=== PATIENT | female | born 1985 | race Caucasian/White ===

== ENCOUNTER 2022-05-10 13:13 | Emergency (ER) | payer BC, OTHER, SELFPAY ==
[2022-05-10 14:26] VITALS: BP 143/74; PULSE 109; RESP 16; TEMP 37.3; O2SAT 98; BMI 47.1
[2022-05-10 14:57] LABS: MANUAL DIFF FLAG NO
[2022-05-10 15:01] LABS: Appearance Urine Clear; Basophils Percent Auto 0.5 % (0-2); Color Urine Yellow; Eosinophils Percent Auto 0.2 % (0-4); Glucose Urine UA Negative (Negative); Hematocrit 38.7 % (37.0-47.0); Hemoglobin 13.6 g/dl (12.0-16.0); Imm Gran Abs Auto 0.04 X10*3/uL (0.00-0.03); Imm Gran Pct Auto 0.7 % (0.0-0.4); Leukocyte Esterase Urine Negative (Negative); Lymphocytes Absolute Auto 0.3 X10*3/uL (1.2-4.9); Lymphocytes Percent Auto 4.5 % (20-40); Mean Corpuscular HGB Conc 35.1 g/dl (31.0-35.0); Mean Corpuscular Hemoglobin 31.1 pg (27.0-33.0); Mean Corpuscular Volume 88.6 fL (80.0-98.0); Mean Platelet Volume 10.5 fL (9.4-12.3); Monocytes Absolute Auto 0.7 X10*3/uL (0.1-1.2); Neutrophils Absolute Auto 4.8 x10*3/uL (2.0-8.3); Neutrophils Percent Auto 82.1 % (45-73); Nitrite Urine Negative (Negative); PH 6.5 (5.0-9.0); Platelet Count 212 X10*3/uL (160-400); Red Blood Count 4.37 X10*6/uL (4.20-5.50); Red Cell Distribution Width 11.9 % (11.0-16.0); Urine Blood Negative (Negative); Urine Ketones Negative (Negative); Urine Protein 300 (3+) mg/dL (Neg-Trace); White Blood Count 5.8 X10*3/uL (4.8-10.8)
[2022-05-10 15:03] LABS: UPreg QC Valid YES; Urine Pregnancy NEGATIVE (NEGATIVE)
[2022-05-10 15:04] LABS: Bacteria Urine Trace (None Seen); Hyaline Casts Urine 0-2 /LPF (0-2); WBC Urine 0-5 /HPF (0-5)
[2022-05-10 15:12] LABS: Anion Gap 14 (12-20); Blood Urea Nitrogen 13 mg/dL (9-16); Calcium 8.7 mg/dL (8.4-10.2); Carbon Dioxide 24 mmol/L (22-29); Chloride 103 mmol/L (96-108); Creatinine Clr Calc Pharmacy 140.6; Estimated Glomerular Filt Rate > 60; Glucose Random 106 mg/dL (60-115); Potassium 4.2 mmol/L (3.3-5.1); Sodium 137 mmol/L (135-145)
[2022-05-10 15:16] LABS: COVID-19 Test Positive (Negative)
--- NOTE | 2022-05-10 16:27 | ED_ITS ---
HPI - Fever General Chief Complaint: Fever Stated Complaint: fever vomiting Time Seen by Provider: 05/10/22 16:10 Source: patient Mode of arrival: ambulatory Limitations: no limitations History of Present Illness HPI Narrative: 29-year-old female who has history of asthma who presents with fever, nausea and vomiting for 24 hours. Patient denies any diarrhea, abdominal pain, cough, chest pain, shortness of breath, headache, neck pain or stiffness. Patient has had 2 COVID vaccinations. Related Data Previous Rx's Medication Instructions Recorded nirmatrelvir 300 mg (150 mg See Rx Instructions PO .COMPLEX 05/10/22 x2)-ritonavir 100 mg tablet,dose #30 ea pack(EUA) (Paxlovid) ondansetron 4 mg disintegrating 4 mg PO Q6H PRN nausea and 05/10/22 tablet vomiting #20 tabs Allergies Allergy/AdvReac Type Severity Reaction Status Date / Time codeine [CODEINE] Allergy Intermediate HIVES Unverified 05/15/20 15:27 codiene Allergy Unknown hives Uncoded 11/08/11 00:00 Review of Systems Review of Systems: Yes all other systems are reviewed and are negative Constitutional: Constitutional: Reports no additional constitutional complaints, Denies body ache(s), Denies chills, Reports fever(s), Denies headache(s) and Denies weakness Eyes: Eyes: Reports no additional eye complaints and Denies change in vision ENT: Reports system reviewed and no additional complaints, except as documented, Denies dizziness, Denies headache(s), Denies nasal congestion, Denies nasal discharge and Denies neck pain Cardiovascular: Cardiovascular: Reports no additional cardiovascular complaints, Denies chest pain, Denies leg edema and Denies dyspnea Respiratory: Respiratory: Reports no additional respiratory complaints, Denies cough and Denies dyspnea Gastrointestinal: Gastrointestinal: Reports no additional gastrointestinal complaints, Denies abdominal pain, Denies diarrhea, Reports nausea and Reports vomiting Genitourinary: Genitourinary: Reports no additional female genitourinary compl aints and Denies urinary incontinence Musculoskeletal: Musculoskeletal: Reports no additional musculoskeletal complaints, Denies back pain, Denies arthralgias, Denies joint swelling, Denies neck pain, Denies numbness and Denies tingling Integumentary/Breasts: Skin/Breast: Reports system reviewed and no additional complaints, except as docu and Denies rash Neurologic: Reports system reviewed and no additional complaints, except as documented, Denies Abnormal speech present, Denies dizziness, Denies headache(s), Denies numbness, Denies tingling and Denies weakness PMFSH Past Medical History Attestation statement: The following information was validated with the patient. Source: old records reviewed and nursing notes reviewed Social History Social History Advance Directives: No Advance Directives Information Provided: No Physical Exam Vital Signs: Vital Signs: Last Vital Signs Temp 99.1 F 05/10/22 14:26 Pulse 109 H 05/10/22 14:26 Resp 16 05/10/22 14:26 BP 143/74 H 05/10/22 14:26 Pulse Ox 98 05/10/22 14:26 O2 Del Method 05/10/22 14:26 BMI result Body Mass Index 47.1 Const: General: cooperative, healthy appearing, comfortable and no acute distress Orientation/consciousness: patient oriented x3 Limitations: no limitations HEENT: Head: Yes normal to inspection Ears: hearing grossly normal bilaterally and TM's normal bilaterally General nose exam: Normal external nose present Face and sinus: Yes normal facial exam Mouth: Normal oral and palatal mucosa present Throat: Yes posterior oropharynx normal, Yes tonsils normal and Yes uvula midline Eyes: General: appearance normal, both eyes and all related structures Pupils: Equal, round and reactive pupils present Neck: Neck: Yes normal visual inspection, Yes full ROM, Yes no lymphadenopathy and Yes no meningeal signs Chest: Chest palpation & inspection: normal inspection of the chest Resp: Effort & Inspection: normal respiratory effort Auscultation: clear to auscultation bilaterally Cardio: Rate: regular rate Rhythm: regular rhythm Peripheral pulses: Peripheral pulses 2+ throughout GI: Inspection: Yes normal to inspection Palpation (GI): Soft to palpation and nontender Auscultation: normal bowel sounds Back/Spine/Pelvis: Thoracic/Lumbar Spine: thoracic and lumbar spine normal to inspection Skin: General skin exam: no rashes or lesions noted Neuro: General: patient oriented x3, no meningeal signs, no focal motor deficits and normal sensation to monofilament Cranial nerves: Yes Equal, round and reactive pupils present Cognition (Neuro): normal cognition Speech: No Abnormal speech present Gait exam (Neuro): Normal gait present Motor exam (neuro): 5/5 motor strength present throughout Extrem: General: Yes normal to inspection, Yes no pedal edema and Yes no calf tenderness MDM - Fever MDM Narrative Medical decision making narrative: 37-year-old female here with flu-like symptoms for 24 hours. Patient had labs and a COVID screen from triage. COVID screen is positive. Patient has no hypoxia or tachypnea. She is afebrile at this time. She is tolerating p.o. fluids. She was provided with a patient information sheet on Paxlovid. Her labs including renal function and liver function are normal. Plan for discharge home with Leni BHATIA and Paxlovid Medical Records Attestation: I reviewed the patient's medical records. Lab Data Attestation: I reviewed the patient's lab results. Result diagrams: 05/10/22 14:39 05/10/22 14:39 Labs: Lab Results 05/10/22 05/10/22 05/10/22 Range/Units 14:39 14:39 14:39 WBC 5.8 (4.8-10.8) X10*3/uL RBC 4.37 (4.20-5.50) X10*6/uL Hgb 13.6 (12.0-16.0) g/dl Hct 38.7 (37.0-47.0) % MCV 88.6 (80.0-98.0) fL MCH 31.1 (27.0-33.0) pg MCHC 35.1 H (31.0-35.0) g/dl RDW 11.9 (11.0-16.0) % Plt Count 212 (160-400) X10*3/uL MPV 10.5 (9.4-12.3) fL Immature Gran % (Auto) 0.7 H (0.0-0.4) % Neut % (Auto) 82.1 H (45-73) % Lymph % (Auto) 4.5 L (20-40) % [place] % (Auto) 12.0 H (2-11) % Eos % (Auto) 0.2 (0-4) % Baso % (Auto) 0.5 (0-2) % Lymph # (Auto) 0.3 L (1.2-4.9) X10*3/uL [place] # (Auto) 0.7 (0.1-1.2) X10*3/uL Eos # (Auto) 0.0 (0.0-0.4) X10*3/uL Baso # (Auto) 0.0 (0.0-0.2) X10*3/uL Abs Immat Gran (auto) 0.04 H (0.00-0.03) X10*3/uL Absolute Neuts (auto) 4.8 (2.0-8.3) x10*3/uL Absolute Nucleated RBC 0.000 (0.0-0.012) X10*3/uL Nucleated RBC % (auto) 0.0 (0.0-0.2) /100WBC Sodium 137 (135-145) mmol/L Potassium 4.2 (3.3-5.1) mmol/L Chloride 103 (96-108) mmol/L Carbon Dioxide 24 (22-29) mmol/L Anion Gap 14 (12-20) BUN 13 (9-16) mg/dL Creatinine 0.81 (0.5-1.4) mg/dL Estim Creat Clear Calc 140.6 Estimated GFR > 60 Random Glucose 106 (60-115) mg/dL Calcium 8.7 (8.4-10.2) mg/dL Total Bilirubin 0.3 (0.0-1.0) mg/dL Direct Bilirubin < 0.2 (0.0-0.5) mg/dL AST 30 (5-31) U/L ALT 31 (0-31) U/L Alkaline Phosphatase 74 (39-117) U/L Total Protein 7.2 (6.5-8.0) g/dL Albumin 4.3 (3.5-5.0) g/dL Urine Color Urine Appearance Urine pH (5.0-9.0) Ur Specific [place] (1.005-1.025) Urine Protein (Neg-Trace) mg/dL Urine Glucose (UA) (Negative) mg/dL Urine Ketones (Negative) mg/dL Urine Blood (Negative) Urine Nitrite (Negative) Ur Leukocyte Esterase (Negative) Urine RBC (0-2) /HPF Urine WBC (0-5) /HPF Ur Squamous Epith Cells (0-2) /HPF Urine Bacteria (None Seen) Hyaline Casts (0-2) /LPF Urine Test (NEGATIVE) COVID-19 (SUJIT) Positive A (Negative) COVID-19 Clin Com See Note 05/10/22 05/10/22 Range/Units 14:39 14:39 WBC (4.8-10.8) X10*3/uL RBC (4.20-5.50) X10*6/uL Hgb (12.0-16.0) g/dl Hct (37.0-47.0) % MCV (80.0-98.0) fL MCH (27.0-33.0) pg MCHC (31.0-35.0) g/dl RDW (11.0-16.0) % Plt Count (160-400) X10*3/uL MPV (9.4-12.3) fL Immature Gran % (Auto) (0.0-0.4) % Neut % (Auto) (45-73) % Lymph % (Auto) (20-40) % [place] % (Auto) (2-11) % Eos % (Auto) (0-4) % Baso % (Auto) (0-2) % Lymph # (Auto) (1.2-4.9) X10*3/uL [place] # (Auto) (0.1-1.2) X10*3/uL Eos # (Auto) (0.0-0.4) X10*3/uL Baso # (Auto) (0.0-0.2) X10*3/uL Abs Immat Gran (auto) (0.00-0.03) X10*3/uL Absolute Neuts (auto) (2.0-8.3) x10*3/uL Absolute Nucleated RBC (0.0-0.012) X10*3/uL Nucleated RBC % (auto) (0.0-0.2) /100WBC Sodium (135-145) mmol/L Potassium (3.3-5.1) mmol/L Chloride (96-108) mmol/L Carbon Dioxide (22-29) mmol/L Anion Gap (12-20) BUN (9-16) mg/dL Creatinine (0.5-1.4) mg/dL Estim Creat Clear Calc Estimated GFR Random Glucose (60-115) mg/dL Calcium (8.4-10.2) mg/dL Total Bilirubin (0.0-1.0) mg/dL Direct Bilirubin (0.0-0.5) mg/dL AST (5-31) U/L ALT (0-31) U/L Alkaline Phosphatase (39-117) U/L Total Protein (6.5-8.0) g/dL Albumin (3.5-5.0) g/dL Urine Color Yellow Urine Appearance Clear Urine pH 6.5 (5.0-9.0) Ur Specific [place] 1.020 (1.005-1.025) Urine Protein 300 (3+) H (Neg-Trace) mg/dL Urine Glucose (UA) Negative (Negative) mg/dL Urine Ketones Negative (Negative) mg/dL Urine Blood Negative (Negative) Urine Nitrite Negative (Negative) Ur Leukocyte Esterase Negative (Negative) Urine RBC 3-5 H (0-2) /HPF Urine WBC 0-5 (0-5) /HPF Ur Squamous Epith Cells 3-5 (0-2) /HPF Urine Bacteria Trace (None Seen) Hyaline Casts 0-2 (0-2) /LPF Urine Test NEGATIVE (NEGATIVE) COVID-19 (SUJIT) (Negative) COVID-19 Clin Com Discharge Plan Discharge Clinical Impression: COVID-19 Patient Disposition: Home, Self-Care Instructions: COVID-19 (Coronavirus Disease 2019) (ED) Additional Instructions: quarantine for 5 days motrin or tylenol for pain or fevr paxlovid is not FDA approved and has an emergency use authorization only. See the fact sheet was provided. Common side effects of vomiting and diarrhea. Prescriptions: New ondansetron 4 mg tablet,disintegrating 4 mg PO Q6H PRN (Reason: nausea and vomiting) Qty: 20 0RF Paxlovid (EUA) 300 mg (150 mg x 2)-100 mg tablets,dose pack See Rx Instructions .ROUTE .COMPLEX Qty: 30 0RF Rx Instructions: take TWO 150 mg tablets of nirmatrelvir with ONE 100 mg tablet of ritonavir twice daily for 5 days Referrals: Physician,None [Primary Care Provider] - 1 week (Your PCP as needed) Stand Alone Forms: Work/School Release Interventions: ED Discharge Assessment Last Done: 05/10/22 17:16 Discharge Date/Time: 05/10/22 17:17
[2022-05-10 16:56] LABS: Alanine Aminotransferase 31 U/L (0-31); Albumin Level 4.3 g/dL (3.5-5.0); Alkaline Phosphatase 74 U/L (39-117); Aspartate Amino Transferase 30 U/L (5-31); Bilirubin Direct < 0.2 mg/dL (0.0-0.5); Bilirubin Total 0.3 mg/dL (0.0-1.0); Total Protein 7.2 g/dL (6.5-8.0)
== END 2022-05-10 17:17 | disposition home or self-care (01) ==
PROVIDERS: Nurse Practitioner Family; Emergency Provider Internal Medicine
DX: U07.1 COVID-19 (principal); R50.9 Fever, unspecified
CPT/HCPCS: 80048; 80076; 81001; 81003; 81025; 85025; 87635; 99282; 99283

== ENCOUNTER 2022-06-23 05:28 | Inpatient (IN) | payer BC, OTHER, SELFPAY ==
[2022-06-23] VITALS (11 sets, daily range): BP systolic 143–184; BP diastolic 78–91; PULSE 80–115; RESP 17–36; TEMP 37–38.7; O2SAT 97–100; BMI 47.7
--- NOTE | ~2022-06-23 | CT_ITS ---
EXAMINATION: CT ABDOMEN AND PELVIS WITH CONTRAST CLINICAL INFORMATION: Abdominal pain. Emergency evaluation COMPARISON: 04/23/2018 TECHNIQUE: Multidetector volumetric images were obtained from the superior aspect of the liver through the pubic symphysis following administration 85 mL of Omnipaque 350 intravenous contrast. Sagittal and coronal reformatted images were obtained on the technologist's workstation. Oral contrast: No This CT examination was performed using dose optimization techniques as appropriate, variously including the following: *Automated exposure control *Adjustment of mA and/or kV according to patient size (this includes techniques or standardized protocols for targeted exams where dose is matched to indication/reason for exam; i.e. extremities or head) *Use of iterative reconstruction technique DLP: 1173 mGy-cm FINDINGS: LUNG BASES: Mild bibasilar atelectasis likely due to poor inspiration and patient motion LIVER, GALLBLADDER, AND BILIARY TREE: Mild hepatic steatosis. No focal hepatic mass. No intrahepatic biliary dilatation. The gallbladder is absent. PANCREAS: Unremarkable. SPLEEN: Unremarkable. ADRENAL GLANDS: Unremarkable. KIDNEYS AND URETERS: The kidneys are normal in size, shape, and attenuation. No hydronephrosis, hydroureter, or calculi seen. No perinephric stranding. BLADDER: Unremarkable. GASTROINTESTINAL TRACT: No bowel obstruction or right or left lower quadrant inflammatory change. The vermiform appendix not clearly identified. ABDOMINAL WALL: No significant hernia is appreciated. LYMPH NODES: Normal. VASCULAR: Unremarkable. PELVIC VISCERA: Unremarkable. OSSEOUS STRUCTURES: Postsurgical change in the lower lumbar spine. No fracture. Degenerative changes in the lower thoracic spine and upper lumbar spine. CT/CT abdomen pelvis w IV con IMPRESSION: No acute abnormality. No bowel obstruction. Fleischner guidelines were followed.
--- NOTE | ~2022-06-23 | XR_ITS ---
EXAMINATION: PORTABLE CHEST 1 VIEW CLINICAL INFORMATION: cough . COMPARISON: 10/24/2011. TECHNIQUE: Portable frontal view of the chest was obtained. FINDINGS: The lungs are hypoexpanded. No focal infiltrate, effusion, edema, or pneumothorax. Cardiac and mediastinal silhouettes are within normal limits for technique. No acute bony abnormality seen. XR/XR chest 1V IMPRESSION: Hypoexpanded but otherwise no evidence of acute disease.
--- NOTE | ~2022-06-23 | MR_ITS ---
EXAMINATION: MR BRAIN WITHOUT CONTRAST CLINICAL INFORMATION: Altered metal status. COMPARISON: Head CT June 23, 2022. TECHNIQUE: Multiplanar, multisequence imaging of the brain was performed without intravenous contrast. Examination was prematurely terminated. No FLAIR sequence was acquired. FINDINGS: There is no acute infarction, mass, hemorrhage, or extra-axial collection. The ventricles, sulci, and basilar cisterns are normal in size and configuration. 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 There is some distortion/narrowing of the cerebral aqueduct. The flow voids of the major intracranial arteries appear intact. The bones and extracranial soft tissues are unremarkable. MR/MR head/brain wo con IMPRESSION: No acute infarct, mass lesion, intracranial hemorrhage, or evidence of hydrocephalus. 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 Given the mass effect, follow-up/surveillance is recommended.
--- NOTE | ~2022-06-23 | CT_ITS ---
EXAMINATION: CT HEAD WITHOUT CONTRAST CLINICAL INFORMATION: Altered mental status COMPARISON: None TECHNIQUE: Contiguous axial imaging was performed from the skull base to vertex without intravenous administration of contrast. This CT examination was performed using dose optimization techniques as appropriate, variously including the following: *Automated exposure control *Adjustment of mA and/or kV according to patient size (this includes techniques or standardized protocols for targeted exams where dose is matched to indication/reason for exam; i.e. extremities or head) *Use of iterative reconstruction technique DLP: 717 mGy-cm FINDINGS: Intracranial structures within normal limits. Patricio-white matter differentiation is preserved. No evolving infarct, mass lesion, mass effect, midline shift, hemorrhage or extra-axial fluid collections are identified. There is mild disconjugate gaze otherwise intraorbital structures are unremarkable. Bony structures are intact, soft tissues are within normal limits. Sinuses and mastoids are free of disease. CT/CT head/brain wo IV con IMPRESSION: No acute intracranial pathology.
--- NOTE | ~2022-06-23 | MR_ITS ---
EXAMINATION: MR BRAIN WITHOUT AND WITH CONTRAST CLINICAL INFORMATION: Follow-up encephalitis. COMPARISON: Prior brain MRI from 06/25/2022. TECHNIQUE: Multiplanar, multisequence imaging of the brain was performed before and after the intravenous administration of 10 mL of Gadavist. Limited study with motion artifacts. FINDINGS: No diffusion abnormalities are identified to suggest an acute infarct. The ventricles are normal in size. No mass effect or midline shift is seen. A few scattered punctate foci of T2 hyperintense signal change in the cerebral white matter are entirely nonspecific. No extra-axial fluid collections are seen. The brainstem and cerebellum are normal. There is no abnormal parenchymal or leptomeningeal enhancement. The gradient refocused acquisition demonstrates no pathologic magnetic susceptibility artifact to indicate underlying acute or chronic blood products. The craniovertebral junction, marrow signal, and midline structures are normal. The major intracranial flow voids at the level of the [place] are preserved. The dural venous sinus flow voids are maintained. The mastoid air cells and paranasal sinuses are well aerated. MR/MR head/brain wo/w con IMPRESSION: Limited study with motion artifacts. No acute process. Minimal nonspecific white matter signal changes. No abnormal enhancement.
--- NOTE | 2022-06-23 06:55 | PC.NURSE ---
EKG completed at 0653.
--- NOTE | 2022-06-23 07:08 | ED_ITS ---
HPI - General Adult General Chief complaint: General Medical <Julio César Herman MD - Last Filed: 06/23/22 15:55> Stated complaint: Vomiting/AMS <Julio César Herman MD - Last Filed: 06/23/22 15:55> Time Seen by Provider: 06/23/22 06:59 <Julio César Herman MD - Last Filed: 06/23/22 15:55> Source: patient, family and old records reviewed <Julio César Herman MD - Last Filed: 06/23/22 15:55> Limitations: altered mental status <Julio César Herman MD - Last Filed: 06/23/22 15:55> History of Present Illness HPI narrative: Per patient's father, she woke up at around 01:00 vomiting. She had altered mental status and that she seemed confused and unable to speak more than 1-2 words. She is able ambulate with assistance to the car to come to the emergency department. Positive vomiting and complaining of severe low back pain. She has a history of back surgery with rods in place per her father. He does not know where was done her how long ago it was however. Unknown medications or other past medical history. It is unknown if she has had similar presentation in the past. She was seen here approximately 1 month ago with a diagnosis of COVID-19. Her father states she was in her usual state of health yesterday and had dinner with the family without apparent physical complaints. <Julio César Herman MD - Last Filed: 06/23/22 15:55> Related Data Home medications: Previous Rx's Medication Instructions Recorded nirmatrelvir 300 mg (150 mg See Rx Instructions PO .COMPLEX 05/10/22 x2)-ritonavir 100 mg tablet,dose #30 ea pack(EUA) (Paxlovid) ondansetron 4 mg disintegrating 4 mg PO Q6H PRN nausea and 05/10/22 tablet vomiting #20 tabs <Julio César Herman MD - Last Filed: 06/23/22 15:55> Allergies/adverse reactions: Allergies Allergy/AdvReac Type Severity Reaction Status Date / Time codeine [CODEINE] Allergy Intermediate HIVES Unverified 05/15/20 15:27 codiene Allergy Unknown hives Uncoded 11/08/11 00:00 <Julio César Herman MD - Last Filed: 06/23/22 15:55> Review of Systems Review of Systems: Unable to complete review of systems secondary to mental status <Julio César Herman MD - Last Filed: 06/23/22 15:55> [facility] Social History Social History: Social History Advance Directives: No Advance Directives Information Provided: No <Julio César Herman MD - Last Filed: 06/23/22 15:55> Physical Exam ED Vital Signs: Vital Signs - 24 hr 06/23/22 05:56 06/23/22 10:13 06/23/22 11:26 Temperature 99.1 F 101.5 F H Pulse Rate 107 H 109 H Respiratory Rate 25 H 22 H Blood Pressure 143/78 H 166/88 H Pulse Oximetry 99 97 Oxygen Delivery Method Room Air Room Air Oxygen Flow Rate 06/23/22 12:11 06/23/22 13:55 06/23/22 13:57 Temperature 98.6 F 98.6 F Pulse Rate 100 115 H 113 H Respiratory Rate 26 H 28 H 24 H Blood Pressure 158/91 H 164/86 H Pulse Oximetry 98 98 Oxygen Delivery Method Room Air Room Air Oxygen Flow Rate 06/23/22 15:54 06/23/22 16:37 06/23/22 17:12 Temperature 101.7 F H 101.3 F H Pulse Rate 80 101 H 92 Respiratory Rate 22 H 22 H 36 H Blood Pressure 171/89 H 165/89 H 175/83 H Pulse Oximetry 99 99 100 Oxygen Delivery Method Nasal Cannula Nasal Cannula Nasal Cannula Oxygen Flow Rate 2 2 2 BMI result Body Mass Index 47.7 <Julio César Herman MD - Last Filed: 06/23/22 15:55> Vital Signs - 24 hr 06/23/22 05:56 06/23/22 10:13 06/23/22 11:26 Temperature 99.1 F 101.5 F H Pulse Rate 107 H 109 H Respiratory Rate 25 H 22 H Blood Pressure 143/78 H 166/88 H Pulse Oximetry 99 97 Oxygen Delivery Method Room Air Room Air Oxygen Flow Rate 06/23/22 12:11 06/23/22 13:55 06/23/22 13:57 Temperature 98.6 F 98.6 F Pulse Rate 100 115 H 113 H Respiratory Rate 26 H 28 H 24 H Blood Pressure 158/91 H 164/86 H Pulse Oximetry 98 98 Oxygen Delivery Method Room Air Room Air Oxygen Flow Rate 06/23/22 15:54 06/23/22 16:37 06/23/22 17:12 Temperature 101.7 F H 101.3 F H Pulse Rate 80 101 H 92 Respiratory Rate 22 H 22 H 36 H Blood Pressure 171/89 H 165/89 H 175/83 H Pulse Oximetry 99 99 100 Oxygen Delivery Method Nasal Cannula Nasal Cannula Nasal Cannula Oxygen Flow Rate 2 2 2 BMI result Body Mass Index 47.7 <Jacklyn Petersen MD - Last Filed: 06/23/22 17:48> Const Other: Patient is awake, lying on her side on the stretcher and rocking. <Julio César Herman MD - Last Filed: 06/23/22 15:55> HENMT Other: Normocephalic atraumatic <Julio César Herman MD - Last Filed: 06/23/22 15:55> Eyes Other: Eyes are open. Pupils are equal <Julio César Herman MD - Last Filed: 06/23/22 15:55> Neck Other: No meningismus <Julio César Herman MD - Last Filed: 06/23/22 15:55> Resp Other: Clear and equal bilaterally <Julio César Herman MD - Last Filed: 06/23/22 15:55> Cardio Other: Tachycardic but regular without murmurs rubs or gallops <Julio César Herman MD - Last Filed: 06/23/22 15:55> GI Other: Soft, nontender nondistended <Julio César Herman MD - Last Filed: 06/23/22 15:55> Skin Other: Warm pink and dry without rash. No erythema over well-healed remote surgical site in her low lumbar spine <Julio César Herman MD - Last Filed: 06/23/22 15:55> Neuro Other: No obvious focal neuro deficit, but unable to comply with neuro exam When asked questions she states ?I can not? <Julio César Herman MD - Last Filed: 06/23/22 15:55> Extrem Other: No obvious extremity trauma <Julio César Herman MD - Last Filed: 06/23/22 15 :55> Course Course Course Narrative: Patient with altered mental status and no obvious focal neuro deficit. Anxiety Toxic ingestion No evidence for meningismus. Encephalopathy Gastroenteritis Stroke is very unlikely given nonfocal exam. She does appear to be aphasic but since symptom onset was well outside of thrombolytic window. Will treat with IV fluids, IV Zofran, IV midazolam. Await workup in reassess for changes after medication. 08:27. Patient still appears restless. Still not communicating normally. She has full range of motion of her neck without evidence for meningismus however[place] [address] and a lactic acid of 2.7. She has been vomiting and this could be from a gastroenteritis. Given mental status change, however, it is unclear if she has encephalopathy secondary to encephalitis versus conversion disorder. Await CT scan. In the meantime will start IV antibiotics. I do not feel we should wait for lumbar puncture as this will be difficult given a BMI of 47.7. Antibiotics to include ceftriaxone, vancomycin, and acyclovir. Continue to IV fluids. Will order a 2 L. her lactic acid is under for in her b lood pressure has been normal to high. 30 mL/kilogram not indicated at this time. But of 5 ft 5 in, ideal body weight of 144 lb or 65 kg. 2 L is slightly more than 30 mL/kilogram. 12:14. Patient now has a fever. Treated with Tylenol. Still awaiting CT scan of abdomen. Likely will require a lumbar puncture. 15:03. CT of the abdomen shows no obvious abnormalities. Will proceed with the lumbar puncture 15:53. LP performed after several tries without complication. Spinal fluid looks clear. Full sent to lab for further diagnostics <Julio César Herman MD - Last Filed: 06/23/22 15:55> Procedures Lumbar Puncture Time Out Performed: Yes <Julio César Herman MD - Last Filed: 06/23/22 15:55> Patient Position: left lateral decubitus <Julio César Herman MD - Last Filed: 06/23/22 15:55> Skin Prep: Povidone-Iodine 1% <Julio César Herman MD - Last Filed: 06/23/22 15:55> Local Anesthetic: lidocaine 1% <Julio César Herman MD - Last Filed: 06/23/22 15:55> Amount of anesthesia used (mL): 5 <Julio César Herman MD - Last Filed: 06/23/22 15:55> Spinal Needle Gauge: 22G <Julio César Herman MD - Last Filed: 06/23/22 15:55> Interspace Used: L3-L4 <Julio César Herman MD - Last Filed: 06/23/22 15:55> Opening Pressure (cmH20): 22 <Julio César Herman MD - Last Filed: 06/23/22 15:55> Fluid Initially Obtained: clear <Julio César Herman MD - Last Filed: 06/23/22 15:55> Complications: none <Julio César Herman MD - Last Filed: 06/23/22 15:55> Medical Decision Making MDM Narrative Medical decision making narrative: Patient was signed out to me pending LP results. The lumbar puncture showed a white count of 16 is cells. CSF glucose and protein was normal. No red cells. Antibiotic already started. Including vancomycin Rocephin and acy clovir. Patient has fever, elevated white counts. Elevated lactate. IV fluid was ordered. Patient's case discussed with the hospitalist team. COVID test was negative. Urine showed no signs of infection. Awaiting admissions. <Jacklyn Petersen MD - Last Filed: 06/23/22 17:48> Lab Data Result diagrams: : 06/23/22 07:46 06/23/22 07:46 <Julio César Herman MD - Last Filed: 06/23/22 15:55> Labs: Lab Results 06/23/22 06/23/22 06/23/22 Range/Units 07:46 07:46 07:46 WBC 17.7 H (4.8-10.8) X10*3/uL RBC 4.75 (4.20-5.50) X10*6/uL Hgb 15.0 (12.0-16.0) g/dl Hct 41.8 (37.0-47.0) % MCV 88.0 (80.0-98.0) fL MCH 31.6 (27.0-33.0) pg MCHC 35.9 H (31.0-35.0) g/dl RDW 11.9 (11.0-16.0) % Plt Count 280 D (160-400) X10*3/uL MPV 10.6 (9.4-12.3) fL Immature Gran % (Auto) 0.4 (0.0-0.4) % Neut % (Auto) 90.4 H (45-73) % Lymph % (Auto) 5.0 L (20-40) % [place] % (Auto) 3.9 (2-11) % Eos % (Auto) 0.1 (0-4) % Baso % (Auto) 0.2 (0-2) % Lymph # (Auto) 0.9 L (1.2-4.9) X10*3/uL [place] # (Auto) 0.7 (0.1-1.2) X10*3/uL Eos # (Auto) 0.0 (0.0-0.4) X10*3/uL Baso # (Auto) 0.0 (0.0-0.2) X10*3/uL Abs Immat Gran (auto) 0.07 H (0.00-0.03) X10*3/uL Absolute Neuts (auto) 16.0 H (2.0-8.3) x10*3/uL Absolute Nucleated RBC 0.000 (0.0-0.012) X10*3/uL Nucleated RBC % (auto) 0.0 (0.0-0.2) /100WBC Smear Tech's Comments VERIFIED Sodium 136 (135-145) mmol/L Potassium 4.2 (3.3-5.1) mmol/L Chloride 103 (96-108) mmol/L Carbon Dioxide 20 L (22-29) mmol/L Anion Gap 17 (12-20) BUN 15 (9-16) mg/dL Creatinine 0.73 (0.5-1.4) mg/dL Estim Creat Clear Calc 142.1 Estimated GFR > 60 Random Glucose 138 H (60-115) mg/dL Lactic Acid 2.6 H* (0.5-2.0) mmol/L Lactic Acid F/U @ 2Hr (0.5-2.0) mmol/L Calcium 9.2 (8.4-10.2) mg/dL Total Bilirubin 0.4 (0.0-1.0) mg/dL AST 21 (5-31) U/L ALT 22 (0-31) U/L Alkaline Phosphatase 76 (39-117) U/L Ammonia (13-55) umol/L Total Protein 7.4 (6.5-8.0) g/dL Albumin 4.3 (3.5-5.0) g/dL Urine Color Urine Appearance Urine pH (5.0-9.0) Ur Specific [place] (1.005-1.025) Urine Protein (Neg-Trace) mg/dL Urine Glucose (UA) (Negative) mg/dL Urine Ketones (Negative) mg/dL Urine Blood (Negative) Urine Nitrite (Negative) Ur Leukocyte Esterase (Negative) Urine RBC (0-2) /HPF Urine WBC (0-5) /HPF Ur Squamous Epith Cells (0-2) /HPF Urine Bacteria (None Seen) Hyaline Casts (0-2) /LPF Urine Test (NEGATIVE) CSF Tube Number CSF Volume ML CSF Appearance CSF Color CSF WBC MM*3 CSF RBC MM*3 CSF Neutrophils % CSF Lymphocytes % CSF Monocytes % % CSF Glucose mg/dL CSF Total Protein (15-45) mg/dL Urine Opiates Screen (Not Detect) Urine Fentanyl Screen (Not Detect) Ur Barbiturates Screen (Not Detect) Ur Phencyclidine Scrn (Not Detect) Ur Amphetamines Screen (Not Detect) U Benzodiazepines Scrn (Not Detect) Urine Cocaine Screen (Not Detect) U Marijuana (THC) Screen (Not Detect) Ethyl Alcohol < 10 mg/dL COVID-19 (SUJIT) (Negative) COVID-19 Clin Com 06/23/22 06/23/22 06/23/22 Range/Units 07:46 07:46 07:46 WBC (4.8-10.8) X10*3/uL RBC (4.20-5.50) X10*6/uL Hgb (12.0-16.0) g/dl Hct (37.0-47.0) % MCV (80.0-98.0) fL MCH (27.0-33.0) pg MCHC (31.0-35.0) g/dl RDW (11.0-16.0) % Plt Count (160-400) X10*3/uL MPV (9.4-12.3) fL Immature Gran % (Auto) (0.0-0.4) % Neut % (Auto) (45-73) % Lymph % (Auto) (20-40) % [place] % (Auto) (2-11) % Eos % (Auto) (0-4) % Baso % (Auto) (0-2) % Lymph # (Auto) (1.2-4.9) X10*3/uL [place] # (Auto) (0.1-1.2) X10*3/uL Eos # (Auto) (0.0-0.4) X10*3/uL Baso # (Auto) (0.0-0.2) X10*3/uL Abs Immat Gran (auto) (0.00-0.03) X10*3/uL Absolute Neuts (auto) (2.0-8.3) x10*3/uL Absolute Nucleated RBC (0.0-0.012) X10*3/uL Nucleated RBC % (auto) (0.0-0.2) /100WBC Smear Tech's Comments Sodium (135-145) mmol/L Potassium (3.3-5.1) mmol/L Chloride (96-108) mmol/L Carbon Dioxide (22-29) mmol/L Anion Gap (12-20) BUN (9-16) mg/dL Creatinine (0.5-1.4) mg/dL Estim Creat Clear Calc Estimated GFR Random Glucose (60-115) mg/dL Lactic Acid (0.5-2.0) mmol/L Lactic Acid F/U @ 2Hr (0.5-2.0) mmol/L Calcium (8.4-10.2) mg/dL Total Bilirubin (0.0-1.0) mg/dL AST (5-31) U/L ALT (0-31) U/L Alkaline Phosphatase (39-117) U/L Ammonia 36 35 (13-55) umol/L Total Protein (6.5-8.0) g/dL Albumin (3.5-5.0) g/dL Urine Color Urine Appearance Urine pH (5.0-9.0) Ur Specific [place] (1.005-1.025) Urine Protein (Neg-Trace) mg/dL Urine Glucose (UA) (Negative) mg/dL Urine Ketones (Negative) mg/dL Urine Blood (Negative) Urine Nitrite (Negative) Ur Leukocyte Esterase (Negative) Urine RBC (0-2) /HPF Urine WBC (0-5) /HPF Ur Squamous Epith Cells (0-2) /HPF Urine Bacteria (None Seen) Hyaline Casts (0-2) /LPF Urine Test (NEGATIVE) CSF Tube Number CSF Volume ML CSF Appearance CSF Color CSF WBC MM*3 CSF RBC MM*3 CSF Neutrophils % CSF Lymphocytes % CSF Monocytes % % CSF Glucose mg/dL CSF Total Protein (15-45) mg/dL Urine Opiates Screen (Not Detect) Urine Fentanyl Screen (Not Detect) Ur Barbiturates Screen (Not Detect) Ur Phencyclidine Scrn (Not Detect) Ur Amphetamines Screen (Not Detect) U Benzodiazepines Scrn (Not Detect) Urine Cocaine Screen (Not Detect) U Marijuana (THC) Screen (Not Detect) Ethyl Alcohol mg/dL COVID-19 (SUJIT) Negative (Negative) COVID-19 Clin Com See Note 06/23/22 06/23/22 06/23/22 Range/Units 09:48 09:48 09:48 WBC (4.8-10.8) X10*3/uL RBC (4.20-5.50) X10*6/uL Hgb (12.0-16.0) g/dl Hct (37.0-47.0) % MCV (80.0-98.0) fL MCH (27.0-33.0) pg MCHC (31.0-35.0) g/dl RDW (11.0-16.0) % Plt Count (160-400) X10*3/uL MPV (9.4-12.3) fL Immature Gran % (Auto) (0.0-0.4) % Neut % (Auto) (45-73) % Lymph % (Auto) (20-40) % [place] % (Auto) (2-11) % Eos % (Auto) (0-4) % Baso % (Auto) (0-2) % Lymph # (Auto) (1.2-4.9) X10*3/uL [place] # (Auto) (0.1-1.2) X10*3/uL Eos # (Auto) (0.0-0.4) X10*3/uL Baso # (Auto) (0.0-0.2) X10*3/uL Abs Immat Gran (auto) (0.00-0.03) X10*3/uL Absolute Neuts (auto) (2.0-8.3) x10*3/uL Absolute Nucleated RBC (0.0-0.012) X10*3/uL Nucleated RBC % (auto) (0.0-0.2) /100WBC Smear Tech's Comments Sodium (135-145) mmol/L Potassium (3.3-5.1) mmol/L Chloride (96-108) mmol/L Carbon Dioxide (22-29) mmol/L Anion Gap (12-20) BUN (9-16) mg/dL Creatinine (0.5-1.4) mg/dL Estim Creat Clear Calc Estimated GFR Random Glucose (60-115) mg/dL Lactic Acid (0.5-2.0) mmol/L Lactic Acid F/U @ 2Hr (0.5-2.0) mmol/L Calcium (8.4-10.2) mg/dL Total Bilirubin (0.0-1.0) mg/dL AST (5-31) U/L ALT (0-31) U/L Alkaline Phosphatase (39-117) U/L Ammonia (13-55) umol/L Total Protein (6.5-8.0) g/dL Albumin (3.5-5.0) g/dL Urine Color Yellow Urine Appearance Cloudy Urine pH 8.0 (5.0-9.0) Ur Specific [place] 1.020 (1.005-1.025) Urine Protein 300 (3+) H (Neg-Trace) mg/dL Urine Glucose (UA) Negative (Negative) mg/dL Urine Ketones Negative (Negative) mg/dL Urine Blood Negative (Negative) Urine Nitrite Negative (Negative) Ur Leukocyte Esterase Negative (Negative) Urine RBC 3-5 H (0-2) /HPF Urine WBC 0-5 (0-5) /HPF Ur Squamous Epith Cells 0-2 (0-2) /HPF Urine Bacteria None Seen (None Seen) Hyaline Casts 0-2 (0-2) /LPF Urine Test NEGATIVE (NEGATIVE) CSF Tube Number CSF Volume ML CSF Appearance CSF Color CSF WBC MM*3 CSF RBC MM*3 CSF Neutrophils % CSF Lymphocytes % CSF Monocytes % % CSF Glucose mg/dL CSF Total Protein (15-45) mg/dL Urine Opiates Screen Not Detected (Not Detect) Urine Fentanyl Screen Not Detected (Not Detect) Ur Barbiturates Screen Not Detected (Not Detect) Ur Phencyclidine Scrn Not Detected (Not Detect) Ur Amphetamines Screen Not Detected (Not Detect) U Benzodiazepines Scrn POSITIVE H (Not Detect) Urine Cocaine Screen Not Detected (Not Detect) U Marijuana (THC) Screen POSITIVE H (Not Detect) Ethyl Alcohol mg/dL COVID-19 (SUJIT) (Negative) COVID-19 Clin Com 06/23/22 06/23/22 06/23/22 Range/Units 13:09 15:59 16:00 WBC (4.8-10.8) X10*3/uL RBC (4.20-5.50) X10*6/uL Hgb (12.0-16.0) g/dl Hct (37.0-47.0) % MCV (80.0-98.0) fL MCH (27.0-33.0) pg MCHC (31.0-35.0) g/dl RDW (11.0-16.0) % Plt Count (160-400) X10*3/uL MPV (9.4-12.3) fL Immature Gran % (Auto) (0.0-0.4) % Neut % (Auto) (45-73) % Lymph % (Auto) (20-40) % [place] % (Auto) (2-11) % Eos % (Auto) (0-4) % Baso % (Auto) (0-2) % Lymph # (Auto) (1.2-4.9) X10*3/uL [place] # (Auto) (0.1-1.2) X10*3/uL Eos # (Auto) (0.0-0.4) X10*3/uL Baso # (Auto) (0.0-0.2) X10*3/uL Abs Immat Gran (auto) (0.00-0.03) X10*3/uL Absolute Neuts (auto) (2.0-8.3) x10*3/uL Absolute Nucleated RBC (0.0-0.012) X10*3/uL Nucleated RBC % (auto) (0.0-0.2) /100WBC Smear Tech's Comments Sodium (135-145) mmol/L Potassium (3.3-5.1) mmol/L Chloride (96-108) mmol/L Carbon Dioxide (22-29) mmol/L Anion Gap (12-20) BUN (9-16) mg/dL Creatinine (0.5-1.4) mg/dL Estim Creat Clear Calc Estimated GFR Random Glucose (60-115) mg/dL Lactic Acid (0.5-2.0) mmol/L Lactic Acid F/U @ 2Hr 1.2 (0.5-2.0) mmol/L Calcium (8.4-10.2) mg/dL Total Bilirubin (0.0-1.0) mg/dL AST (5-31) U/L ALT (0-31) U/L Alkaline Phosphatase (39-117) U/L Ammonia (13-55) umol/L Total Protein (6.5-8.0) g/dL Albumin (3.5-5.0) g/dL Urine Color Urine Appearance Urine pH (5.0-9.0) Ur Specific [place] (1.005-1.025) Urine Protein (Neg-Trace) mg/dL Urine Glucose (UA) (Negative) mg/dL Urine Ketones (Negative) mg/dL Urine Blood (Negative) Urine Nitrite (Negative) Ur Leukocyte Esterase (Negative) Urine RBC (0-2) /HPF Urine WBC (0-5) /HPF Ur Squamous Epith Cells (0-2) /HPF Urine Bacteria (None Seen) Hyaline Casts (0-2) /LPF Urine Test (NEGATIVE) CSF Tube Number 4 CSF Volume 1.0 ML CSF Appearance CLEAR CSF Color COLORLESS CSF WBC 16 H* MM*3 CSF RBC 0 MM*3 CSF Neutrophils 65 % CSF Lymphocytes 25 % CSF Monocytes % 10 % CSF Glucose 77 mg/dL CSF Total Protein 42.1 (15-45) mg/dL Urine Opiates Screen (Not Detect) Urine Fentanyl Screen (Not Detect) Ur Barbiturates Screen (Not Detect) Ur Phencyclidine Scrn (Not Detect) Ur Amphetamines Screen (Not Detect) U Benzodiazepines Scrn (Not Detect) Urine Cocaine Screen (Not Detect) U Marijuana (THC) Screen (Not Detect) Ethyl Alcohol mg/dL COVID-19 (SUJIT) (Negative) COVID-19 Clin Com <Julio César Herman MD - Last Filed: 06/23/22 15:55> Lab Results 06/23/22 06/23/22 06/23/22 Range/Units 07:46 07:46 07:46 WBC 17.7 H (4.8-10.8) X10*3/uL RBC 4.75 (4.20-5.50) X10*6/uL Hgb 15.0 (12.0-16.0) g/dl Hct 41.8 (37.0-47.0) % MCV 88.0 (80.0-98.0) fL MCH 31.6 (27.0-33.0) pg MCHC 35.9 H (31.0-35.0) g/dl RDW 11.9 (11.0-16.0) % Plt Count 280 D (160-400) X10*3/uL MPV 10.6 (9.4-12.3) fL Immature Gran % (Auto) 0.4 (0.0-0.4) % Neut % (Auto) 90.4 H (45-73) % Lymph % (Auto) 5.0 L (20-40) % [place] % (Auto) 3.9 (2-11) % Eos % (Auto) 0.1 (0-4) % Baso % (Auto) 0.2 (0-2) % Lymph # (Auto) 0.9 L (1.2-4.9) X10*3/uL [place] # (Auto) 0.7 (0.1-1.2) X10*3/uL Eos # (Auto) 0.0 (0.0-0.4) X10*3/uL Baso # (Auto) 0.0 (0.0-0.2) X10*3/uL Abs Immat Gran (auto) 0.07 H (0.00-0.03) X10*3/uL Absolute Neuts (auto) 16.0 H (2.0-8.3) x10*3/uL Absolute Nucleated RBC 0.000 (0.0-0.012) X10*3/uL Nucleated RBC % (auto) 0.0 (0.0-0.2) /100WBC Smear Tech's Comments VERIFIED Sodium 136 (135-145) mmol/L Potassium 4.2 (3.3-5.1) mmol/L Chloride 103 (96-108) mmol/L Carbon Dioxide 20 L (22-29) mmol/L Anion Gap 17 (12-20) BUN 15 (9-16) mg/dL Creatinine 0.73 (0.5-1.4) mg/dL Estim Creat Clear Calc 142.1 Estimated GFR > 60 Random Glucose 138 H (60-115) mg/dL Lactic Acid 2.6 H* (0.5-2.0) mmol/L Lactic Acid F/U @ 2Hr (0.5-2.0) mmol/L Calcium 9.2 (8.4-10.2) mg/dL Total Bilirubin 0.4 (0.0-1.0) mg/dL AST 21 (5-31) U/L ALT 22 (0-31) U/L Alkaline Phosphatase 76 (39-117) U/L Ammonia (13-55) umol/L Total Protein 7.4 (6.5-8.0) g/dL Albumin 4.3 (3.5-5.0) g/dL Urine Color Urine Appearance Urine pH (5.0-9.0) Ur Specific [place] (1.005-1.025) Urine Protein (Neg-Trace) mg/dL Urine Glucose (UA) (Negative) mg/dL Urine Ketones (Negative) mg/dL Urine Blood (Negative) Urine Nitrite (Negative) Ur Leukocyte Esterase (Negative) Urine RBC (0-2) /HPF Urine WBC (0-5) /HPF Ur Squamous Epith Cells (0-2) /HPF Urine Bacteria (None Seen) Hyaline Casts (0-2) /LPF Urine Test (NEGATIVE) CSF Tube Number CSF Volume ML CSF Appearance CSF Color CSF WBC MM*3 CSF RBC MM*3 CSF Neutrophils % CSF Lymphocytes % CSF Monocytes % % CSF Glucose mg/dL CSF Total Protein (15-45) mg/dL Urine Opiates Screen (Not Detect) Urine Fentanyl Screen (Not Detect) Ur Barbiturates Screen (Not Detect) Ur Phencyclidine Scrn (Not Detect) Ur Amphetamines Screen (Not Detect) U Benzodiazepines Scrn (Not Detect) Urine Cocaine Screen (Not Detect) U Marijuana (THC) Screen (Not Detect) Ethyl Alcohol < 10 mg/dL COVID-19 (SUJIT) (Negative) COVID-19 Clin Com 06/23/22 06/23/22 06/23/22 Range/Units 07:46 07:46 07:46 WBC (4.8-10.8) X10*3/uL RBC (4.20-5.50) X10*6/uL Hgb (12.0-16.0) g/dl Hct (37.0-47.0) % MCV (80.0-98.0) fL MCH (27.0-33.0) pg MCHC (31.0-35.0) g/dl RDW (11.0-16.0) % Plt Count (160-400) X10*3/uL MPV (9.4-12.3) fL Immature Gran % (Auto) (0.0-0.4) % Neut % (Auto) (45-73) % Lymph % (Auto) (20-40) % [place] % (Auto) (2-11) % Eos % (Auto) (0-4) % Baso % (Auto) (0-2) % Lymph # (Auto) (1.2-4.9) X10*3/uL [place] # (Auto) (0.1-1.2) X10*3/uL Eos # (Auto) (0.0-0.4) X10*3/uL Baso # (Auto) (0.0-0.2) X10*3/uL Abs Immat Gran (auto) (0.00-0.03) X10*3/uL Absolute Neuts (auto) (2.0-8.3) x10*3/uL Absolute Nucleated RBC (0.0-0.012) X10*3/uL Nucleated RBC % (auto) (0.0-0.2) /100WBC Smear Tech's Comments Sodium (135-145) mmol/L Potassium (3.3-5.1) mmol/L Chloride (96-108) mmol/L Carbon Dioxide (22-29) mmol/L Anion Gap (12-20) BUN (9-16) mg/dL Creatinine (0.5-1.4) mg/dL Estim Creat Clear Calc Estimated GFR Random Glucose (60-115) mg/dL Lactic Acid (0.5-2.0) mmol/L Lactic Acid F/U @ 2Hr (0.5-2.0) mmol/L Calcium (8.4-10.2) mg/dL Total Bilirubin (0.0-1.0) mg/dL AST (5-31) U/L ALT (0-31) U/L Alkaline Phosphatase (39-117) U/L Ammonia 36 35 (13-55) umol/L Total Protein (6.5-8.0) g/dL Albumin (3.5-5.0) g/dL Urine Color Urine Appearance Urine pH (5.0-9.0) Ur Specific [place] (1.005-1.025) Urine Protein (Neg-Trace) mg/dL Urine Glucose (UA) (Negative) mg/dL Urine Ketones (Negative) mg/dL Urine Blood (Negative) Urine Nitrite (Negative) Ur Leukocyte Esterase (Negative) Urine RBC (0-2) /HPF Urine WBC (0-5) /HPF Ur Squamous Epith Cells (0-2) /HPF Urine Bacteria (None Seen) Hyaline Casts (0-2) /LPF Urine Test (NEGATIVE) CSF Tube Number CSF Volume ML CSF Appearance CSF Color CSF WBC MM*3 CSF RBC MM*3 CSF Neutrophils % CSF Lymphocytes % CSF Monocytes % % CSF Glucose mg/dL CSF Total Protein (15-45) mg/dL Urine Opiates Screen (Not Detect) Urine Fentanyl Screen (Not Detect) Ur Barbiturates Screen (Not Detect) Ur Phencyclidine Scrn (Not Detect) Ur Amphetamines Screen (Not Detect) U Benzodiazepines Scrn (Not Detect) Urine Cocaine Screen (Not Detect) U Marijuana (THC) Screen (Not Detect) Ethyl Alcohol mg/dL COVID-19 (SUJIT) Negative (Negative) COVID-19 Clin Com See Note 06/23/22 06/23/22 06/23/22 Range/Units 09:48 09:48 09:48 WBC (4.8-10.8) X10*3/uL RBC (4.20-5.50) X10*6/uL Hgb (12.0-16.0) g/dl Hct (37.0-47.0) % MCV (80.0-98.0) fL MCH (27.0-33.0) pg MCHC (31.0-35.0) g/dl RDW (11.0-16.0) % Plt Count (160-400) X10*3/uL MPV (9.4-12.3) fL Immature Gran % (Auto) (0.0-0.4) % Neut % (Auto) (45-73) % Lymph % (Auto) (20-40) % [place] % (Auto) (2-11) % Eos % (Auto) (0-4) % Baso % (Auto) (0-2) % Lymph # (Auto) (1.2-4.9) X10*3/uL [place] # (Auto) (0.1-1.2) X10*3/uL Eos # (Auto) (0.0-0.4) X10*3/uL Baso # (Auto) (0.0-0.2) X10*3/uL Abs Immat Gran (auto) (0.00-0.03) X10*3/uL Absolute Neuts (auto) (2.0-8.3) x10*3/uL Absolute Nucleated RBC (0.0-0.012) X10*3/uL Nucleated RBC % (auto) (0.0-0.2) /100WBC Smear Tech's Comments Sodium (135-145) mmol/L Potassium (3.3-5.1) mmol/L Chloride (96-108) mmol/L Carbon Dioxide (22-29) mmol/L Anion Gap (12-20) BUN (9-16) mg/dL Creatinine (0.5-1.4) mg/dL Estim Creat Clear Calc Estimated GFR Random Glucose (60-115) mg/dL Lactic Acid (0.5-2.0) mmol/L Lactic Acid F/U @ 2Hr (0.5-2.0) mmol/L Calcium (8.4-10.2) mg/dL Total Bilirubin (0.0-1.0) mg/dL AST (5-31) U/L ALT (0-31) U/L Alkaline Phosphatase (39-117) U/L Ammonia (13-55) umol/L Total Protein (6.5-8.0) g/dL Albumin (3.5-5.0) g/dL Urine Color Yellow Urine Appearance Cloudy Urine pH 8.0 (5.0-9.0) Ur Specific [place] 1.020 (1.005-1.025) Urine Protein 300 (3+) H (Neg-Trace) mg/dL Urine Glucose (UA) Negative (Negative) mg/dL Urine Ketones Negative (Negative) mg/dL Urine Blood Negative (Negative) Urine Nitrite Negative (Negative) Ur Leukocyte Esterase Negative (Negative) Urine RBC 3-5 H (0-2) /HPF Urine WBC 0-5 (0-5) /HPF Ur Squamous Epith Cells 0-2 (0-2) /HPF Urine Bacteria None Seen (None Seen) Hyaline Casts 0-2 (0-2) /LPF Urine Test NEGATIVE (NEGATIVE) CSF Tube Number CSF Volume ML CSF Appearance CSF Color CSF WBC MM*3 CSF RBC MM*3 CSF Neutrophils % CSF Lymphocytes % CSF Monocytes % % CSF Glucose mg/dL CSF Total Protein (15-45) mg/dL Urine Opiates Screen Not Detected (Not Detect) Urine Fentanyl Screen Not Detected (Not Detect) Ur Barbiturates Screen Not Detected (Not Detect) Ur Phencyclidine Scrn Not Detected (Not Detect) Ur Amphetamines Screen Not Detected (Not Detect) U Benzodiazepines Scrn POSITIVE H (Not Detect) Urine Cocaine Screen Not Detected (Not Detect) U Marijuana (THC) Screen POSITIVE H (Not Detect) Ethyl Alcohol mg/dL COVID-19 (SUJIT) (Negative) COVID-19 Clin Com 06/23/22 06/23/22 06/23/22 Range/Units 13:09 15:59 16:00 WBC (4.8-10.8) X10*3/uL RBC (4.20-5.50) X10*6/uL Hgb (12.0-16.0) g/dl Hct (37.0-47.0) % MCV (80.0-98.0) fL MCH (27.0-33.0) pg MCHC (31.0-35.0) g/dl RDW (11.0-16.0) % Plt Count (160-400) X10*3/uL MPV (9.4-12.3) fL Immature Gran % (Auto) (0.0-0.4) % Neut % (Auto) (45-73) % Lymph % (Auto) (20-40) % [place] % (Auto) (2-11) % Eos % (Auto) (0-4) % Baso % (Auto) (0-2) % Lymph # (Auto) (1.2-4.9) X10*3/uL [place] # (Auto) (0.1-1.2) X10*3/uL Eos # (Auto) (0.0-0.4) X10*3/uL Baso # (Auto) (0.0-0.2) X10*3/uL Abs Immat Gran (auto) (0.00-0.03) X10*3/uL Absolute Neuts (auto) (2.0-8.3) x10*3/uL Absolute Nucleated RBC (0.0-0.012) X10*3/uL Nucleated RBC % (auto) (0.0-0.2) /100WBC Smear Tech's Comments Sodium (135-145) mmol/L Potassium (3.3-5.1) mmol/L Chloride (96-108) mmol/L Carbon Dioxide (22-29) mmol/L Anion Gap (12-20) BUN (9-16) mg/dL Creatinine (0.5-1.4) mg/dL Estim Creat Clear Calc Estimated GFR Random Glucose (60-115) mg/dL Lactic Acid (0.5-2.0) mmol/L Lactic Acid F/U @ 2Hr 1.2 (0.5-2.0) mmol/L Calcium (8.4-10.2) mg/dL Total Bilirubin (0.0-1.0) mg/dL AST (5-31) U/L ALT (0-31) U/L Alkaline Phosphatase (39-117) U/L Ammonia (13-55) umol/L Total Protein (6.5-8.0) g/dL Albumin (3.5-5.0) g/dL Urine Color Urine Appearance Urine pH (5.0-9.0) Ur Specific [place] (1.005-1.025) Urine Protein (Neg-Trace) mg/dL Urine Glucose (UA) (Negative) mg/dL Urine Ketones (Negative) mg/dL Urine Blood (Negative) Urine Nitrite (Negative) Ur Leukocyte Esterase (Negative) Urine RBC (0-2) /HPF Urine WBC (0-5) /HPF Ur Squamous Epith Cells (0-2) /HPF Urine Bacteria (None Seen) Hyaline Casts (0-2) /LPF Urine Test (NEGATIVE) CSF Tube Number 4 CSF Volume 1.0 ML CSF Appearance CLEAR CSF Color COLORLESS CSF WBC 16 H* MM*3 CSF RBC 0 MM*3 CSF Neutrophils 65 % CSF Lymphocytes 25 % CSF Monocytes % 10 % CSF Glucose 77 mg/dL CSF Total Protein 42.1 (15-45) mg/dL Urine Opiates Screen (Not Detect) Urine Fentanyl Screen (Not Detect) Ur Barbiturates Screen (Not Detect) Ur Phencyclidine Scrn (Not Detect) Ur Amphetamines Screen (Not Detect) U Benzodiazepines Scrn (Not Detect) Urine Cocaine Screen (Not Detect) U Marijuana (THC) Screen (Not Detect) Ethyl Alcohol mg/dL COVID-19 (SUJIT) (Negative) COVID-19 Clin Com <Jacklyn Petersen MD - Last Filed: 06/23/22 17:48> Discharge Plan Discharge Clinical Impression: Fever, Encephalopathy acute <Julio César Herman MD - Last Filed: 06/23/22 15:55> Patient Disposition: Admitted As Inpatient <Julio César Herman MD - Last Filed: 06/23/22 15:55>
[2022-06-23 07:55] LABS: Basophils Percent Auto 0.2 % (0-2); Eosinophils Percent Auto 0.1 % (0-4); Hematocrit 41.8 % (37.0-47.0); Imm Gran Abs Auto 0.07 X10*3/uL (0.00-0.03); Imm Gran Pct Auto 0.4 % (0.0-0.4); Lymphocytes Absolute Auto 0.9 X10*3/uL (1.2-4.9); MANUAL DIFF FLAG SCAN; Mean Corpuscular HGB Conc 35.9 g/dl (31.0-35.0); Mean Corpuscular Hemoglobin 31.6 pg (27.0-33.0); Mean Platelet Volume 10.6 fL (9.4-12.3); Monocytes Absolute Auto 0.7 X10*3/uL (0.1-1.2); Monocytes Percent Auto 3.9 % (2-11); Neutrophils Percent Auto 90.4 % (45-73); Platelet Count 280 X10*3/uL (160-400); Red Blood Count 4.75 X10*6/uL (4.20-5.50); Red Cell Distribution Width 11.9 % (11.0-16.0); SCAN SMEAR FLAG 1; White Blood Count 17.7 X10*3/uL (4.8-10.8)
[2022-06-23 08:11] LABS: Ammonia 35 umol/L (13-55); Ammonia 36 umol/L (13-55); COVID-19 Test Negative (Negative); IDNOW Serial# 55D5AD1C
[2022-06-23] MEDS: ondansetron HCL 4 MG/2 ML VIAL IVPUSH (08:12)
[2022-06-23] MEDS: Ketorolac Tromethamine 15 MG/ML VIAL 30 MG IVPUSH (08:12)
[2022-06-23] MEDS: Midazolam HCl/PF 2 MG/2 ML VIAL IVPUSH ×2 (08:12→15:22)
[2022-06-23] MEDS: 0.9 % Sodium Chloride 1,000 ML 999 ML IV (08:12)
--- NOTE | 2022-06-23 08:12 | PC.NURSE ---
Pt altered, only able to verbalize minimally stating I can't . NSR on monitor, respirations even and unlabored. IV established right AC.
[2022-06-23 08:17] LABS: Lactic Acid 2.6 mmol/L (0.5-2.0)
[2022-06-23 08:20] LABS: Alanine Aminotransferase 22 U/L (0-31); Albumin Level 4.3 g/dL (3.5-5.0); Alkaline Phosphatase 76 U/L (39-117); Anion Gap 17 (12-20); Aspartate Amino Transferase 21 U/L (5-31); Bilirubin Total 0.4 mg/dL (0.0-1.0); Blood Urea Nitrogen 15 mg/dL (9-16); Calcium 9.2 mg/dL (8.4-10.2); Carbon Dioxide 20 mmol/L (22-29); Chloride 103 mmol/L (96-108); Creatinine Clr Calc Pharmacy 142.1; Estimated Glomerular Filt Rate > 60; Ethanol < 10 mg/dL; Glucose Random 138 mg/dL (60-115); Potassium 4.2 mmol/L (3.3-5.1); Sodium 136 mmol/L (135-145); Total Protein 7.4 g/dL (6.5-8.0)
[2022-06-23 08:32] LABS: SLIDE REVIEW VERIFIED
[2022-06-23 09:51] LABS: Reflex Lactate? Lactic Acid Added
--- NOTE | 2022-06-23 09:52 | PC.NURSE ---
Pt altered, IV placed
--- NOTE | 2022-06-23 09:56 | PC.NURSE ---
Pt removed IV from right AC, took off monitor leads. Pt changed into hospital attire, belongings at bedside with father. Straight catheter completed and urine sent. New IV started in left AC.
[2022-06-23 10:01] LABS: Appearance Urine Cloudy; Color Urine Yellow; Glucose Urine UA Negative (Negative); Leukocyte Esterase Urine Negative (Negative); Nitrite Urine Negative (Negative); UMIC TRIGGER UACC YES; Urine Blood Negative (Negative); Urine Ketones Negative (Negative); Urine Protein 300 (3+) mg/dL (Neg-Trace)
[2022-06-23 10:02] LABS: UPreg QC Valid YES; Urine Pregnancy NEGATIVE (NEGATIVE)
[2022-06-23 10:06] LABS: Bacteria Urine None Seen (None Seen); Hyaline Casts Urine 0-2 /LPF (0-2); Squamous Epithelial Cell Urine 0-2 /HPF (0-2); WBC Urine 0-5 /HPF (0-5)
[2022-06-23] MEDS: cefTRIAXone sodium 2 GM in 0.9 % Sodium Chloride 50 ML IV (10:07)
--- NOTE | 2022-06-23 10:17 | PC.NURSE ---
Father took belongings home. Mother now at bedside
--- NOTE | 2022-06-23 10:24 | PC.NURSE ---
Pt increasingly restless at this time.
[2022-06-23] MEDS: Haloperidol Lactate 5 MG/ML VIAL 2 MG IVPUSH (10:25)
[2022-06-23 10:27] LABS: Amphetamine Screen Urine Not Detected (Not Detect); Barbiturates, Urine Not Detected (Not Detect); Benzodiazepines Screen Urine POSITIVE (Not Detect); Cannabinoid Screen Urine POSITIVE (Not Detect); Cocaine Screen Urine Not Detected (Not Detect); Fentanyl, urine Not Detected (Not Detect); Opiate Screen Urine Not Detected (Not Detect); Phencyclidine Screen Urine Not Detected (Not Detect)
--- NOTE | 2022-06-23 10:57 | PC.NURSE ---
Pt medicated for agitation. Off to CT scan at this time.
[2022-06-23] MEDS: Midazolam HCl/PF 2 MG/2 ML VIAL 4 MG IVPUSH (11:17)
--- NOTE | 2022-06-23 11:21 | PC.NURSE ---
CT scan unable to complete abd/pelvis. Scan of head completed.
[2022-06-23] MEDS: Acetaminophen Supp 650 MG SUPP.RECT PR ×2 (11:53→17:07)
[2022-06-23 13:30] LABS: ~Lactic Acid-LAB USE ONLY 1.2 mmol/L (0.5-2.0)
--- NOTE | 2022-06-23 13:36 | ECG_ITS ---
Test Reason : ALTERED MENTAL Blood Pressure : / mmHG Vent. Rate : 103 BPM Atrial Rate : 103 BPM P-R Int : 160 ms QRS Dur : 094 ms QT Int : 346 ms P-R-T Axes : 021 048 019 degrees QTc Int : 453 ms Sinus tachycardia Otherwise normal ECG When compared with ECG of 24-OCT-2011 23:23, T wave inversion no longer evident in Inferior leads Heart rate has decreased ST no longer depressed in Anterolateral leads Referred By: Julio César Herman Electronically Signed By:SHARON SAUCEDO MD
--- NOTE | 2022-06-23 13:54 | PC.NURSE ---
Pt able to follow commands at this time, more alert. Able to complete CT scans. Sinus tach on the monitor.
[2022-06-23] MEDS: ACYCLOVIR SODIUM IV (13:57)
[2022-06-23] MEDS: SODIUM CHLORIDE 0.9% IV (13:57)
[2022-06-23] MEDS: iohexoL 350 MG/ML 100 ML INFUS..BTL IV (14:09)
[2022-06-23] MEDS: HYDROmorphone HCl 1 MG/ML SYRINGE IVPUSH (15:19)
--- NOTE | 2022-06-23 15:50 | PC.NURSE ---
Dr Herman at bedside to perform lumbar puncture. Pt tolerated procedure. 97-99% on room air
[2022-06-23 16:47] LABS: Appearance CSF CLEAR; CSF Tube # 4; Color CSF COLORLESS
[2022-06-23 16:48] LABS: Red Blood Cell CSF 0 MM*3
[2022-06-23 16:50] LABS: White Blood Cell CSF 16 MM*3
[2022-06-23 16:53] LABS: Glucose CSF 77 mg/dL; Total Protein CSF 42.1 mg/dL (15-45)
[2022-06-23 17:06] LABS: CSF Monos 10 %; Lymphocytes CSF 25 %; Neutrophils CSF 65 %
[2022-06-23] MEDS: methylPREDNISolone Sod Succ 125 MG/2 ML VIAL IVPUSH (17:11)
[2022-06-23] MEDS: cefTRIAXone sodium 1 GM in 0.9 % Sodium Chloride 50 ML IV ×2 (17:11→20:40)
--- NOTE | 2022-06-23 17:59 | PHA.MEDREC ---
Pharmacy Consult ? Medication Reconciliation Pharmacy has completed the medication reconciliation.
[2022-06-23 18:14] LABS: Cryptococcus neoformans/gattii Not Detected (Not Detect.); Enterovirus Not Detected (Not Detect.); Escherichia coli K1 Not Detected (Not Detect.); Haemophilus influenzae Not Detected (Not Detect.); Herpes simplex virus 1 Not Detected (Not Detect.); Herpes simplex virus 2 Not Detected (Not Detect.); Human herpesvirus 6 Not Detected (Not Detect.); Human parechovirus Not Detected (Not Detect.); Listeria monocytogenes Not Detected (Not Detect.); Neisseria meningitidis Not Detected (Not Detect.); Streptococcus agalactiae Not Detected (Not Detect.); Streptococcus pneumoniae Not Detected (Not Detect.); Varicella zoster virus Not Detected (Not Detect.)
--- NOTE | 2022-06-23 18:35 | PM.IMHP ---
History of Present Illness Date of Service: 06/23/22 Chief Complaint: Altered mental status All information gleaned from chart and staff as patient is somnolent but arousable. Family states patient woke up around 01:00 this morning vomiting; they also noted her to to be confused and nonsensical which is not her baseline. She was having difficulty ambulating was able to get to the car with assistance. Family states she also complained of low back pain in the absence of injury. In the emergency room, she was confused and rambling. Workup in the emergency room including abdominal pelvis CT/head CT/checks x-ray failed to demonstrate any acute pathology. [place] [address] in and otherwise unremarkable chemistries. Urinalysis was bland. Lumbar puncture was done and demonstrated 16 wbc's per high-power field. Cultures pending. She was treated empirically with ceftriaxone/vancomycin/acyclovir pending cultures Review of Systems Review of Systems: Unable to obtain PMFSH Social History Advance Directives: No Advance Directives Information Provided: No Meds Allergies Allergy/AdvReac Type Severity Reaction Status Date / Time codeine [CODEINE] Allergy Intermediate HIVES Unverified 05/15/20 15:27 codiene Allergy Unknown hives Uncoded 11/08/11 00:00 Active Medications: Current Medications Acetaminophen (Acetaminophen 325 Mg Tablet) 650 mg PO Q6H PRN PRN Reason: Pain, Mild (Pain Scale 1-3) Enoxaparin Sodium (Enoxaparin Sodium 40 Mg/0.4 Ml Syringe) 40 mg SUBCUT Q24H COMFORT Dextrose/Sodium Chloride (D51/2ns) 1,000 mls @ 100 mls/hr IVCONT .Q10H COMFORT Lisinopril (Lisinopril 10 Mg Tablet) 10 mg PO DAILY COMFORT; Protocol Ondansetron HCl (Ondansetron Hcl 4 Mg/2 Ml Vial) 4 mg IVPUSH Q8H PRN PRN Reason: Nausea and Vomiting Sodium Chloride (0.9 % Sodium Chloride Flush 3 Ml Syringe) 3 ml IVFLUSH QSHIFT COMFORT Home Medications Medication Instructions Recorded Confirmed Last Taken Type amitriptyline 100 mg tablet 1 tab PO BEDTIME 06/23/22 06/23/22 Unknown History hydroxyzine HCl 50 mg tablet 1 tab PO TID PRN anxiety 06/23/22 06/23/22 Unknown History ibuprofen 800 mg tablet 1 tab PO Q8H PRN pain 06/23/22 06/23/22 Unknown History lisinopril 10 mg tablet 1 tab PO DAILY 06/23/22 06/23/22 Unknown History tizanidine 4 mg tablet 1 tab PO Q6H PRN muscle spasm 06/23/22 06/23/22 Unknown History tramadol 50 mg tablet 1 tab PO Q6H PRN pain 06/23/22 06/23/22 Unknown History Physical Exam Vital Signs and Narrative: Vital Signs: Last Vital Signs Temp 100.0 F 06/23/22 18:17 Pulse 108 H 06/23/22 18:17 Resp 20 06/23/22 18:17 BP 184/88 H 06/23/22 18:17 Pulse Ox 99 06/23/22 18:17 O2 Del Method 06/23/22 18:17 O2 Flow Rate 2 06/23/22 18:17 BMI result Body Mass Index 47.7 Const: Other: Somnolent/minimally arousable (secondary to medication prior to LP) Resp: Other: Clear to auscultation bilaterally no rales rhonchi or wheezes Cardio: Other: No S4; positive S1-S2; no S3 murmurs rubs or gallops GI: Other: Soft nontender nondistended with normoactive bowel sounds Extrem: Other: No edema Results Labs CBC and Chem 7: 06/23/22 07:46 06/23/22 07:46 Labs: Laboratory Results - last 24 hr 06/23/22 06/23/22 06/23/22 07:46 07:46 07:46 MCV 88.0 MCH 31.6 MCHC 35.9 H RDW 11.9 Plt Count 280 D MPV 10.6 Immature Gran % (Auto) 0.4 Neut % (Auto) 90.4 H Lymph % (Auto) 5.0 L [place] % (Auto) 3.9 Eos % (Auto) 0.1 Baso % (Auto) 0.2 Lymph # (Auto) 0.9 L [place] # (Auto) 0.7 Eos # (Auto) 0.0 Baso # (Auto) 0.0 Abs Immat Gran (auto) 0.07 H Absolute Neuts (auto) 16.0 H Absolute Nucleated RBC 0.000 Nucleated RBC % (auto) 0.0 Smear Tech's Comments VERIFIED Anion Gap 17 Estim Creat Clear Calc 142.1 Estimated GFR > 60 Random Glucose 138 H Lactic Acid 2.6 H* Lactic Acid F/U @ 2Hr Calcium 9.2 Total Bilirubin 0.4 AST 21 ALT 22 Alkaline Phosphatase 76 Ammonia Total Protein 7.4 Albumin 4.3 Urine Color Urine Appearance Urine pH Ur Specific [place] Urine Protein Urine Glucose (UA) Urine Ketones Urine Blood Urine Nitrite Ur Leukocyte Esterase Urine RBC Urine WBC Ur Squamous Epith Cells Urine Bacteria Hyaline Casts Urine Test CSF Tube Number CSF Volume CSF Appearance CSF Color CSF WBC CSF RBC CSF Neutrophils CSF Lymphocytes CSF Monocytes % CSF Glucose CSF Total Protein CSF C.neoform/gat PCR CSF CMV DNA (PCR) CSF Enterovirus (PCR) CSF E. coli K1 (PCR) CSF H. influenzae (PCR) CSF HSV I (PCR) CSF HSV II (PCR) CSF HHV 6 (PCR) CSF L.monocytogenes PCR CSF N. meningitidis PCR CSF Parechovirus (PCR) CSF S. agalactiae (PCR) CSF S. pneumoniae (PCR) CSF VZV (PCR) Urine Opiates Screen Urine Fentanyl Screen Ur Barbiturates Screen Ur Phencyclidine Scrn Ur Amphetamines Screen U Benzodiazepines Scrn Urine Cocaine Screen U Marijuana (THC) Screen Ethyl Alcohol < 10 COVID-19 (SUJIT) COVID-19 Clin Com 06/23/22 06/23/22 06/23/22 07:46 07:46 07:46 MCV MCH MCHC RDW Plt Count MPV Immature Gran % (Auto) Neut % (Auto) Lymph % (Auto) [place] % (Auto) Eos % (Auto) Baso % (Auto) Lymph # (Auto) [place] # (Auto) Eos # (Auto) Baso # (Auto) Abs Immat Gran (auto) Absolute Neuts (auto) Absolute Nucleated RBC Nucleated RBC % (auto) Smear Tech's Comments Anion Gap Estim Creat Clear Calc Estimated GFR Random Glucose Lactic Acid Lactic Acid F/U @ 2Hr Calcium Total Bilirubin AST ALT Alkaline Phosphatase Ammonia 36 35 Total Protein Albumin Urine Color Urine Appearance Urine pH Ur Specific [place] Urine Protein Urine Glucose (UA) Urine Ketones Urine Blood Urine Nitrite Ur Leukocyte Esterase Urine RBC Urine WBC Ur Squamous Epith Cells Urine Bacteria Hyaline Casts Urine Test CSF Tube Number CSF Volume CSF Appearance CSF Color CSF WBC CSF RBC CSF Neutrophils CSF Lymphocytes CSF Monocytes % CSF Glucose CSF Total Protein CSF C.neoform/gat PCR CSF CMV DNA (PCR) CSF Enterovirus (PCR) CSF E. coli K1 (PCR) CSF H. influenzae (PCR) CSF HSV I (PCR) CSF HSV II (PCR) CSF HHV 6 (PCR) CSF L.monocytogenes PCR CSF N. meningitidis PCR CSF Parechovirus (PCR) CSF S. agalactiae (PCR) CSF S. pneumoniae (PCR) CSF VZV (PCR) Urine Opiates Screen Urine Fentanyl Screen Ur Barbiturates Screen Ur Phencyclidine Scrn Ur Amphetamines Screen U Benzodiazepines Scrn Urine Cocaine Screen U Marijuana (THC) Screen Ethyl Alcohol COVID-19 (SUJIT) Negative COVID-19 Clin Com See Note 06/23/22 06/23/22 06/23/22 09:48 09:48 09:48 MCV MCH MCHC RDW Plt Count MPV Immature Gran % (Auto) Neut % (Auto) Lymph % (Auto) [place] % (Auto) Eos % (Auto) Baso % (Auto) Lymph # (Auto) [place] # (Auto) Eos # (Auto) Baso # (Auto) Abs Immat Gran (auto) Absolute Neuts (auto) Absolute Nucleated RBC Nucleated RBC % (auto) Smear Tech's Comments Anion Gap Estim Creat Clear Calc Estimated GFR Random Glucose Lactic Acid Lactic Acid F/U @ 2Hr Calcium Total Bilirubin AST ALT Alkaline Phosphatase Ammonia Total Protein Albumin Urine Color Yellow Urine Appearance Cloudy Urine pH 8.0 Ur Specific [place] 1.020 Urine Protein 300 (3+) H Urine Glucose (UA) Negative Urine Ketones Negative Urine Blood Negative Urine Nitrite Negative Ur Leukocyte Esterase Negative Urine RBC 3-5 H Urine WBC 0-5 Ur Squamous Epith Cells 0-2 Urine Bacteria None Seen Hyaline Casts 0-2 Urine Test NEGATIVE CSF Tube Number CSF Volume CSF Appearance CSF Color CSF WBC CSF RBC CSF Neutrophils CSF Lymphocytes CSF Monocytes % CSF Glucose CSF Total Protein CSF C.neoform/gat PCR CSF CMV DNA (PCR) CSF Enterovirus (PCR) CSF E. coli K1 (PCR) CSF H. influenzae (PCR) CSF HSV I (PCR) CSF HSV II (PCR) CSF HHV 6 (PCR) CSF L.monocytogenes PCR CSF N. meningitidis PCR CSF Parechovirus (PCR) CSF S. agalactiae (PCR) CSF S. pneumoniae (PCR) CSF VZV (PCR) Urine Opiates Screen Not Detected Urine Fentanyl Screen Not Detected Ur Barbiturates Screen Not Detected Ur Phencyclidine Scrn Not Detected Ur Amphetamines Screen Not Detected U Benzodiazepines Scrn POSITIVE H Urine Cocaine Screen Not Detected U Marijuana (THC) Screen POSITIVE H Ethyl Alcohol COVID-19 (SUJIT) COVID-19 [employer] Com 06/23/22 06/23/22 06/23/22 13:09 15:59 15:59 MCV MCH MCHC RDW Plt Count MPV Immature Gran % (Auto) Neut % (Auto) Lymph % (Auto) [place] % (Auto) Eos % (Auto) Baso % (Auto) Lymph # (Auto) [place] # (Auto) Eos # (Auto) Baso # (Auto) Abs Immat Gran (auto) Absolute Neuts (auto) Absolute Nucleated RBC Nucleated RBC % (auto) Smear Tech's Comments Anion Gap Estim Creat Clear Calc Estimated GFR Random Glucose Lactic Acid Lactic Acid F/U @ 2Hr 1.2 Calcium Total Bilirubin AST ALT Alkaline Phosphatase Ammonia Total Protein Albumin Urine Color Urine Appearance Urine pH Ur Specific [place] Urine Protein Urine Glucose (UA) Urine Ketones Urine Blood Urine Nitrite Ur Leukocyte Esterase Urine RBC Urine WBC Ur Squamous Epith Cells Urine Bacteria Hyaline Casts Urine Test CSF Tube Number 4 CSF Volume 1.0 CSF Appearance CLEAR CSF Color COLORLESS CSF WBC 16 H* CSF RBC 0 CSF Neutrophils 65 CSF Lymphocytes 25 CSF Monocytes % 10 CSF Glucose CSF Total Protein CSF C.neoform/gat PCR Not Detected CSF CMV DNA (PCR) Not Detected CSF Enterovirus (PCR) Not Detected CSF E. coli K1 (PCR) Not Detected CSF H. influenzae (PCR) Not Detected CSF HSV I (PCR) Not Detected CSF HSV II (PCR) Not Detected CSF HHV 6 (PCR) Not Detected CSF L.monocytogenes PCR Not Detected CSF N. meningitidis PCR Not Detected CSF Parechovirus (PCR) Not Detected CSF S. agalactiae (PCR) Not Detected CSF S. pneumoniae (PCR) Not Detected CSF VZV (PCR) Not Detected Urine Opiates Screen Urine Fentanyl Screen Ur Barbiturates Screen Ur Phencyclidine Scrn Ur Amphetamines Screen U Benzodiazepines Scrn Urine Cocaine Screen U Marijuana (THC) Screen Ethyl Alcohol COVID-19 (SUJIT) COVID-19 [employer] Com 06/23/22 16:00 MCV MCH MCHC RDW Plt Count MPV Immature Gran % (Auto) Neut % (Auto) Lymph % (Auto) [place] % (Auto) Eos % (Auto) Baso % (Auto) Lymph # (Auto) [place] # (Auto) Eos # (Auto) Baso # (Auto) Abs Immat Gran (auto) Absolute Neuts (auto) Absolute Nucleated RBC Nucleated RBC % (auto) Smear Tech's Comments Anion Gap Estim Creat Clear Calc Estimated GFR Random Glucose Lactic Acid Lactic Acid F/U @ 2Hr Calcium Total Bilirubin AST ALT Alkaline Phosphatase Ammonia Total Protein Albumin Urine Color Urine Appearance Urine pH Ur Specific [place] Urine Protein Urine Glucose (UA) Urine Ketones Urine Blood Urine Nitrite Ur Leukocyte Esterase Urine RBC Urine WBC Ur Squamous Epith Cells Urine Bacteria Hyaline Casts Urine Test CSF Tube Number CSF Volume CSF Appearance CSF Color CSF WBC CSF RBC CSF Neutrophils CSF Lymphocytes CSF Monocytes % CSF Glucose 77 CSF Total Protein 42.1 CSF C.neoform/gat PCR CSF CMV DNA (PCR) CSF Enterovirus (PCR) CSF E. coli K1 (PCR) CSF H. influenzae (PCR) CSF HSV I (PCR) CSF HSV II (PCR) CSF HHV 6 (PCR) CSF L.monocytogenes PCR CSF N. meningitidis PCR CSF Parechovirus (PCR) CSF S. agalactiae (PCR) CSF S. pneumoniae (PCR) CSF VZV (PCR) Urine Opiates Screen Urine Fentanyl Screen Ur Barbiturates Screen Ur Phencyclidine Scrn Ur Amphetamines Screen U Benzodiazepines Scrn Urine Cocaine Screen U Marijuana (THC) Screen Ethyl Alcohol COVID-19 (SUJIT) COVID-19 Clin Com Imaging Radiologist's Impressions: Impressions Head CT 06/23/22 11:22 IMPRESSION: No acute intracranial pathology. Abdomen/Pelvis CT 06/23/22 14:05 IMPRESSION: No acute abnormality. No bowel obstruction. Fleischner guidelines were followed. Chest X-Ray 06/23/22 17:50 IMPRESSION: Hypoexpanded but otherwise no evidence of acute disease. Assessment and Plan (1) Encephalopathy acute: Status: Acute (2) Fever: Status: Acute Plan 37-year-old female with essentially no acute past medical history awakes at 01:00 this morning with vomiting and altered mental status. In the emergency room, she had a fever of 101.8 however workup was essentially unremarkable at this time. Viral panel is pending 1. Acute encephalopathy -empiric acyclovir/vancomycin/ceftriaxone. .. Await cultures -ID/Neuro consult in a.m. -maintenance IV fluids -serial labs 2.HTN -continue lisinopril in a.m. -adjust as indicated Full code Lovenox Patient will require 2 midnights going forward for empiric IV treatment for encephalitis awaiting cultures. This cannot be achieved and lesser acute setting Quality Stroke Does the patient have a stroke diagnosis?: No VTE Prior VTE?: No VTE Risk Level:: Medical - moderate - high VTE Device Contraindication: Treatment Not Indicated VTE Drug Contraindication: N/A - Med Ordered
[2022-06-23 18:38] LABS: CSF Appearance Clear, Colorless; CSF Tube # 1
[2022-06-23 19:13] LABS: Influenza A PCR NEGATIVE (Negative); Influenza B PCR NEGATIVE (Negative); Resp Syncy Virus RNA Qual PCR NEGATIVE (Negative); SARS COV2 PCR INHOUSE NEGATIVE (Negative)
--- NOTE | 2022-06-23 19:26 | PHA.PROG ---
Admission Date/Time: June 23, 2022 18:26 Indication: [employer] Infection Weight in k kg Adjusted body weight in K.2 [place] body weight in K Obesity Dosing Indication % IBW: Obese model used Serum Creatinine - Last 168 Hours 06/23/22 07:46 Creatinine 0.73 Estimated CrCl and GFR - Last 168 Hours 06/23/22 07:46 Estim Creat Clear Calc 142.1 Estimated GFR > 60 Vancomycin Loading Dose: 2000 mg Current Vancomycin Dosing Regimen: 1000 mg Q12h Vancomycin Monitoring using AUC goal of 400 - 600 range with trough as surrogate marker: 445 mg/L/hr Date and Time for next Vancomycin Level to be drawn: 06/24 @2100 Pharmacist Comments on Vancomycin Plan: Obese model used. Patient received a proper load. Patient has [employer] infection which typically would indicate aggressive therapy. However patient is also on ceftriaxone and acyclovir. Acyclovir being renally cleared and ceftriaxone be partially renally cleared. Therefore when starting out I chose to stay within range but not go too aggressive. Renal function will be monitored daily. Level to be drawn after 2 doses to see how patient is clearing. If adjustment is needed based on level then adjustment will be done. Vancomycin dosing will take advantage of [employer] as a clinical decision support tool that uses Bayesian modeling to calculate individual patient's pharmacokinetic parameters and forecast the patient's drug concentration time course with the target goal AUC 24 range of 400 - 600 mg/L/hr.
[2022-06-23 20:05] LABS: Thyroid Stimulating Hormone 1.37 uIU/mL (0.32-4.0)
--- NOTE | 2022-06-23 20:30 | PC.NURSE ---
This RN clarified dosing of ceftriaxone for meningitis with pharmacy. Per pharmacy, given the two doses patient has already received, patient is to receive one final dose of 1gm now and then will resume the 2gm in the morning.
--- NOTE | 2022-06-23 21:23 | MHC.CM.PN ---
CM attempted to meet with admitted patient with bed assignment [id number]. Pt arrived to ED with AMS. Febrile. Diagnosis acute encephalopathy-unknown cause. Pt very altered. Neurology and ID pending. Prior to yesterday, pt was A&OX4. 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 Was independent. Lives with parents. No DME/services. No HCP. Unable to complete at this time due to AMS. Pt has PCP,but Mother does not know the name. Pfizer x2, no booster. Pt had Covid 05/10/22 and recovered. D/C plan pending hospital course and daily rounds. Family involved. Can transport if pt discharged home. No referrals placed. CM to follow for d/c planning.
--- NOTE | 2022-06-23 21:26 | PC.NURSE ---
I assumed care of Jacqueline at 1900. Since that time the pt has been... awkward. She is awake, sitting upright in stretcher, makes eye contact with RN. Her only verbal response, to every question I ask, is I can't followed by a grimace and sometimes tears. She repeatedly has gotten herself out of bed, removed all monitor cables from her (gauger delivery, BP cuff, sat probe) and has made multiple attempts to rip out her IV. At one point she got out of bed and left her room and was seen ambulating down the maza by other staff who stopped her. At that time she walked into the bathroom and voided without difficulty. Throughout this her gait was steady, ARNOLD x 4, no facial droop or unilateral weakness noted. THe pt has been prepared to go to [facility]-1 bed assignment. I notified house painting instructor that she would require a 1:1 and I was told to send a sitter from the E.D. to the floor with the patient. I had transport bring the pt upstairs in a wheelchair unmonitored since the pt will not keep monitor cables on and is agitated by them. In addition, I notified hospitalist about all of this behavior and questioned why the pt has had an MRi when there is seemingly no explanation (other than fever) for her encephalopathy. Pt has left department to [facility] at this time.
[2022-06-23] MEDS: Dextrose 5 % and 0.45 % NaCl 1,000 ML 100 ML IVCONT (23:24)
[2022-06-24 03:10] VITALS: BMI 47.5
[2022-06-24 07:16] LABS: MANUAL DIFF FLAG NO
[2022-06-24 07:20] LABS: Basophils Percent Auto 0.1 % (0-2); Hematocrit 36.7 % (37.0-47.0); Hemoglobin 13.4 g/dl (12.0-16.0); Imm Gran Abs Auto 0.08 X10*3/uL (0.00-0.03); Imm Gran Pct Auto 0.5 % (0.0-0.4); Lymphocytes Absolute Auto 1.6 X10*3/uL (1.2-4.9); Lymphocytes Percent Auto 10.3 % (20-40); Mean Corpuscular HGB Conc 36.5 g/dl (31.0-35.0); Mean Corpuscular Hemoglobin 32.1 pg (27.0-33.0); Mean Corpuscular Volume 87.8 fL (80.0-98.0); Mean Platelet Volume 10.9 fL (9.4-12.3); Monocytes Absolute Auto 1.3 X10*3/uL (0.1-1.2); Monocytes Percent Auto 8.1 % (2-11); Neutrophils Absolute Auto 12.9 x10*3/uL (2.0-8.3); Platelet Count 283 X10*3/uL (160-400); Red Blood Count 4.18 X10*6/uL (4.20-5.50); Red Cell Distribution Width 11.9 % (11.0-16.0); White Blood Count 15.9 X10*3/uL (4.8-10.8)
[2022-06-24 07:25] VITALS: BP 159/74; PULSE 74; RESP 20; TEMP 37.6; O2SAT 100
[2022-06-24 07:49] LABS: Alanine Aminotransferase 18 U/L (0-31); Albumin Level 3.9 g/dL (3.5-5.0); Alkaline Phosphatase 65 U/L (39-117); Anion Gap 15 (12-20); Aspartate Amino Transferase 16 U/L (5-31); Bilirubin Total 0.7 mg/dL (0.0-1.0); Blood Urea Nitrogen 15 mg/dL (9-16); Calcium 8.6 mg/dL (8.4-10.2); Carbon Dioxide 19 mmol/L (22-29); Chloride 104 mmol/L (96-108); Creatinine Clr Calc Pharmacy 149.9; Estimated Glomerular Filt Rate > 60; Glucose Fasting 138 mg/dL (60-99); Potassium 3.4 mmol/L (3.3-5.1); Sodium 135 mmol/L (135-145); Total Protein 6.7 g/dL (6.5-8.0)
--- NOTE | 2022-06-24 08:09 | ECG_ITS ---
Test Reason : ams Blood Pressure : / mmHG Vent. Rate : 087 BPM Atrial Rate : 087 BPM P-R Int : 152 ms QRS Dur : 092 ms QT Int : 376 ms P-R-T Axes : 011 041 025 degrees QTc Int : 452 ms Normal sinus rhythm Normal ECG When compared with ECG of 23-JUN-2022 06:43, No significant change was found Heart rate has decreased Referred By: Julio César Herman Electronically Signed By:SHARON SAUCEDO MD
--- NOTE | 2022-06-24 09:07 | P.CDIC_ITS ---
CDI Concurrent Query Documentation Clarification: PHYSICIAN'S DOCUMENTATION REQUEST Date of Query: 06/24/22907 Patient Name: Jacqueline Collado Admit Date: 06/23/22 Dear Doctor, A review of the medical record indicates additional documentation may be needed. Please review below and update the documentation accordingly. Clinical Indicators: Risk Factors/Clinical Indicators/Treatments admit with vomiting, altered mental status T 101.5 HR 109 RR 28 WBC 17.7 LA 2.7 treated empirically with Ceftriaxone, Vancomycin, Acyclovir ID pending Please clarify which, if any, of the following is the most likely etiology of the above symptoms and treatment rendered: * Sepsis * Systemic manifestations of infection, with 2 or more SIRS criteria which include: - Fever > 100.4F or hypothermia < 96.8 F - Leukocytosis - WBC > 12,000 or leukopenia, WBC < 4,000 or > 10% bands - Tachycardia > 90 beats/minute - Tachypnea - RR > 20 breaths/minute or PaCO2 < 32mmHg (Source: Merck Manual 2013) * Indicate the known or suspected organism * Indicate the known or suspected underlying infection, such as UTI, pneumonia, or cellulitis * Indicate if a suspected bacterial infection of unknown source * Indicate if associated with an implanted device such as a F/C, PICC line, orthopedic hardware, etc. * Other (please specify) * Unable to determine Use of terms such as suspected, likely, concern for, or probable (associated with a specific diagnosis that is being evaluated, monitored, or treated as if it exists) are acceptable and can be coded in the inpatient setting, when documented at the time of discharge. Thank you, Ameena Ruffin RN Extension: [phone] Please use your independent medical judgment in providing your response. THIS QUERY IS PART OF THE PERMANENT MEDICAL RECORD Provider Response: Other Other Diagnosis: Likely of viral encephalitis
--- NOTE | 2022-06-24 09:14 | P.CDIC_ITS ---
CDI Concurrent Query Documentation Clarification: PHYSICIAN'S DOCUMENTATION REQUEST Date of Query: 06/24/2215 Patient Name: Jacqueline Collado Admit Date: 06/23/22 Dear Doctor, A review of the medical record indicates additional documentation may be needed. Please review below and update the documentation accordingly. Clinical Indicators: Risk Factors/Clinical Indicators/Treatments Admit with AMS positive benzo, positive maijuana Neuro pending Per H&P: confused and nonsensical which is not her baseline Acute encephalopathy Based on the above, please further specify, in the Progress Notes, the known or suspected type of the documented encephalopathy: * Metabolic * Septic * Toxic * Toxic metabolic * Due to a specified condition (such as UTI, hyponatremia, CVA, etc.) * Other (please specify) * Unable to determine Use of terms such as suspected, likely, concern for, or probable (associated with a specific diagnosis that is being evaluated, monitored, or treated as if it exists) are acceptable and can be coded in the inpatient setting, when documented at the time of discharge. Thank you, Ameena Ruffin RN Extension: [phone] Please use your independent medical judgment in providing your response. THIS QUERY IS PART OF THE PERMANENT MEDICAL RECORD Provider Response: Other Other Diagnosis: Unable to determine at this time
[2022-06-24] MEDS: lisinopriL 10 MG TABLET PO (10:33)
[2022-06-24] MEDS: Acetaminophen 325 MG TABLET 650 MG PO (10:36)
[2022-06-24 11:28] VITALS: BP 173/80; PULSE 94; RESP 20; TEMP 37.9; O2SAT 99
--- NOTE | 2022-06-24 11:59 | P.CNNE_ITS ---
History of Present Illness Data of Consult Service Date: 06/24/22 Primary Care Provider: Unknown Physician HPI Reason for consult: Change in mental status 37 years old woman with previous history of IV drug use and somewhat similar admission in this hospital. This time she was brought to hospital with change in mental status with fever and leukocytosis. Multiple investigations were done including a lumbar puncture. This morning she was noted to be not responding and just morning. There was no witnessing of any seizure. He did not provide any history. Review of Systems Review of Systems: Could not be done with her [facility] Social History Social History Household Members: Unknown / Unable to assess Housing: Unknown / Unable to assess Unable to assess alcohol history related to: Unknown and Refusing to respond Patient Tobacco Use Status: Tobacco use Unknown Use of substances other than those prescribed or required for medical reasons: Refusing to respond Currently Displaying Signs/Symptoms of Drug Intoxication Withdrawal: No Advance Directives: No Advance Directives Information Provided: No Nutrition Risks: No Nutritional Risk Patient : No : No Poor oral hygiene: No service: No Current occupational status: employed Meds Allergies Allergy/AdvReac Type Severity Reaction Status Date / Time codeine [CODEINE] Allergy Intermediate HIVES Unverified 05/15/20 15:27 codiene Allergy Unknown hives Uncoded 11/08/11 00:00 Active Medications: Current Medications Acetaminophen (Acetaminophen 325 Mg Tablet) 650 mg PO Q6H PRN PRN Reason: Pain, Mild (Pain Scale 1-3) Last Admin: 06/24/22 10:36 Dose: 650 mg Enoxaparin Sodium (Enoxaparin Sodium 40 Mg/0.4 Ml Syringe) 40 mg SUBCUT Q24H [facility] Last Admin: 06/23/22 23:40 Dose: Not Given Dextrose/Sodium Chloride (D51/2ns) 1,000 mls @ 100 mls/hr IVCONT .Q10H [facility] Last Admin: 06/24/22 06:00 Dose: Not Given Vancomycin HCl 1,000 mg/ (Sodium Chloride) 270 mls @ 270 mls/hr IV Q12H [facility] Last Admin: 06/24/22 10:47 Dose: Not Given Ceftriaxone Sodium 2 gm/ (Sodium Chloride) 50 mls @ 100 mls/hr IV Q12H [facility] Last Admin: 06/24/22 07:34 Dose: Not Given Acyclovir Sodium 570 mg/ (Dextrose) 111.4 mls @ 110 mls/hr IV Q8H [facility] Last Admin: 06/24/22 07:33 Dose: Not Given Lisinopril (Lisinopril 10 Mg Tablet) 10 mg PO DAILY [facility]; Protocol Last Admin: 06/24/22 10:33 Dose: 10 mg Ondansetron HCl (Ondansetron Hcl 4 Mg/2 Ml Vial) 4 mg IVPUSH Q8H PRN PRN Reason: Nausea and Vomiting Pharmacy Consult (Consult Rx Vancomycin Dosing) 1 each MISCELLANE DAILY PRN PRN Reason: Consult order Sodium Chloride (0.9 % Sodium Chloride Flush 3 Ml Syringe) 3 ml IVFLUSH QSHIFT [facility] Last Admin: 06/24/22 10:29 Dose: Not Given Home Medications Medication Instructions Recorded Confirmed Last Taken Type amitriptyline 100 mg tablet 1 tab PO BEDTIME 06/23/22 06/23/22 Unknown History hydroxyzine HCl 50 mg tablet 1 tab PO TID PRN anxiety 06/23/22 06/23/22 Unknown History ibuprofen 800 mg tablet 1 tab PO Q8H PRN pain 06/23/22 06/23/22 Unknown History lisinopril 10 mg tablet 1 tab PO DAILY 06/23/22 06/23/22 Unknown History tizanidine 4 mg tablet 1 tab PO Q6H PRN muscle spasm 06/23/22 06/23/22 Unknown History tramadol 50 mg tablet 1 tab PO Q6H PRN pain 06/23/22 06/23/22 Unknown History Physical Exam Vital Signs: Vital Signs: Last Vital Signs Temp 100.3 F 06/24/22 11:28 Pulse 94 06/24/22 11:28 Resp 20 06/24/22 11:28 BP 173/80 H 06/24/22 11:28 Pulse Ox 99 06/24/22 11:28 O2 Del Method 06/24/22 11:28 O2 Flow Rate 2 06/23/22 18:17 BMI result Body Mass Index 47.5 Neuro: Other: She was very drowsy and was laying on her right side with eyes closed. With shouting and repeated trials, she open her eyes made eye contact and kept on saying yes. She did not answer any questions or followed commands. She was resistant to examination. There was no obvious abnormal posturing. Deep tendon reflexes were difficult to determine but seemed not to be hyperreflexic. Plantars were flat. Even eye examination was not complete. Results Labs CBC & Chem 7: 06/24/22 06:59 06/24/22 06:59 Labs: Short CBC 06/24/22 Range/Units 06:59 WBC 15.9 H (4.8-10.8) X10*3/uL Hgb 13.4 (12.0-16.0) g/dl Hct 36.7 L (37.0-47.0) % Plt Count 283 (160-400) X10*3/uL BMP 06/24/22 06:59 Sodium 135 Potassium 3.4 Chloride 104 Carbon Dioxide 19 L BUN 15 Creatinine 0.69 Calcium 8.6 D Liver Function 06/24/22 Range/Units 06:59 Total Bilirubin 0.7 (0.0-1.0) mg/dL AST 16 (5-31) U/L ALT 18 (0-31) U/L Alkaline Phosphatase 65 (39-117) U/L Albumin 3.9 (3.5-5.0) g/dL Noncontrast head CT did not reveal any significant abnormality. CSF white cell count was 16. Protein level was normal. Meningoencephalitis panel was negative. She was on broad-spectrum antibiotics and acyclovir. Microbiology Microbiology Results: Microbiology 06/23/22 16:00 Cerebrospinal Fluid Gram Stain - Final 06/23/22 16:00 Cerebrospinal Fluid CSF Examination - Final 06/23/22 16:00 Cerebrospinal Fluid Fluid Description - Final 06/23/22 16:00 Cerebrospinal Fluid CSF Culture - Preliminary No growth to date. 06/23/22 08:00 Blood - Venous Blood Culture - Preliminary No growth after 24 hours. 06/23/22 07:46 Blood - Venous Blood Culture - Preliminary No growth after 24 hours. Assessment and Plan (1) Encephalopathy acute: Status: Acute 37 years old woman with previous history of IV drug use and in admission in somewhat similar situation when she injected Ambien. She had multiple investigations that were suggestive of meningitis but her overall clinical situation was suggestive of meningoencephalitis. Her meningoencephalitis panel was negative. Consideration would be viral etiology or even a chemical etiology. For now I suggest continuing covering her for viruses and bacteria until her CSF cultures or any other culture definitively reveals or refute infection. Clinically, she was aphasic but etiology was unclear. An MRI of brain is recommended that could be done without contrast, which can help to define her pathology further. Procedures Date of Service Date of Service: 06/24/22
--- NOTE | 2022-06-24 13:44 | HE.PHANOTE ---
RE: emil Spoke Tremayne regarding pt's emil, last two scheduled doses were not given due to no IV access. Tremayne stated that pt is maxed out on sticks per nursing supervisor [employer] and that the MD is aware.
--- NOTE | 2022-06-24 14:07 | P.PNIM_ITS ---
Subjective Subjective Date of Service: 06/24/22 Interval History: Somnolent but arousable. Aphasic answering only yes to all questions Review of Systems Unable to obtain Physical Exam Vital Signs: Vital Signs: Last Vital Signs Temp 100.3 F 06/24/22 11:28 Pulse 94 06/24/22 11:28 Resp 20 06/24/22 11:28 BP 173/80 H 06/24/22 11:28 Pulse Ox 99 06/24/22 11:28 O2 Del Method 06/24/22 11:28 O2 Flow Rate 2 06/23/22 18:17 BMI result Body Mass Index 47.5 Const: Other: Somnolent/minimally arousable (secondary to medication prior to LP) Resp: Other: Clear to auscultation bilaterally no rales rhonchi or wheezes Cardio: Other: No S4; positive S1-S2; no S3 murmurs rubs or gallops GI: Other: Soft nontender nondistended with normoactive bowel sounds Extrem: Other: No edema Objective Data Active Medications Acetaminophen (Acetaminophen 325 Mg Tablet) 650 mg PO Q6H PRN PRN Reason: Pain, Mild (Pain Scale 1-3) Last Admin: 06/24/22 10:36 Dose: 650 mg Documented By: KALEY Enoxaparin Sodium (Enoxaparin Sodium 40 Mg/0.4 Ml Syringe) 40 mg SUBCUT Q24H [facility] Last Admin: 06/23/22 23:40 Dose: Not Given Documented By: SHANNAN Non-Admin Reason: Patient Refused Dextrose/Sodium Chloride (D51/2ns) 1,000 mls @ 100 mls/hr IVCONT .Q10H [facility] Last Admin: 06/24/22 13:55 Dose: Not Given Documented By: KALEY Non-Admin Reason: No Access Vancomycin HCl 1,000 mg/ (Sodium Chloride) 270 mls @ 270 mls/hr IV Q12H [facility] Last Admin: 06/24/22 10:47 Dose: Not Given Documented By: KALEY Non-Admin Reason: No Access Ceftriaxone Sodium 2 gm/ (Sodium Chloride) 50 mls @ 100 mls/hr IV Q12H [facility] Last Admin: 06/24/22 07:34 Dose: Not Given Documented By: KALEY Non-Admin Reason: No Access Acyclovir Sodium 570 mg/ (Dextrose) 111.4 mls @ 110 mls/hr IV Q8H [facility] Last Admin: 06/24/22 13:55 Dose: Not Given Documented By: KALEY Non-Admin Reason: No Access Lisinopril (Lisinopril 10 Mg Tablet) 10 mg PO DAILY [facility]; Protocol Last Admin: 06/24/22 10:33 Dose: 10 mg Documented By: KALEY Ondansetron HCl (Ondansetron Hcl 4 Mg/2 Ml Vial) 4 mg IVPUSH Q8H PRN PRN Reason: Nausea and Vomiting Pharmacy Consult (Consult Rx Vancomycin Dosing) 1 each MISCELLANE DAILY PRN PRN Reason: Consult order Sodium Chloride (0.9 % Sodium Chloride Flush 3 Ml Syringe) 3 ml IVFLUSH QSHIFT [facility] Last Admin: 06/24/22 10:29 Dose: Not Given Documented By: KALEY Non-Admin Reason: No Access Labs CBC & Chem 7: 06/24/22 06:59 06/24/22 06:59 Labs: Laboratory Results - last 24 hr 06/23/22 06/23/22 06/23/22 07:46 15:59 15:59 MCV MCH MCHC RDW Plt Count MPV Immature Gran % (Auto) Neut % (Auto) Lymph % (Auto) [place] % (Auto) Eos % (Auto) Baso % (Auto) Lymph # (Auto) [place] # (Auto) Eos # (Auto) Baso # (Auto) Abs Immat Gran (auto) Absolute Neuts (auto) Absolute Nucleated RBC Nucleated RBC % (auto) Anion Gap Estim Creat Clear Calc Estimated GFR Fasting Glucose Calcium Total Bilirubin AST ALT Alkaline Phosphatase Total Protein Albumin TSH 1.37 CSF Tube Number 4 CSF Volume 1.0 CSF Appearance CLEAR CSF Color COLORLESS CSF WBC 16 H* CSF RBC 0 CSF Neutrophils 65 CSF Lymphocytes 25 CSF Monocytes % 10 CSF Appearance (b) CSF Glucose CSF Total Protein CSF C.neoform/gat PCR Not Detected CSF CMV DNA (PCR) Not Detected CSF Enterovirus (PCR) Not Detected CSF E. coli K1 (PCR) Not Detected CSF H. influenzae (PCR) Not Detected CSF HSV I (PCR) Not Detected CSF HSV II (PCR) Not Detected CSF HHV 6 (PCR) Not Detected CSF L.monocytogenes PCR Not Detected CSF N. meningitidis PCR Not Detected CSF Parechovirus (PCR) Not Detected CSF S. agalactiae (PCR) Not Detected CSF S. pneumoniae (PCR) Not Detected CSF VZV (PCR) Not Detected Influenza Type A (PCR) Influenza Type B (PCR) RSV RNA Qual (PCR) SARS-CoV-2 RNA (RT-PCR) 06/23/22 06/23/22 06/24/22 16:00 18:15 06:59 MCV 87.8 MCH 32.1 MCHC 36.5 H RDW 11.9 Plt Count 283 MPV 10.9 Immature Gran % (Auto) 0.5 H Neut % (Auto) 81.0 H Lymph % (Auto) 10.3 L [place] % (Auto) 8.1 Eos % (Auto) 0.0 Baso % (Auto) 0.1 Lymph # (Auto) 1.6 [place] # (Auto) 1.3 H Eos # (Auto) 0.0 Baso # (Auto) 0.0 Abs Immat Gran (auto) 0.08 H Absolute Neuts (auto) 12.9 H Absolute Nucleated RBC 0.000 Nucleated RBC % (auto) 0.0 Anion Gap Estim Creat Clear Calc Estimated GFR Fasting Glucose Calcium Total Bilirubin AST ALT Alkaline Phosphatase Total Protein Albumin TSH CSF Tube Number 1 CSF Volume CSF Appearance CSF Color CSF WBC CSF RBC CSF Neutrophils CSF Lymphocytes CSF Monocytes % CSF Appearance (b) Clear, Colorless CSF Glucose 77 CSF Total Protein 42.1 CSF C.neoform/gat PCR CSF CMV DNA (PCR) CSF Enterovirus (PCR) CSF E. coli K1 (PCR) CSF H. influenzae (PCR) CSF HSV I (PCR) CSF HSV II (PCR) CSF HHV 6 (PCR) CSF L.monocytogenes PCR CSF N. meningitidis PCR CSF Parechovirus (PCR) CSF S. agalactiae (PCR) CSF S. pneumoniae (PCR) CSF VZV (PCR) Influenza Type A (PCR) NEGATIVE Influenza Type B (PCR) NEGATIVE RSV RNA Qual (PCR) NEGATIVE SARS-CoV-2 RNA (RT-PCR) NEGATIVE 06/24/22 06:59 MCV MCH MCHC RDW Plt Count MPV Immature Gran % (Auto) Neut % (Auto) Lymph % (Auto) [place] % (Auto) Eos % (Auto) Baso % (Auto) Lymph # (Auto) [place] # (Auto) Eos # (Auto) Baso # (Auto) Abs Immat Gran (auto) Absolute Neuts (auto) Absolute Nucleated RBC Nucleated RBC % (auto) Anion Gap 15 Estim Creat Clear Calc 149.9 Estimated GFR > 60 Fasting Glucose 138 H Calcium 8.6 D Total Bilirubin 0.7 AST 16 ALT 18 Alkaline Phosphatase 65 Total Protein 6.7 Albumin 3.9 TSH CSF Tube Number CSF Volume CSF Appearance CSF Color CSF WBC CSF RBC CSF Neutrophils CSF Lymphocytes CSF Monocytes % CSF Appearance (b) CSF Glucose CSF Total Protein CSF C.neoform/gat PCR CSF CMV DNA (PCR) CSF Enterovirus (PCR) CSF E. coli K1 (PCR) CSF H. influenzae (PCR) CSF HSV I (PCR) CSF HSV II (PCR) CSF HHV 6 (PCR) CSF L.monocytogenes PCR CSF N. meningitidis PCR CSF Parechovirus (PCR) CSF S. agalactiae (PCR) CSF S. pneumoniae (PCR) CSF VZV (PCR) Influenza Type A (PCR) Influenza Type B (PCR) RSV RNA Qual (PCR) SARS-CoV-2 RNA (RT-PCR) Microbiology Microbiology Results: Microbiology 06/23/22 16:00 Gram Stain - Final Cerebrospinal Fluid CSF Examination - Final Fluid Description - Final CSF Culture - Preliminary No growth to date. 06/23/22 08:00 Blood Culture - Preliminary Blood - Venous No growth after 24 hours. 06/23/22 07:46 Blood Culture - Preliminary Blood - Venous No growth after 24 hours. Assessment and Plan (1) Encephalopathy acute: Status: Acute Plan 37-year-old female with essentially no acute past medical history awakes at 01:00 this morning with vomiting and altered mental status. In the emergency room, she had a fever of 101.8 however workup was essentially unremarkable at this time. Viral panel is pending 1. Acute encephalopathy -empiric acyclovir/vancomycin/ceftriaxone. .. Await cultures -ID/Neuro consult reviewed -maintenance IV fluids -serial labs 2.HTN -continue lisinopril in a.m. -adjust as indicated Full code Lovenox Patient will need ongoing hospitalization for empiric IV antibiotics/antiviral pending cultures for encephalitis Quality Stroke Does the patient have a stroke diagnosis?: No VTE Prior VTE?: No VTE Risk Level:: Medical - moderate - high VTE Device Contraindication: Treatment Not Indicated VTE Drug Contraindication: N/A - Med Ordered
[2022-06-24 15:55] VITALS: BP 135/67; PULSE 84; RESP 18; TEMP 37.6; O2SAT 96
[2022-06-24 19:32] VITALS: TEMP 35.8
[2022-06-24 21:26] LABS: Vancomycin Random < 3.0 mcg/mL (15-20)
[2022-06-24] MEDS: cefTRIAXone sodium 2 GM in 0.9 % Sodium Chloride 50 ML IV (21:30)
[2022-06-24 23:18] VITALS: BP 165/79; PULSE 98; RESP 20; TEMP 37.8; O2SAT 95
[2022-06-25] MEDS: vancomycin HCL 1,000 MG in 0.9 % Sodium Chloride 250 ML 270 MG IV (01:38)
[2022-06-25 03:59] VITALS: BP 136/62; PULSE 85; RESP 20; TEMP 37.6; O2SAT 98
[2022-06-25 08:00] VITALS: BP 132/77; PULSE 76; RESP 16; TEMP 36.5; O2SAT 97
[2022-06-25 08:25] LABS: MANUAL DIFF FLAG NO
[2022-06-25 08:28] LABS: Basophils Percent Auto 0.2 % (0-2); Hematocrit 37.3 % (37.0-47.0); Hemoglobin 13.9 g/dl (12.0-16.0); Imm Gran Abs Auto 0.07 X10*3/uL (0.00-0.03); Imm Gran Pct Auto 0.6 % (0.0-0.4); Lymphocytes Absolute Auto 2.2 X10*3/uL (1.2-4.9); Lymphocytes Percent Auto 18.3 % (20-40); Mean Corpuscular HGB Conc 37.3 g/dl (31.0-35.0); Mean Corpuscular Hemoglobin 31.9 pg (27.0-33.0); Mean Corpuscular Volume 85.6 fL (80.0-98.0); Mean Platelet Volume 10.6 fL (9.4-12.3); Monocytes Absolute Auto 1.2 X10*3/uL (0.1-1.2); Monocytes Percent Auto 9.9 % (2-11); Neutrophils Absolute Auto 8.6 x10*3/uL (2.0-8.3); Platelet Count 251 X10*3/uL (160-400); Red Blood Count 4.36 X10*6/uL (4.20-5.50); Red Cell Distribution Width 11.5 % (11.0-16.0); White Blood Count 12.1 X10*3/uL (4.8-10.8)
[2022-06-25 08:46] LABS: Alanine Aminotransferase 19 U/L (0-31); Albumin Level 3.9 g/dL (3.5-5.0); Alkaline Phosphatase 65 U/L (39-117); Anion Gap 15 (12-20); Aspartate Amino Transferase 18 U/L (5-31); Bilirubin Total 0.7 mg/dL (0.0-1.0); Blood Urea Nitrogen 10 mg/dL (9-16); Calcium 8.6 mg/dL (8.4-10.2); Carbon Dioxide 20 mmol/L (22-29); Chloride 103 mmol/L (96-108); Creatinine Clr Calc Pharmacy 159.2; Estimated Glomerular Filt Rate > 60; Glucose Fasting 125 mg/dL (60-99); Potassium 3.4 mmol/L (3.3-5.1); Sodium 135 mmol/L (135-145); Total Protein 6.7 g/dL (6.5-8.0)
[2022-06-25] MEDS: 0.9 % Sodium Chloride Flush 3 ML SYRINGE IVFLUSH ×3 (08:52→20:03)
--- NOTE | 2022-06-25 11:07 | P.PNIM_ITS ---
Subjective Subjective Date of Service: 06/25/22 Interval History: cc: aphasia interval history:still aphasic Cardiovascular Cardiovascular: Reports no additional cardiovascular complaints Respiratory Respiratory: Reports no additional respiratory complaints Physical Exam Vital Signs: Vital Signs: Last Vital Signs Temp 97.7 F 06/25/22 08:00 Pulse 76 06/25/22 08:00 Resp 16 06/25/22 08:00 BP 132/77 06/25/22 08:00 Pulse Ox 97 06/25/22 08:00 O2 Del Method 06/25/22 08:00 O2 Flow Rate 2 06/23/22 18:17 BMI result Body Mass Index 47.5 General: Alert, aphasic, follows commands Resp: CTA bilateral, no accessory muscles used CVS: S1,S2,RRR GI: soft, non tender, non distended Neuro: aphasia, motor intact Psych: flat affect Objective Data Active Medications Acetaminophen (Acetaminophen 325 Mg Tablet) 650 mg PO Q6H PRN PRN Reason: Pain, Mild (Pain Scale 1-3) Last Admin: 06/24/22 10:36 Dose: 650 mg Documented By: KALEY Enoxaparin Sodium (Enoxaparin Sodium 40 Mg/0.4 Ml Syringe) 40 mg SUBCUT Q24H [facility] Last Admin: 06/24/22 17:53 Dose: Not Given Documented By: KALEY Non-Admin Reason: Patient Refused Dextrose/Sodium Chloride (D51/2ns) 1,000 mls @ 100 mls/hr IVCONT .Q10H [facility] Last Admin: 06/25/22 09:41 Dose: Not Given Documented By: KALEY Non-Admin Reason: No Access Acyclovir Sodium 570 mg/ (Dextrose) 111.4 mls @ 110 mls/hr IV Q8H [facility] Last Admin: 06/25/22 09:15 Dose: Not Given Documented By: KALEY Non-Admin Reason: No Access Lisinopril (Lisinopril 10 Mg Tablet) 10 mg PO DAILY [facility]; Protocol Last Admin: 06/25/22 08:57 Dose: Not Given Documented By: KALEY Non-Admin Reason: Patient Condition Contraindication Midazolam HCl (Midazolam Hcl/Pf 2 Mg/2 Ml Vial) 2 mg IVPUSH ONCE PRN PRN Reason: mri Ondansetron HCl (Ondansetron Hcl 4 Mg/2 Ml Vial) 4 mg IVPUSH Q8H PRN PRN Reason: Nausea and Vomiting Pharmacy Consult (Consult Rx Vancomycin Dosing) 1 each MISCELLANE DAILY PRN PRN Reason: Consult order Sodium Chloride (0.9 % Sodium Chloride Flush 3 Ml Syringe) 3 ml IVFLUSH QSHIFT [facility] Last Admin: 06/25/22 08:52 Dose: 3 ml Documented By: KALEY Labs CBC & Chem 7: 06/25/22 08:21 06/25/22 08:21 Labs: Laboratory Results - last 24 hr 06/24/22 06/25/22 06/25/22 20:53 08:21 08:21 MCV 85.6 MCH 31.9 MCHC 37.3 H RDW 11.5 Plt Count 251 MPV 10.6 Immature Gran % (Auto) 0.6 H Neut % (Auto) 71.0 Lymph % (Auto) 18.3 L [place] % (Auto) 9.9 Eos % (Auto) 0.0 Baso % (Auto) 0.2 Lymph # (Auto) 2.2 [place] # (Auto) 1.2 Eos # (Auto) 0.0 Baso # (Auto) 0.0 Abs Immat Gran (auto) 0.07 H Absolute Neuts (auto) 8.6 H Absolute Nucleated RBC 0.000 Nucleated RBC % (auto) 0.0 Anion Gap 15 Estim Creat Clear Calc 159.2 Estimated GFR > 60 Fasting Glucose 125 H Calcium 8.6 Total Bilirubin 0.7 AST 18 ALT 19 Alkaline Phosphatase 65 Total Protein 6.7 Albumin 3.9 Random Vancomycin < 3.0 L Microbiology Microbiology Results: Microbiology 06/23/22 08:00 Blood Culture - Preliminary Blood - Venous No growth after 48 hours. 06/23/22 07:46 Blood Culture - Preliminary Blood - Venous No growth after 48 hours. 06/23/22 16:00 Gram Stain - Final Cerebrospinal Fluid CSF Examination - Final Fluid Description - Final CSF Culture - Preliminary No growth after 1 day Assessment and Plan (1) Encephalopathy acute: Status: Acute Plan 37-year-old female PMH IVDA, depression, morbid obesity, HTN presented with SIRS, ams, and aphasia SIRS with acute metabolic encephalopathy and aphasia concern for encephalitis LP with neutrophils, negative RBC, normal glucose and protein culture negative will dc antibiotics follow up MRI neuro following HTN -continue lisinopril morbid obesity weight loss depression amitryptilline history of IV opiate dependence ?remote Full code Lovenox Patient will need ongoing hospitalization for empiric IV antibiotics/antiviral pending cultures for encephalitis Quality Stroke Does the patient have a stroke diagnosis?: No VTE Prior VTE?: No VTE Risk Level:: Medical - moderate - high VTE Device Contraindication: Treatment Not Indicated VTE Drug Contraindication: N/A - Med Ordered
[2022-06-25 11:54] VITALS: BP 129/68; PULSE 68; RESP 16; TEMP 37.1; O2SAT 98
--- NOTE | 2022-06-25 11:56 | MHC.SL.SWA ---
Risk of Aspiration Due to: Neurological Condition Dysphasia Diet Status: Downgrade liquids Liquid Consistency and Strategies for Safe Swallow: Liquid Intake Recommendation: [place] Thick Liquid Intake Strategies: Small Sips Solid Food Consistency: Pt tolerated puree and ground; unable to further evaluate d/t pt refusal Oral Medication Intake: Whole or crushed with Puree Please contact the pharmacy regarding appropriate crushable or liquid drug formulations that are available whenever modified delivery is recommended. Compensatory Strategies and Precautions to be Taken for Safe Swallow: Sitting Upright (90 deg) No Straw Small Bites and Sips Rate of Ingestion Change Supervision While Eating and Drinking for Safe Swallow: Total Supervision (1:1) Recommendation for Speech: Further Testing Needed Outpatient Speech Therapy Inpatient Speech Therapy Comment: Pt seen for bedside swallow eval & cog screening this morning. Oral motor exam - not able to perform/follow most tasks. Reduced lingual ROM & speed, reduced strength upon protrusion, unable to move laterally. Cognitive screening - unable to repeat words, unable to answer any questions including orientation questions, did follow about 50% of commands including close/open eyes and touch ear. 5-10 second delay with command to touch ear. Only vocalizations was pt moaning. PO trials - Pt tolerated ice chips with no s/s of aspiration. Pt presented with wet breathing when given teaspoon of water 2X. Pt tolerated full cup of nectar thick liquid with no s/s of aspiration. Pt tolerated pureed & ground consistencies unable to assess further d/t pt refusal. At this time, recommend [place] THICK liquids. pills WHOLE or CRUSHED in PUREE. Recommend pt be seen for dysphagia and speech tx during inpatient stay and at next level of care. SIGHTER continue to follow. [employer] Clinican/Clinical Fellow: Yes: Charissa Gonzales M.A., CF-SIGHTER Supervisory Statement: I have reviewed and agree with the student/clinical fellow's documentation: Speech Language Pathologist:
--- NOTE | 2022-06-25 14:51 | PM.NEUROCN ---
History of Present Illness Data of Consult Service Date: 06/25/22 Primary Care Provider: Unknown Physician HPI Reason for consult: Encephalopathy 37 years old woman with history of drug abuse came to hospital with fever and change in mental status. She was being treated for encephalitis though no particular organism was detected. I saw her for follow-up. Review of Systems Review of Systems: She could not answer questions PMFSH Social History Social History Household Members: Unknown / Unable to assess Housing: Unknown / Unable to assess Unable to assess alcohol history related to: Unknown and Refusing to respond Patient Tobacco Use Status: Tobacco use Unknown Use of substances other than those prescribed or required for medical reasons: Refusing to respond Currently Displaying Signs/Symptoms of Drug Intoxication Withdrawal: No Advance Directives: No Advance Directives Information Provided: No Nutrition Risks: No Nutritional Risk Patient : No : No Poor oral hygiene: No service: No Current occupational status: employed Meds Allergies Allergy/AdvReac Type Severity Reaction Status Date / Time codeine [CODEINE] Allergy Intermediate HIVES Unverified 05/15/20 15:27 Active Medications: Current Medications Acetaminophen (Acetaminophen 325 Mg Tablet) 650 mg PO Q6H PRN PRN Reason: Pain, Mild (Pain Scale 1-3) Last Admin: 06/24/22 10:36 Dose: 650 mg Amitriptyline HCl (Amitriptyline Hcl 50 Mg Tablet) 100 mg PO BEDTIME [facility] Enoxaparin Sodium (Enoxaparin Sodium 40 Mg/0.4 Ml Syringe) 40 mg SUBCUT Q24H [facility] Last Admin: 06/24/22 17:53 Dose: Not Given Dextrose/Sodium Chloride (D51/2ns) 1,000 mls @ 100 mls/hr IVCONT .Q10H [facility] Last Admin: 06/25/22 09:41 Dose: Not Given Lisinopril (Lisinopril 10 Mg Tablet) 10 mg PO DAILY [facility]; Protocol Last Admin: 06/25/22 08:57 Dose: Not Given Midazolam HCl (Midazolam Hcl/Pf 2 Mg/2 Ml Vial) 2 mg IVPUSH ONCE PRN PRN Reason: mri Ondansetron HCl (Ondansetron Hcl 4 Mg/2 Ml Vial) 4 mg IVPUSH Q8H PRN PRN Reason: Nausea and Vomiting Pharmacy Consult (Consult Rx Vancomycin Dosing) 1 each MISCELLANE DAILY PRN PRN Reason: Consult order Sodium Chloride (0.9 % Sodium Chloride Flush 3 Ml Syringe) 3 ml IVFLUSH QSHIFT [facility] Last Admin: 06/25/22 08:52 Dose: 3 ml Home Medications Medication Instructions Recorded Confirmed Last Taken Type amitriptyline 100 mg tablet 1 tab PO BEDTIME 06/23/22 06/23/22 Unknown History hydroxyzine HCl 50 mg tablet 1 tab PO TID PRN anxiety 06/23/22 06/23/22 Unknown History ibuprofen 800 mg tablet 1 tab PO Q8H PRN pain 06/23/22 06/23/22 Unknown History lisinopril 10 mg tablet 1 tab PO DAILY 06/23/22 06/23/22 Unknown History tizanidine 4 mg tablet 1 tab PO Q6H PRN muscle spasm 06/23/22 06/23/22 Unknown History tramadol 50 mg tablet 1 tab PO Q6H PRN pain 06/23/22 06/23/22 Unknown History Physical Exam Vital Signs: Vital Signs: Last Vital Signs Temp 98.7 F 06/25/22 11:54 Pulse 68 06/25/22 11:54 Resp 16 06/25/22 11:54 BP 129/68 06/25/22 11:54 Pulse Ox 98 06/25/22 11:54 O2 Del Method 06/25/22 11:54 O2 Flow Rate 2 06/23/22 18:17 BMI result Body Mass Index 47.5 Neuro: Other: Unlike yesterday, she was alert and awake anxious apprehensive with not able to say any meaningful word. She was not able to comprehend. When asked to repeat 123, she kept on saying to. She was unable to name a straw. There was mild right-sided facial flatness and mild right hemiparesis with right extensor plantar. Results Labs CBC & Chem 7: 06/25/22 08:21 06/25/22 08:21 Labs: Short CBC 06/25/22 Range/Units 08:21 WBC 12.1 H (4.8-10.8) X10*3/uL Hgb 13.9 (12.0-16.0) g/dl Hct 37.3 (37.0-47.0) % Plt Count 251 (160-400) X10*3/uL BMP 06/25/22 08:21 Sodium 135 Potassium 3.4 Chloride 103 Carbon Dioxide 20 L BUN 10 Creatinine 0.65 Calcium 8.6 Liver Function 06/25/22 Range/Units 08:21 Total Bilirubin 0.7 (0.0-1.0) mg/dL AST 18 (5-31) U/L ALT 19 (0-31) U/L Alkaline Phosphatase 65 (39-117) U/L Albumin 3.9 (3.5-5.0) g/dL Microbiology Microbiology Results: Microbiology 06/23/22 08:00 Blood - Venous Blood Culture - Preliminary No growth after 48 hours. 06/23/22 07:46 Blood - Venous Blood Culture - Preliminary No growth after 48 hours. 06/23/22 16:00 Cerebrospinal Fluid Gram Stain - Final 06/23/22 16:00 Cerebrospinal Fluid CSF Examination - Final 06/23/22 16:00 Cerebrospinal Fluid Fluid Description - Final 06/23/22 16:00 Cerebrospinal Fluid CSF Culture - Preliminary No growth after 1 day Assessment and Plan (1) Global aphasia: Status: Acute 37 years old woman who initially presented to hospital with fever and change in mental status has global aphasia and right hemiparesis. Its etiology is unclear. Though she was treated for viral and bacterial infection, no particular organism has been detected. My recommendation at this time is to obtain an MRI of brain with and without contrast or at least without contrast to see if we could define it further. The might be a role for steroid treatment but I would make that decision once MRI is done. (2) Right hemiparesis: Status: Acute Procedures Date of Service Date of Service: 06/25/22
[2022-06-25] MEDS: Midazolam HCl/PF 2 MG/2 ML VIAL IVPUSH ×2 (15:38→15:52)
[2022-06-25 16:00] VITALS: BP 152/72; PULSE 71; RESP 18; TEMP 36.6; O2SAT 99
--- NOTE | 2022-06-25 16:32 | PC.NURSE ---
While in MRI, pt was unable to remain calm and still in order to complete the diagnostic. An order for versed 2mg IV was provided. Pt was medicated with versed per the MAR. She was subsequently able to participate enough for the MRI to be mostly completed, per the MRI staff. She was transported back to room 486 at approximately 1620.
--- NOTE | 2022-06-25 16:56 | PC.NURSE ---
Pt has been refusing telemetry for both shifts on 06/24 and 06/25. Awaiting reply from .
[2022-06-25] MEDS: levETIRAcetam in NaCl (iso-os) 1,500 MG/100 ML PIGGYBACK 400 MG IV (17:44)
[2022-06-25 18:17] LABS: Lyme (B. burgdorferi) PCR NOT DETECTED (NOT DETECTED); Lyme PCR Source NOT GIVEN
[2022-06-25 20:00] VITALS: BP 152/72; PULSE 71; RESP 18; TEMP 38; O2SAT 99
[2022-06-25] MEDS: Amitriptyline HCl 50 MG TABLET 100 MG PO (20:01)
[2022-06-25 23:53] VITALS: BP 172/80; PULSE 100; RESP 19; TEMP 37.4; O2SAT 98
[2022-06-26] VITALS (7 sets, daily range): BP systolic 131–168; BP diastolic 70–79; PULSE 73–98; RESP 16–19; TEMP 36.7–38.3; O2SAT 96–99
[2022-06-26 07:24] LABS: MANUAL DIFF FLAG NO
[2022-06-26 07:34] LABS: Basophils Percent Auto 0.3 % (0-2); Eosinophils Percent Auto 0.1 % (0-4); Hematocrit 38.9 % (37.0-47.0); Hemoglobin 14.1 g/dl (12.0-16.0); Imm Gran Abs Auto 0.06 X10*3/uL (0.00-0.03); Imm Gran Pct Auto 0.5 % (0.0-0.4); Lymphocytes Percent Auto 17.7 % (20-40); Mean Corpuscular HGB Conc 36.2 g/dl (31.0-35.0); Mean Corpuscular Hemoglobin 31.3 pg (27.0-33.0); Mean Corpuscular Volume 86.4 fL (80.0-98.0); Mean Platelet Volume 10.8 fL (9.4-12.3); Monocytes Absolute Auto 1.2 X10*3/uL (0.1-1.2); Monocytes Percent Auto 10.5 % (2-11); Neutrophils Absolute Auto 8.1 x10*3/uL (2.0-8.3); Neutrophils Percent Auto 70.9 % (45-73); Platelet Count 265 X10*3/uL (160-400); Red Cell Distribution Width 11.5 % (11.0-16.0); White Blood Count 11.4 X10*3/uL (4.8-10.8)
[2022-06-26 07:49] LABS: Alanine Aminotransferase 23 U/L (0-31); Albumin Level 3.8 g/dL (3.5-5.0); Alkaline Phosphatase 62 U/L (39-117); Anion Gap 16 (12-20); Aspartate Amino Transferase 19 U/L (5-31); Bilirubin Total 0.6 mg/dL (0.0-1.0); Blood Urea Nitrogen 13 mg/dL (9-16); Calcium 8.6 mg/dL (8.4-10.2); Carbon Dioxide 21 mmol/L (22-29); Chloride 100 mmol/L (96-108); Creatinine Clr Calc Pharmacy 149.9; Estimated Glomerular Filt Rate > 60; Glucose Fasting 116 mg/dL (60-99); Potassium 3.3 mmol/L (3.3-5.1); Sodium 134 mmol/L (135-145); Total Protein 6.5 g/dL (6.5-8.0)
[2022-06-26] MEDS: Acetaminophen 325 MG TABLET 650 MG PO (07:55)
[2022-06-26] MEDS: lisinopriL 10 MG TABLET PO (07:55)
[2022-06-26] MEDS: 0.9 % Sodium Chloride Flush 3 ML SYRINGE IVFLUSH ×2 (07:56→18:19)
--- NOTE | 2022-06-26 09:45 | HO.PM.IMPN ---
Subjective Subjective Date of Service: 06/26/22 Interval History: cc: aphasia interval history:still aphasic Cardiovascular Cardiovascular: Reports no additional cardiovascular complaints Respiratory Respiratory: Reports no additional respiratory complaints Physical Exam Vital Signs: Vital Signs: Last Vital Signs Temp 100.9 F H 06/26/22 07:29 Pulse 85 06/26/22 07:29 Resp 16 06/26/22 07:29 BP 148/76 H 06/26/22 07:29 Pulse Ox 98 06/26/22 07:29 O2 Del Method 06/26/22 07:29 O2 Flow Rate 2 06/23/22 18:17 BMI result Body Mass Index 47.5 General: Alert, aphasic, follows commands Resp: CTA bilateral, no accessory muscles used CVS: S1,S2,RRR GI: soft, non tender, non distended Neuro: aphasia, ?rue weakness Psych: flat affect Objective Data Active Medications Acetaminophen (Acetaminophen 325 Mg Tablet) 650 mg PO Q6H PRN PRN Reason: Pain, Mild (Pain Scale 1-3) Last Admin: 06/26/22 07:55 Dose: 650 mg Documented By: VAISHNAVI Amitriptyline HCl (Amitriptyline Hcl 50 Mg Tablet) 100 mg PO BEDTIME [facility] Last Admin: 06/25/22 20:01 Dose: 100 mg Documented By: TU Enoxaparin Sodium (Enoxaparin Sodium 40 Mg/0.4 Ml Syringe) 40 mg SUBCUT Q24H [facility] Last Admin: 06/25/22 19:51 Dose: Not Given Documented By: TU Non-Admin Reason: Patient Refused Lisinopril (Lisinopril 10 Mg Tablet) 10 mg PO DAILY [facility]; Protocol Last Admin: 06/26/22 07:55 Dose: 10 mg Documented By: VAISHNAVI Midazolam HCl (Midazolam Hcl/Pf 2 Mg/2 Ml Vial) 2 mg IVPUSH ONCE PRN PRN Reason: mri Last Admin: 06/25/22 15:52 Dose: 2 mg Documented By: TOBY Ondansetron HCl (Ondansetron Hcl 4 Mg/2 Ml Vial) 4 mg IVPUSH Q8H PRN PRN Reason: Nausea and Vomiting Pharmacy Consult (Consult Rx Vancomycin Dosing) 1 each MISCELLANE DAILY PRN PRN Reason: Consult order Sodium Chloride (0.9 % Sodium Chloride Flush 3 Ml Syringe) 3 ml IVFLUSH QSHIFT [facility] Last Admin: 06/26/22 07:56 Dose: 3 ml Documented By: VAISHNAVI Labs CBC & Chem 7: 06/26/22 06:18 06/26/22 06:18 Labs: Laboratory Results - last 24 hr 06/23/22 06/26/22 06/26/22 16:00 06:18 06:18 MCV Cancelled MCH Cancelled MCHC Cancelled RDW Cancelled Plt Count Cancelled MPV Cancelled Immature Gran % (Auto) Neut % (Auto) Lymph % (Auto) [place] % (Auto) Eos % (Auto) Baso % (Auto) Lymph # (Auto) [place] # (Auto) Eos # (Auto) Baso # (Auto) Abs Immat Gran (auto) Absolute Neuts (auto) Absolute Nucleated RBC Cancelled Nucleated RBC % (auto) Cancelled Anion Gap 16 Estim Creat Clear Calc 149.9 Estimated GFR > 60 Fasting Glucose 116 H Calcium 8.6 Total Bilirubin 0.6 AST 19 ALT 23 Alkaline Phosphatase 62 Total Protein 6.5 Albumin 3.8 Fld Lyme DNA (PCR) NOT GIVEN Lyme Disease DNA (PCR) NOT DETECTED 06/26/22 06:18 MCV 86.4 MCH 31.3 MCHC 36.2 H RDW 11.5 Plt Count 265 MPV 10.8 Immature Gran % (Auto) 0.5 H Neut % (Auto) 70.9 Lymph % (Auto) 17.7 L [place] % (Auto) 10.5 Eos % (Auto) 0.1 Baso % (Auto) 0.3 Lymph # (Auto) 2.0 [place] # (Auto) 1.2 Eos # (Auto) 0.0 Baso # (Auto) 0.0 Abs Immat Gran (auto) 0.06 H Absolute Neuts (auto) 8.1 Absolute Nucleated RBC 0.000 Nucleated RBC % (auto) 0.0 Anion Gap Estim Creat Clear Calc Estimated GFR Fasting Glucose Calcium Total Bilirubin AST ALT Alkaline Phosphatase Total Protein Albumin Fld Lyme DNA (PCR) Lyme Disease DNA (PCR) Microbiology Microbiology Results: Microbiology 06/23/22 16:00 Gram Stain - Final Cerebrospinal Fluid CSF Examination - Final Fluid Description - Final CSF Culture - Preliminary No growth after 2 days 06/23/22 08:00 Blood Culture - Preliminary Blood - Venous No growth after 48 hours. 06/23/22 07:46 Blood Culture - Preliminary Blood - Venous No growth after 48 hours. 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 neuro following keppra given HTN -continue lisinopril morbid obesity weight loss depression amitryptilline history of IV opiate dependence ?remote Full code Lovenox reason for continued hospitalization: aphasia Quality Stroke Does the patient have a stroke diagnosis?: No VTE Prior VTE?: No VTE Risk Level:: Medical - moderate - high VTE Device Contraindication: Treatment Not Indicated VTE Drug Contraindication: N/A - Med Ordered
--- NOTE | 2022-06-26 10:50 | P.CNNE_ITS ---
History of Present Illness Data of Consult Service Date: 06/26/22 Primary Care Provider: Unknown Physician HPI Reason for consult: Encephalitis 37 years old woman with global aphasia and mild right hemiparesis. She had the MRI though that was some but incomplete because of difficulty related to her confusion and moving. She was noted to be febrile again. Review of Systems Review of Systems: Could not be done with [facility] Social History Social History Household Members: Unknown / Unable to assess Housing: Unknown / Unable to assess Unable to assess alcohol history related to: Unknown and Refusing to respond Patient Tobacco Use Status: Tobacco use Unknown Use of substances other than those prescribed or required for medical reasons: Refusing to respond Currently Displaying Signs/Symptoms of Drug Intoxication Withdrawal: No Advance Directives: No Advance Directives Information Provided: No Nutrition Risks: No Nutritional Risk Patient : No : No Poor oral hygiene: No service: No Current occupational status: employed Meds Allergies Allergy/AdvReac Type Severity Reaction Status Date / Time codeine [CODEINE] Allergy Intermediate HIVES Unverified 05/15/20 15:27 Active Medications: Current Medications Acetaminophen (Acetaminophen 325 Mg Tablet) 650 mg PO Q6H PRN PRN Reason: Pain, Mild (Pain Scale 1-3) Last Admin: 06/26/22 07:55 Dose: 650 mg Amitriptyline HCl (Amitriptyline Hcl 50 Mg Tablet) 100 mg PO BEDTIME [facility] Last Admin: 06/25/22 20:01 Dose: 100 mg Enoxaparin Sodium (Enoxaparin Sodium 40 Mg/0.4 Ml Syringe) 40 mg SUBCUT Q24H [facility] Last Admin: 06/25/22 19:51 Dose: Not Given Acyclovir Sodium 859.6 mg/ (Sodium Chloride) 267.192 mls @ 267.192 mls/hr IV Q8H [facility] Levetiracetam 750 mg/ Sodium (Chloride) 107.5 mls @ 430 mls/hr IV Q12H [facility] Lisinopril (Lisinopril 10 Mg Tablet) 10 mg PO DAILY [facility]; Protocol Last Admin: 06/26/22 07:55 Dose: 10 mg Midazolam HCl (Midazolam Hcl/Pf 2 Mg/2 Ml Vial) 2 mg IVPUSH ONCE PRN PRN Reason: mri Last Admin: 06/25/22 15:52 Dose: 2 mg Ondansetron HCl (Ondansetron Hcl 4 Mg/2 Ml Vial) 4 mg IVPUSH Q8H PRN PRN Reason: Nausea and Vomiting Pharmacy Consult (Consult Rx Vancomycin Dosing) 1 each MISCELLANE DAILY PRN PRN Reason: Consult order Sodium Chloride (0.9 % Sodium Chloride Flush 3 Ml Syringe) 3 ml IVFLUSH [facility] Last Admin: 06/26/22 07:56 Dose: 3 ml Home Medications Medication Instructions Recorded Confirmed Last Taken Type amitriptyline 100 mg tablet 1 tab PO BEDTIME 06/23/22 06/23/22 Unknown History hydroxyzine HCl 50 mg tablet 1 tab PO TID PRN anxiety 06/23/22 06/23/22 Unknown History ibuprofen 800 mg tablet 1 tab PO Q8H PRN pain 06/23/22 06/23/22 Unknown History lisinopril 10 mg tablet 1 tab PO DAILY 06/23/22 06/23/22 Unknown History tizanidine 4 mg tablet 1 tab PO Q6H PRN muscle spasm 06/23/22 06/23/22 Unknown History tramadol 50 mg tablet 1 tab PO Q6H PRN pain 06/23/22 06/23/22 Unknown History Physical Exam Vital Signs: Vital Signs: Last Vital Signs Temp 100.9 F H 06/26/22 07:29 Pulse 85 06/26/22 07:29 Resp 16 06/26/22 07:29 BP 148/76 H 06/26/22 07:29 Pulse Ox 98 06/26/22 07:29 O2 Del Method 06/26/22 07:29 O2 Flow Rate 2 06/23/22 18:17 BMI result Body Mass Index 47.5 Neuro: Other: She is alert and awake anxious depressed tearful but not communicating and understanding. Mild right hemiparesis still noted. Results Labs CBC & Chem 7: 06/26/22 06:18 06/26/22 06:18 Labs: Short CBC 06/26/22 06/26/22 Range/Units 06:18 06:18 WBC Cancelled 11.4 H Hgb Cancelled 14.1 Hct Cancelled 38.9 Plt Count Cancelled 265 BMP 06/26/22 06:18 Sodium 134 L Potassium 3.3 Chloride 100 Carbon Dioxide 21 L BUN 13 Creatinine 0.69 Calcium 8.6 Liver Function 06/26/22 Range/Units 06:18 Total Bilirubin 0.6 (0.0-1.0) mg/dL AST 19 (5-31) U/L ALT 23 (0-31) U/L Alkaline Phosphatase 62 (39-117) U/L Albumin 3.8 (3.5-5.0) g/dL MRI of brain without contrast sequences were reviewed. There was no obvious acute lesion. 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 There was no abnormal signal. Ventricular system was intact. There was no sign of hydrocephalus. Microbiology Microbiology Results: Microbiology 06/23/22 16:00 Cerebrospinal Fluid Gram Stain - Final 06/23/22 16:00 Cerebrospinal Fluid CSF Examination - Final 06/23/22 16:00 Cerebrospinal Fluid Fluid Description - Final 06/23/22 16:00 Cerebrospinal Fluid CSF Culture - Preliminary No growth after 2 days 06/23/22 08:00 Blood - Venous Blood Culture - Preliminary No growth after 48 hours. 06/23/22 07:46 Blood - Venous Blood Culture - Preliminary No growth after 48 hours. Assessment and Plan (1) Encephalitis: Status: Acute Overall clinical picture is suggestive of encephalitis, probably viral. In this category despite her negative serology, herpes encephalitis was a consideration last night I have given her a dose of levetiracetam as clinically speaking her aphasia could be nonepileptic partial status epilepticus. Unfortunately we were not able to get an EEG over the weekend. I would suggest making a call to [facility] Neuro ICU to see if there was an empty bed than if they could take her as EEG monitoring could be critical to manage her. If that was not an option, my recommendation would be to continue levetiracetam 750 mg twice a day for now and obtain an EEG as soon as possible. Also I would recommend restarting acyclovir full does based upon her kg weight and finish the course. Depending upon clinical response, and depending rest of the laboratories including pending HIV test, a lumbar puncture can be repeated to look for other rare viral etiologies patients with aphasia typically can not get severe depression and my recommendation is to start her on an SSRI like sertraline as it would take some time to be clinically useful. Procedures Date of Service Date of Service: 06/26/22
[2022-06-26] MEDS: levETIRAcetam 750 MG in 0.9 % Sodium Chloride 100 ML 430 MG IV (12:12)
[2022-06-26] MEDS: ACYCLOVIR SODIUM IV (14:01)
[2022-06-26] MEDS: SODIUM CHLORIDE 0.9% IV (14:01)
[2022-06-26] MEDS: Enoxaparin Sodium 40 MG/0.4 ML SYRINGE SUBCUT (18:18)
--- NOTE | 2022-06-26 23:31 | P.CNID_ITS ---
History of Present Illness Data of Consult Service Date: 06/25/22 Requesting physician: Raheel Reyes Primary Care Provider: Unknown Physician HPI Reason for consult: confusion,aphasia She presents with confusion and aphasia for a day.] She has no meningitis. She had temperature to 100.9 Review of Systems Review of Systems: Yes all other systems are reviewed and are negative [facility] Family History Family history: reviewed and not pertinent Social History Social History Household Members: Unknown / Unable to assess Housing: Unknown / Unable to assess Unable to assess alcohol history related to: Unknown and Refusing to respond Patient Tobacco Use Status: Tobacco use Unknown Use of substances other than those prescribed or required for medical reasons: Refusing to respond Currently Displaying Signs/Symptoms of Drug Intoxication Withdrawal: No Advance Directives: No Advance Directives Information Provided: No Nutrition Risks: No Nutritional Risk Patient : No : No Poor oral hygiene: No service: No Current occupational status: employed Meds Allergies Allergy/AdvReac Type Severity Reaction Status Date / Time codeine [CODEINE] Allergy Intermediate HIVES Unverified 05/15/20 15:27 Active Medications: Current Medications Acetaminophen (Acetaminophen 325 Mg Tablet) 650 mg PO Q6H PRN PRN Reason: Pain, Mild (Pain Scale 1-3) Last Admin: 06/26/22 07:55 Dose: 650 mg Amitriptyline HCl (Amitriptyline Hcl 50 Mg Tablet) 100 mg PO BEDTIME [facility] Last Admin: 06/25/22 20:01 Dose: 100 mg Enoxaparin Sodium (Enoxaparin Sodium 40 Mg/0.4 Ml Syringe) 40 mg SUBCUT Q24H [facility] Last Admin: 06/26/22 18:18 Dose: 40 mg Acyclovir Sodium 570 mg/ (Sodium Chloride) 110 mls @ 110 mls/hr IV Q8H [facility] Last Infusion: 06/26/22 15:04 Dose: Infused Levetiracetam 750 mg/ Sodium (Chloride) 107.5 mls @ 430 mls/hr IV Q12H [facility] Last Infusion: 06/26/22 12:28 Dose: Infused Lisinopril (Lisinopril 10 Mg Tablet) 10 mg PO DAILY [facility]; Protocol Last Admin: 06/26/22 07:55 Dose: 10 mg Midazolam HCl (Midazolam Hcl/Pf 2 Mg/2 Ml Vial) 2 mg IVPUSH ONCE PRN PRN Reason: mri Last Admin: 06/25/22 15:52 Dose: 2 mg Ondansetron HCl (Ondansetron Hcl 4 Mg/2 Ml Vial) 4 mg IVPUSH Q8H PRN PRN Reason: Nausea and Vomiting Pharmacy Consult (Consult Rx Vancomycin Dosing) 1 each MISCELLANE DAILY PRN PRN Reason: Consult order Sodium Chloride (0.9 % Sodium Chloride Flush 3 Ml Syringe) [facility] Last Admin: 06/26/22 18:19 Dose: 3 ml Home Medications Medication Instructions Recorded Confirmed Last Taken Type amitriptyline 100 mg tablet 1 tab PO BEDTIME 06/23/22 06/23/22 Unknown History hydroxyzine HCl 50 mg tablet 1 tab PO TID PRN anxiety 06/23/22 06/23/22 Unknown History ibuprofen 800 mg tablet 1 tab PO Q8H PRN pain 06/23/22 06/23/22 Unknown History lisinopril 10 mg tablet 1 tab PO DAILY 06/23/22 06/23/22 Unknown History tizanidine 4 mg tablet 1 tab PO Q6H PRN muscle spasm 06/23/22 06/23/22 Unknown History tramadol 50 mg tablet 1 tab PO Q6H PRN pain 06/23/22 06/23/22 Unknown History Physical Exam Vital Signs: Vital Signs: Last Vital Signs Temp 98.0 F 06/26/22 23:10 Pulse 73 06/26/22 23:10 Resp 18 06/26/22 23:10 BP 148/73 H 06/26/22 23:10 Pulse Ox 98 06/26/22 23:10 O2 Del Method 06/26/22 23:10 O2 Flow Rate 2 06/23/22 18:17 BMI result Body Mass Index 47.5 Const: General: cooperative HEENT: Head: Yes normal to inspection Face and sinus: Yes normal facial exam Mouth: Normal oral and palatal mucosa present Teeth and gingiva: dentition normal Eyes: General: appearance normal, both eyes and all related structures Pupils: Equal, round and reactive pupils present Resp: Effort & Inspection: normal respiratory effort Cardio: Rate: regular rate Rhythm: regular rhythm GI: Palpation (GI): Soft to palpation and nontender : General: Yes no CVA tenderness Back/Spine/Pelvis: Back: no CVA tenderness Skin: General skin exam: no rashes or lesions noted Neuro: Other: aphasic,moves extremities Cranial nerves: Yes Equal, round and reactive pupils present Extrem: General: Yes normal to inspection Psych: Appearance: grossly normal Results Labs CBC & Chem 7: 06/26/22 06:18 06/26/22 06:18 Labs: Short CBC 06/26/22 06/26/22 Range/Units 06:18 06:18 WBC Cancelled 11.4 H Hgb Cancelled 14.1 Hct Cancelled 38.9 Plt Count Cancelled 265 BMP 06/26/22 06:18 Sodium 134 L Potassium 3.3 Chloride 100 Carbon Dioxide 21 L BUN 13 Creatinine 0.69 Calcium 8.6 Liver Function 06/26/22 Range/Units 06:18 Total Bilirubin 0.6 (0.0-1.0) mg/dL AST 19 (5-31) U/L ALT 23 (0-31) U/L Alkaline Phosphatase 62 (39-117) U/L Albumin 3.8 (3.5-5.0) g/dL Microbiology Microbiology Results: Microbiology 06/23/22 16:00 Cerebrospinal Fluid Gram Stain - Final 06/23/22 16:00 Cerebrospinal Fluid CSF Examination - Final 06/23/22 16:00 Cerebrospinal Fluid Fluid Description - Final 06/23/22 16:00 Cerebrospinal Fluid CSF Culture - Preliminary No growth after 2 days 06/23/22 08:00 Blood - Venous Blood Culture - Preliminary No growth after 48 hours. 06/23/22 07:46 Blood - Venous Blood Culture - Preliminary No growth after 48 hours. Assessment and Plan (1) Encephalitis: Status: Acute She has no signs of bacterial or viral gastroenteritis (2) Right hemiparesis: Status: Acute Plan Stop antiviral. Observe
[2022-06-27] MEDS: 0.9 % Sodium Chloride Flush 3 ML SYRINGE IVFLUSH ×3 (00:16→18:05)
[2022-06-27] MEDS: levETIRAcetam 750 MG in 0.9 % Sodium Chloride 100 ML 430 MG IV ×2 (02:01→12:05)
[2022-06-27 03:00] VITALS: BP 129/81; PULSE 111; RESP 20; TEMP 37.2; O2SAT 97
[2022-06-27 06:59] VITALS: BP 142/80; PULSE 96; RESP 17; TEMP 36.7; O2SAT 97
[2022-06-27 07:23] LABS: Anion Gap 15 (12-20); Blood Urea Nitrogen 11 mg/dL (9-16); Calcium 8.7 mg/dL (8.4-10.2); Carbon Dioxide 22 mmol/L (22-29); Chloride 100 mmol/L (96-108); Creatinine Clr Calc Pharmacy 147.8; Estimated Glomerular Filt Rate > 60; Glucose Fasting 117 mg/dL (60-99); Potassium 3.4 mmol/L (3.3-5.1); Sodium 134 mmol/L (135-145)
[2022-06-27] MEDS: lisinopriL 10 MG TABLET PO (07:58)
--- NOTE | 2022-06-27 08:54 | P.PNIM_ITS ---
Subjective Subjective Date of Service: 06/27/22 Interval History: cc: aphasia interval history:still aphasic Cardiovascular Cardiovascular: Reports no additional cardiovascular complaints Respiratory Respiratory: Reports no additional respiratory complaints Physical Exam Vital Signs: Vital Signs: Last Vital Signs Temp 98.1 F 06/27/22 06:59 Pulse 96 06/27/22 06:59 Resp 17 06/27/22 06:59 BP 142/80 H 06/27/22 06:59 Pulse Ox 97 06/27/22 06:59 O2 Del Method 06/27/22 06:59 O2 Flow Rate 2 06/23/22 18:17 BMI result Body Mass Index 47.5 General: Alert, aphasic, follows commands Resp: CTA bilateral, no accessory muscles used CVS: S1,S2,RRR GI: soft, non tender, non distended Neuro: aphasia, ?rue weakness Psych: flat affect Objective Data Active Medications Acetaminophen (Acetaminophen 325 Mg Tablet) 650 mg PO Q6H PRN PRN Reason: Pain, Mild (Pain Scale 1-3) Last Admin: 06/26/22 07:55 Dose: 650 mg Documented By: VAISHNAVI Amitriptyline HCl (Amitriptyline Hcl 50 Mg Tablet) 100 mg PO BEDTIME [facility] Last Admin: 06/27/22 00:17 Dose: Not Given Documented By: ISHAN Non-Admin Reason: Patient Asleep Enoxaparin Sodium (Enoxaparin Sodium 40 Mg/0.4 Ml Syringe) 40 mg SUBCUT Q24H [facility] Last Admin: 06/26/22 18:18 Dose: 40 mg Documented By: VAISHNAVI Levetiracetam 750 mg/ Sodium (Chloride) 107.5 mls @ 430 mls/hr IV Q12H [facility] Last Infusion: 06/27/22 02:23 Dose: 0 mls/hr Documented By: ISHAN Lisinopril (Lisinopril 10 Mg Tablet) 10 mg PO DAILY [facility]; Protocol Last Admin: 06/27/22 07:58 Dose: 10 mg Documented By: VAISHNAVI Midazolam HCl (Midazolam Hcl/Pf 2 Mg/2 Ml Vial) 2 mg IVPUSH ONCE PRN PRN Reason: mri Last Admin: 06/25/22 15:52 Dose: 2 mg Documented By: TOBY Ondansetron HCl (Ondansetron Hcl 4 Mg/2 Ml Vial) 4 mg IVPUSH Q8H PRN PRN Reason: Nausea and Vomiting Pharmacy Consult (Consult Rx Vancomycin Dosing) 1 each MISCELLANE DAILY PRN PRN Reason: Consult order Sodium Chloride (0.9 % Sodium Chloride Flush 3 Ml Syringe) 3 ml IVFLUSH QSHIFT [facility] Last Admin: 06/27/22 07:58 Dose: 3 ml Documented By: VAISHNAVI Labs CBC & Chem 7: 06/26/22 06:18 06/27/22 06:36 Labs: Laboratory Results - last 24 hr 06/27/22 06:36 Anion Gap 15 Estim Creat Clear Calc 147.8 Estimated GFR > 60 Fasting Glucose 117 H Calcium 8.7 Microbiology Microbiology Results: Microbiology 06/23/22 16:00 Gram Stain - Final Cerebrospinal Fluid CSF Examination - Final Fluid Description - Final CSF Culture - Preliminary No growth after 2 days Assessment and Plan (1) Encephalopathy acute: Status: Acute Plan 37-year-old female PMH IVDA, depression, morbid obesity, HTN presented with SIRS, ams, and aphasia SIRS with acute metabolic encephalopathy and aphasia concern for encephalitis LP with neutrophils, negative RBC, normal glucose and protein culture and pcr panel negative dced antibiotics MRI: 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 mri findings not related to presentation neuro following keppra started follow up EEG, [place] iGM, antinmda antibodies ?repeat LP HTN -continue lisinopril morbid obesity weight loss depression amitryptilline history of IV opiate dependence ?remote Full code Lovenox reason for continued hospitalization: aphasia Quality Stroke Does the patient have a stroke diagnosis?: No VTE Prior VTE?: No VTE Risk Level:: Medical - moderate - high VTE Device Contraindication: Treatment Not Indicated VTE Drug Contraindication: N/A - Med Ordered
[2022-06-27 09:02] LABS: Hemoglobin 14.8 g/dl (12.0-16.0); Mean Corpuscular HGB Conc 36.1 g/dl (31.0-35.0); Mean Corpuscular Hemoglobin 31.4 pg (27.0-33.0); Mean Platelet Volume 10.7 fL (9.4-12.3); Platelet Count 278 X10*3/uL (160-400); Red Blood Count 4.71 X10*6/uL (4.20-5.50); Red Cell Distribution Width 11.7 % (11.0-16.0); White Blood Count 13.4 X10*3/uL (4.8-10.8)
[2022-06-27 11:50] VITALS: BP 138/87; PULSE 85; RESP 16; TEMP 36.9; O2SAT 98
--- NOTE | 2022-06-27 13:27 | PC.NURSE ---
Addendum entered by Rachael Das RN 06/27/22 18:05: pt allowed staff to clean her with father at bedside. new sheets applied to bed. Call ludwig within reach, safety precautions taken. Original Note: report received from overnight RN. administrative coordinator per OCT. Pt resting in bed most of day, resistive to care today. COMPONENT LAB TECH attempted x2 to help get pt clean and freshen up this morning with pt refusing. When asked questions / talking to pt the only response is yes , does not follow commands. Camera in room, call ludwig within reach, hourly rounding and safety precautions taken. Pt unable to communicate pain but no signs of distress noted.
[2022-06-27 16:00] VITALS: BP 132/65; PULSE 95; RESP 18; TEMP 37.8; O2SAT 99
[2022-06-27] MEDS: Enoxaparin Sodium 40 MG/0.4 ML SYRINGE SUBCUT (18:00)
[2022-06-27] MEDS: Acetaminophen 325 MG TABLET 650 MG PO (18:42)
[2022-06-27 20:00] VITALS: BP 148/67; PULSE 92; RESP 18; TEMP 36.2; O2SAT 96
[2022-06-27] MEDS: Amitriptyline HCl 50 MG TABLET 100 MG PO (20:16)
[2022-06-27 23:07] VITALS: BP 123/57; PULSE 80; RESP 18; TEMP 36.7; O2SAT 96
[2022-06-28] MEDS: levETIRAcetam 750 MG in 0.9 % Sodium Chloride 100 ML 430 MG IV ×3 (00:18→23:08)
[2022-06-28] MEDS: 0.9 % Sodium Chloride Flush 3 ML SYRINGE IVFLUSH ×4 (00:19→23:08)
[2022-06-28] MEDS: Acetaminophen 325 MG TABLET 650 MG PO ×3 (02:01→23:08)
[2022-06-28 04:00] VITALS: BP 131/82; PULSE 90; RESP 18; TEMP 37.1; O2SAT 97
[2022-06-28 06:38] LABS: Creatinine Clr Calc Pharmacy 149.9; Estimated Glomerular Filt Rate > 60
[2022-06-28 07:27] VITALS: BP 132/81; PULSE 103; RESP 16; TEMP 36.8; O2SAT 99
[2022-06-28] MEDS: lisinopriL 10 MG TABLET PO (08:48)
[2022-06-28 09:23] LABS: HIV AB/AG Nonreactive (Nonreactive); HIV Num 1 0.11 S/CO (0.00-0.99)
--- NOTE | 2022-06-28 10:15 | HO.PM.IMPN ---
Subjective Subjective Date of Service: 06/28/22 Interval History: cc: aphasia interval history:still aphasic Cardiovascular Cardiovascular: Reports no additional cardiovascular complaints Respiratory Respiratory: Reports no additional respiratory complaints Physical Exam Vital Signs: Vital Signs: Last Vital Signs Temp 98.2 F 06/28/22 07:27 Pulse 103 H 06/28/22 07:27 Resp 16 06/28/22 07:27 BP 132/81 06/28/22 07:27 Pulse Ox 99 06/28/22 07:27 O2 Del Method 06/28/22 07:27 O2 Flow Rate 2 06/23/22 18:17 BMI result Body Mass Index 47.5 General: Alert, aphasic, slight improvement in vocalization, not following commands today Resp: CTA bilateral, no accessory muscles used CVS: S1,S2,RRR GI: soft, non tender, non distended Neuro: aphasia, ?rue weakness Psych: flat affect Objective Data Active Medications Acetaminophen (Acetaminophen 325 Mg Tablet) 650 mg PO Q6H PRN PRN Reason: Pain, Mild (Pain Scale 1-3) Last Admin: 06/28/22 08:48 Dose: 650 mg Documented By: MAX Amitriptyline HCl (Amitriptyline Hcl 50 Mg Tablet) 100 mg PO BEDTIME [facility] Last Admin: 06/27/22 20:16 Dose: 100 mg Documented By: CHIDI Enoxaparin Sodium (Enoxaparin Sodium 40 Mg/0.4 Ml Syringe) 40 mg SUBCUT Q24H [facility] Last Admin: 06/27/22 18:00 Dose: 40 mg Documented By: VAISHNAVI Levetiracetam 750 mg/ Sodium (Chloride) 107.5 mls @ 430 mls/hr IV Q12H [facility] Last Infusion: 06/28/22 01:08 Dose: 0 mls/hr Documented By: CHIDI Lisinopril (Lisinopril 10 Mg Tablet) 10 mg PO DAILY [facility]; Protocol Last Admin: 06/28/22 08:48 Dose: 10 mg Documented By: MAX Midazolam HCl (Midazolam Hcl/Pf 2 Mg/2 Ml Vial) 2 mg IVPUSH ONCE PRN PRN Reason: mri Last Admin: 06/25/22 15:52 Dose: 2 mg Documented By: TOBY Ondansetron HCl (Ondansetron Hcl 4 Mg/2 Ml Vial) 4 mg IVPUSH Q8H PRN PRN Reason: Nausea and Vomiting Pharmacy Consult (Consult Rx Vancomycin Dosing) 1 each MISCELLANE DAILY PRN PRN Reason: Consult order Sodium Chloride (0.9 % Sodium Chloride Flush 3 Ml Syringe) 3 ml IVFLUSH QSHIFT [facility] Last Admin: 06/28/22 08:48 Dose: 3 ml Documented By: MAX Labs CBC & Chem 7: 06/27/22 08:21 06/28/22 06:07 Labs: Laboratory Results - last 24 hr 06/28/22 06:07 Estim Creat Clear Calc 149.9 Estimated GFR > 60 Microbiology Microbiology Results: Microbiology 06/23/22 08:00 Blood Culture - Final Blood - Venous No growth after 5 days. 06/23/22 07:46 Blood Culture - Final Blood - Venous No growth after 5 days. 06/23/22 16:00 Gram Stain - Final Cerebrospinal Fluid CSF Examination - Final Fluid Description - Final CSF Culture - Final No growth after 3 days. 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 mri findings not related to presentation neuro following keppra started follow up EEG, [place] iGM, antinmda antibodies no significant improvement HTN -continue lisinopril morbid obesity weight loss depression amitryptilline history of IV opiate dependence ?remote Full code Lovenox reason for continued hospitalization: aphasia Quality Stroke Does the patient have a stroke diagnosis?: No VTE Prior VTE?: No VTE Risk Level:: Medical - moderate - high VTE Device Contraindication: Treatment Not Indicated VTE Drug Contraindication: N/A - Med Ordered
[2022-06-28 11:28] VITALS: BP 135/61; PULSE 91; RESP 18; TEMP 37.1; O2SAT 98
--- NOTE | 2022-06-28 14:34 | MHC.CM.PN ---
Per ROUNDS discussion, Patient is not yet medically cleared for dc (IV Levetiracetam); home is the goal and CM will continue to follow.
[2022-06-28 15:16] VITALS: BP 124/75; PULSE 90; RESP 18; TEMP 37.2; O2SAT 97
--- NOTE | 2022-06-28 16:41 | MHC.SL.SWA ---
Addendum entered and electronically signed by Negra Huntley MA, CCC-SIGNAL PROCESSING ENGINEER 06/28/22 16:51: D.S. Original Note: Risk of Aspiration Due to: Neurological Condition Dysphasia Diet Status: Recommend CHOPPED/ADVANCED solids (NDD3), THIN liquids, pills whole or crushed in puree. Recommend supervision d/t pt's impulsivity to cue pt to slow down, and take small bites/sips. Monitor for s/s of aspiration. Liquid Consistency and Strategies for Safe Swallow: Liquid Intake Recommendation: Thin Liquid Intake Strategies: Small Sips No Straws Solid Food Consistency: Dietary Recommendations: Chopped/Advanced (NDD3) Oral Medication Intake: Whole with Puree Please contact the pharmacy regarding appropriate crushable or liquid drug formulations that are available whenever modified delivery is recommended. Compensatory Strategies and Precautions to be Taken for Safe Swallow: Sitting Upright (90 deg) Small Bites and Sips Alternate Liquids/Solids Rate of Ingestion Change Supervision While Eating and Drinking for Safe Swallow: Total Supervision (1:1) Swallowing Recommended Treatments: Compens. Strategy Educat. Recommendation for Speech: Outpatient Speech Therapy Inpatient Speech Therapy Comment: Pt seen this afternoon for bedside dysphagia treatment. EMERGENCY MEDICAL TECHNICIAN BASIC reported that pt had just chugged water and juice, forming more words, and has been tolerating thin liquids. RN reported that pt ate lunch very fast today. Screened language and cognition further by asking patient to write, answer auditory comprehensive questions, and perform automatic naming tasks. Attempted automatic naming tasks included singing Happy Birthday, count, recite days of week, and common cloze phrases. The only vocalization throughout these tasks was yeah and pt's moaning. When asked to write her name and the number 1, pt was observed to draw circles repetitively. Pt demonstrated difficulty holding pen with reduced fine motor skills. Pt able to express yeah vocally and shake head side to side for no, however pt does not appear to have reliable yes and no. When offered water, pt shook her head side to side. When asked if today was May, August, and January, pt answered yeah verbally for all months. Tolerated thin liquids, puree solids, and regular solids with no s/s of aspiration. Recommend supervision d/t pt's observed impulsivity while eating and drinking. Pt appeared as if she was going to throw up at the end of PO trials. When asked if her stomach hurt, pt reported yeah. Recommend GI consultation. Regular diet not recommended at this time d/t pt's demonstrated reduced fine and gross motor skills. Recommend UPGRADE to CHOPPED/ADVANCED (NDD3) solids and THIN liquids. RN, RD, and MD notified via [place]. Pills WHOLE or CRUSHED in PUREE. Recommend supervision d/t pt's impulsivity to cue pt to slow down, and take small bites/sips.Recommend pt be seen for dysphagia and speech tx during inpatient stay and at next level of care. Directory Assistance Operator Clinican/Clinical Fellow: Yes: Charissa Gonzales M.A., CF-SIGNAL PROCESSING ENGINEER Supervisory Statement: I have reviewed and agree with the student/clinical fellow's documentation: Speech Language Pathologist:
--- NOTE | 2022-06-28 17:30 | PC.NURSE ---
Patient anxious, unable to sit still for EEG. Patient able to move all extremities although can not follow neuro exam at this time. Patient still having difficulty finding words and becomes frustrated and thus tearful. Good PO intake. Good motor skills.
[2022-06-28] MEDS: Enoxaparin Sodium 40 MG/0.4 ML SYRINGE SUBCUT (18:15)
[2022-06-28 19:22] VITALS: BP 116/68; PULSE 91; RESP 18; TEMP 37.2; O2SAT 96
[2022-06-28] MEDS: Amitriptyline HCl 50 MG TABLET 100 MG PO (23:08)
[2022-06-28 23:24] VITALS: BP 110/64; PULSE 114; RESP 16; TEMP 36.2; O2SAT 97
[2022-06-29 03:29] VITALS: BP 132/68; PULSE 93; RESP 18; TEMP 37.4; O2SAT 96
[2022-06-29 07:21] VITALS: BP 140/64; PULSE 103; RESP 18; TEMP 36.8; O2SAT 99
--- NOTE | 2022-06-29 09:05 | P.PNIM_ITS ---
Subjective Subjective Date of Service: 06/29/22 Interval History: cc: aphasia interval history:still aphasic, but vocalizing a bit more Cardiovascular Cardiovascular: Reports no additional cardiovascular complaints Respiratory Respiratory: Reports no additional respiratory complaints Physical Exam Vital Signs: Vital Signs: Last Vital Signs Temp 98.2 F 06/29/22 07:21 Pulse 103 H 06/29/22 07:21 Resp 18 06/29/22 07:21 BP 140/64 H 06/29/22 07:21 Pulse Ox 99 06/29/22 07:21 O2 Del Method 06/29/22 07:21 O2 Flow Rate 2 06/23/22 18:17 BMI result Body Mass Index 47.5 General: Alert, aphasic, slight improvement in vocalization Resp: CTA bilateral, no accessory muscles used CVS: S1,S2,RRR GI: soft, non tender, non distended Neuro: aphasia, rue weakness Psych: flat affect Objective Data Active Medications Acetaminophen (Acetaminophen 325 Mg Tablet) 650 mg PO Q6H PRN PRN Reason: Pain, Mild (Pain Scale 1-3) Last Admin: 06/28/22 23:08 Dose: 650 mg Documented By: CHIDI Amitriptyline HCl (Amitriptyline Hcl 50 Mg Tablet) 100 mg PO BEDTIME [facility] Last Admin: 06/28/22 23:08 Dose: 100 mg Documented By: CHIDI Enoxaparin Sodium (Enoxaparin Sodium 40 Mg/0.4 Ml Syringe) 40 mg SUBCUT Q24H [facility] Last Admin: 06/28/22 18:15 Dose: 40 mg Documented By: ARPITA Levetiracetam (Keppra) 1,000 mg in 100 mls @ 400 mls/hr IV Q12H [facility] Lisinopril (Lisinopril 10 Mg Tablet) 10 mg PO DAILY [facility]; Protocol Last Admin: 06/28/22 08:48 Dose: 10 mg Documented By: MAX Midazolam HCl (Midazolam Hcl/Pf 2 Mg/2 Ml Vial) 2 mg IVPUSH ONCE PRN PRN Reason: mri Last Admin: 06/25/22 15:52 Dose: 2 mg Documented By: TOBY Ondansetron HCl (Ondansetron Hcl 4 Mg/2 Ml Vial) 4 mg IVPUSH Q8H PRN PRN Reason: Nausea and Vomiting Pharmacy Consult (Consult Rx Vancomycin Dosing) 1 each MISCELLANE DAILY PRN PRN Reason: Consult order Sodium Chloride (0.9 % Sodium Chloride Flush 3 Ml Syringe) 3 ml IVFLUSH QSHIFT [facility] Last Admin: 06/28/22 23:08 Dose: 3 ml Documented By: CHIDI Labs CBC & Chem 7: 06/27/22 08:21 06/28/22 06:07 Labs: Laboratory Results - last 24 hr 06/26/22 06:18 HIV 1&2 Ab/P24 Ag 4thGn Nonreactive Microbiology Microbiology Results: Microbiology 06/23/22 08:00 Blood Culture - Final Blood - Venous No growth after 5 days. 06/23/22 07:46 Blood Culture - Final Blood - Venous No growth after 5 days. 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 mri findings not related to presentation neuro following keppra started - increased to 1gm bid follow up EEG, [place] iGM, antinmda antibodies minimal improvement HTN -continue lisinopril morbid obesity weight loss depression amitryptilline history of IV opiate dependence ?remote Full code Lovenox reason for continued hospitalization: aphasia Quality Stroke Does the patient have a stroke diagnosis?: No VTE Prior VTE?: No VTE Risk Level:: Medical - moderate - high VTE Device Contraindication: Treatment Not Indicated VTE Drug Contraindication: N/A - Med Ordered
[2022-06-29] MEDS: lisinopriL 10 MG TABLET PO (09:19)
[2022-06-29] MEDS: 0.9 % Sodium Chloride Flush 3 ML SYRINGE IVFLUSH ×3 (09:20→23:52)
[2022-06-29] MEDS: levETIRAcetam in NaCl (iso-os) 1,000 MG/100 ML PIGGYBACK 400 MG IV ×2 (10:05→20:45)
[2022-06-29 11:39] VITALS: BP 118/55; PULSE 98; RESP 20; TEMP 36.9; O2SAT 98
[2022-06-29 15:53] VITALS: BP 110/55; PULSE 105; RESP 20; TEMP 36.8; O2SAT 96
--- NOTE | 2022-06-29 17:43 | MHC.SP.ADU ---
Referring provider: Dr. Reyes Reason for Referral: Aphasia Type of Treatment: 43184 Evaluation Speech Sound Production WITH Language Date of Plan of Treatment: 06/29/22 Onset of Symptoms/Illness: 06/29/22 Date Treatment Started: 06/29/22 Medical Diagnosis: SIRS w/ acute metabolic encephalopathy and aphasia. 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 mri findings not related to presentation Primary Speech Language Diagnosis: R47.01 Aphasia Secondary Speech Language Diagnosis: R13.10 Dysphagia History Patient is a 37 year old female who had sudden onset of confusion, garbled, incoherent speech, difficulty ambulating at home, was brought to the ED, diagnosed with Systemic Inflammatory Response Syndrome (SIRS), Acute metabolic encephalopathy, Aphasia, and concern for encephalitis. Medical History: High Blood Pressure Other: IVDA, Depression, Morbid Obesity, HTN Medication List: Recent Hospitalizations: No Respiratory Needs: Room Air Patient Orientation: Unable to Assess Social History: Employment Status: Unknown Highest level of education obtained: Unknown/Unable to report Current Living Situation: Lives with family in private home Assistive Devices in use: Comment: None noted Past Speech Language Therapy: Unknown Other Therapies Seen in Current Calendar Year: Other: Swallowing History: Dysphagia Specific: Comments: See Speech Clinical Swallow evaluation. Pt currently on diet of Chopped/Advanced w/ Thin Liquids. Pre-eval Risk for Aspiration: Neurological Condition Pre-evaluation Dietary Consistencies: Pre-eval Liquid Intake: Pre-eval Medication Intake: Reported Speech, Language, Cognition difficulties: Understanding Cognition Speaking Comments: Patient currently presents with a severe global aphasia. Quality of Life: Patient Stated Goal of Speech-Language Therapy: Ongoing assessment of language/communication, inpatient speech language therapy, plan for rehabilitative care. Assessment Speech Production: Aphasic: Fluent Garbled Clinical Impression: Impaired Observations: Patient presents with global aphasia. Verbal expression is limited, stereotyped (perseverative use of some true words in repetitive paraphasia/jargon). Informal Voice Assessment: Voice Loudness: Normal Voice Nasal Resonance: Normal Voice Oral Resonance: Normal Voice Phonatory-based Quality: Normal Voice Pitch: Normal Voice Other Observations: Clinical Impression: Intact Clinicial Observations: Tests of Speech & Lang Adults: BNT Clinical Impression: Impaired Observations: Pt was assessed with informal measures as well as attempt at [place] Naming Test. Pt asked a series of concrete Y/N questions, responding yes repeatedly and unreliably to all questions. Patient was asked to point at a variety of objects in room, did not initiate pointing on request, and became distressed/labile. Patient was asked to label pictures in BNT, concrete objects in room. On all attempts at verbal expression, Patient repeatedly produced paraphasia/jargon its a non no noner.. or no no noner... Patient became distressed at attempts to communicate and was intermittently labile throughout the assessment. Tests of Cognition: Clinical Impression: Observations: Augmentative and Alternative Communication: Observations: Impressions and Recommendations Summary: Impact on Daily Function/Activity Limitations: Daily Activities: Severe Interpersonal Interactions: Severe Education: Severe Employment: Severe Community: Severe Prognosis for Improvement: Guarded Comment: Pt w/ SIRS encephalopathy, may improve with cessation of symptoms. Recommendation for Speech Therapy: Inpatient Speech Therapy Speech Therapy through Rehab Facility Frequency/Duration: M-F Date Range for Service Requested: Time to Reassess: M[facility] Goals: Short Term Goals: Goal # : Goal Status: Goal# : Goal Status: Goal # : Goal Status: Goal # : Goal Status: Recommended Referrals to be Discussed with Primary Care Provider: Neurology Neuropsychological Eval Patient Education: Completed: Yes Patient/Caregiver Education: Described Results of Evaluation Comments/Barriers to Learning: Patient evidenced distress and difficulty communicating. 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
[2022-06-29 19:01] VITALS: BP 129/88; PULSE 122; RESP 17; TEMP 37; O2SAT 98
[2022-06-29] MEDS: Amitriptyline HCl 50 MG TABLET 100 MG PO (20:45)
[2022-06-29 23:07] VITALS: BP 103/61; PULSE 107; RESP 18; TEMP 36.9; O2SAT 96
--- NOTE | 2022-06-30 | EEG_ITS ---
This is a 16-channel EEG with an EKG lead. The patient is reported awake during the tracing. Background EEG rhythm is mostly low amplitude fast with occasional low amplitude fast alpha posteriorly and lower amplitude beta anteriorly. No definite sharp wave spikes, paroxysmal tendency, or asymmetry noted. Some lead and muscle artifacts are noted. Cardiac lead does not reveal any significant abnormality. Hyperventilation is unremarkable. IMPRESSION: This EEG did not reveal any abnormality suggestive of epilepsy. MD NAHEED Hearn/RADHA / [id number]
--- NOTE | 2022-06-30 06:34 | PC.NURSE ---
Patient remained in bed for most part of the night during shift. Alert with confusion. Denied any pain. Tolerated scheduled night medications well.
[2022-06-30 07:31] VITALS: BP 106/56; PULSE 85; RESP 20; TEMP 36.6; O2SAT 96
--- NOTE | 2022-06-30 08:12 | PM.NEUROCN ---
History of Present Illness Data of Consult Service Date: 06/30/22 Primary Care Provider: Unknown Physician HPI Reason for consult: Encephalopathy/encephalitis 37 years old woman being treated for viral encephalitis. I saw her yesterday and again this morning. Compared to few days ago she was much more alert and awake making eye contact but not following commands or comprehending. Nursing stated that she did say a word or 2 here and there but to my prompting she did not other than just saying yes. Review of Systems Review of Systems: Could not be done with [facility] Family History Family history: reviewed and not pertinent Social History Social History Household Members: Unknown / Unable to assess Housing: Unknown / Unable to assess Unable to assess alcohol history related to: Unknown and Refusing to respond Patient Tobacco Use Status: Tobacco use Unknown Use of substances other than those prescribed or required for medical reasons: Refusing to respond Currently Displaying Signs/Symptoms of Drug Intoxication Withdrawal: No Advance Directives: No Advance Directives Information Provided: No Nutrition Risks: No Nutritional Risk Patient : No : No Poor oral hygiene: No service: No Current occupational status: employed Meds Allergies Allergy/AdvReac Type Severity Reaction Status Date / Time codeine [CODEINE] Allergy Intermediate HIVES Unverified 05/15/20 15:27 Active Medications: Current Medications Acetaminophen (Acetaminophen 325 Mg Tablet) 650 mg PO Q6H PRN PRN Reason: Pain, Mild (Pain Scale 1-3) Last Admin: 06/28/22 23:08 Dose: 650 mg Amitriptyline HCl (Amitriptyline Hcl 50 Mg Tablet) 100 mg PO BEDTIME [facility] Last Admin: 06/29/22 20:45 Dose: 100 mg Enoxaparin Sodium (Enoxaparin Sodium 40 Mg/0.4 Ml Syringe) 40 mg SUBCUT Q24H [facility] Last Admin: 06/29/22 18:37 Dose: Not Given Levetiracetam (Keppra) 1,000 mg in 100 mls @ 400 mls/hr IV Q12H [facility] Last Infusion: 06/29/22 21:00 Dose: Infused Lisinopril (Lisinopril 10 Mg Tablet) 10 mg PO DAILY [facility]; Protocol Last Admin: 06/29/22 09:19 Dose: 10 mg Midazolam HCl (Midazolam Hcl/Pf 2 Mg/2 Ml Vial) 2 mg IVPUSH ONCE PRN PRN Reason: mri Last Admin: 06/25/22 15:52 Dose: 2 mg Ondansetron HCl (Ondansetron Hcl 4 Mg/2 Ml Vial) 4 mg IVPUSH Q8H PRN PRN Reason: Nausea and Vomiting Pharmacy Consult (Consult Rx Vancomycin Dosing) 1 each MISCELLANE DAILY PRN PRN Reason: Consult order Sodium Chloride (0.9 % Sodium Chloride Flush 3 Ml Syringe) 3 ml IVFLUSH QSMIFT [facility] Last Admin: 06/29/22 23:52 Dose: 3 ml Home Medications Medication Instructions Recorded Confirmed Last Taken Type amitriptyline 100 mg tablet 1 tab PO BEDTIME 06/23/22 06/23/22 Unknown History hydroxyzine HCl 50 mg tablet 1 tab PO TID PRN anxiety 06/23/22 06/23/22 Unknown History ibuprofen 800 mg tablet 1 tab PO Q8H PRN pain 06/23/22 06/23/22 Unknown History lisinopril 10 mg tablet 1 tab PO DAILY 06/23/22 06/23/22 Unknown History tizanidine 4 mg tablet 1 tab PO Q6H PRN muscle spasm 06/23/22 06/23/22 Unknown History tramadol 50 mg tablet 1 tab PO Q6H PRN pain 06/23/22 06/23/22 Unknown History Physical Exam Vital Signs: Vital Signs: Last Vital Signs Temp 97.8 F 06/30/22 07:31 Pulse 85 06/30/22 07:31 Resp 20 06/30/22 07:31 BP 106/56 L 06/30/22 07:31 Pulse Ox 96 06/30/22 07:31 O2 Del Method 06/30/22 07:31 O2 Flow Rate 2 06/23/22 18:17 BMI result Body Mass Index 47.5 Neuro: Other: Alert and awake making an eye contact not following commands and not talking more than just seeing a single word ?yes? right extensor plantar has disappeared and now right plantar is flexor. Results Labs CBC & Chem 7: 06/27/22 08:21 06/28/22 06:07 Microbiology Microbiology Results: Microbiology 06/23/22 08:00 Blood - Venous Blood Culture - Final No growth after 5 days. 06/23/22 07:46 Blood - Venous Blood Culture - Final No growth after 5 days. 06/23/22 16:00 Cerebrospinal Fluid Gram Stain - Final 06/23/22 16:00 Cerebrospinal Fluid CSF Examination - Final 06/23/22 16:00 Cerebrospinal Fluid Fluid Description - Final 06/23/22 16:00 Cerebrospinal Fluid CSF Culture - Final No growth after 3 days. Assessment and Plan (1) Encephalitis: Status: Acute 37 years old woman being treated for viral encephalitis her exam is somewhat better to the point that right hemiparesis or right extensor plantar has disappeared. Leg which is still not significantly improved. That no obvious signs of convulsion or seizure. But we did not have any EEG so far as she was not cooperative. My recommendation is to continue acyclovir treatment in finish 2 weeks course. It is important now to obtain an EEG and I would request that that should be tried today. Otherwise continue present dose of levetiracetam and also sertraline as this type of condition can make people or patients quite depressed. Procedures Date of Service Date of Service: 06/30/22
[2022-06-30] MEDS: 0.9 % Sodium Chloride Flush 3 ML SYRINGE IVFLUSH ×2 (09:26→22:59)
[2022-06-30] MEDS: lisinopriL 10 MG TABLET PO (09:26)
[2022-06-30] MEDS: levETIRAcetam in NaCl (iso-os) 1,000 MG/100 ML PIGGYBACK 400 MG IV ×2 (09:31→22:53)
[2022-06-30] MEDS: Sertraline HCL 25 MG TABLET PO (10:38)
[2022-06-30 11:05] VITALS: BP 126/72; PULSE 101; RESP 20; TEMP 36.8; O2SAT 98
--- NOTE | 2022-06-30 13:43 | P.PNIM_ITS ---
Subjective Subjective Date of Service: 06/30/22 Interval History: the patient was seen and evaluated this morning Laying in bed, feels anxious and mildly foggy in her brain Able to say a few words but having difficulties finding the right word sometimes which makes her frustrated Denies any fever, chills or headache or double vision No reported other overnight events. Systemic review: No fever, chills or weakness No chest pain, palpitation No shortness of breath or coughing No abdominal pain, nausea or vomiting No urinary symptoms No any rash or wounds Physical Exam Vital Signs: Vital Signs: Last Vital Signs Temp 98.3 F 06/30/22 11:05 Pulse 101 H 06/30/22 11:05 Resp 20 06/30/22 11:05 BP 126/72 06/30/22 11:05 Pulse Ox 98 06/30/22 11:05 O2 Del Method 06/30/22 11:05 O2 Flow Rate 2 06/23/22 18:17 BMI result Body Mass Index 47.5 Const: Other: Constitutional : Alert, oriented, not in distress Neck : Normal inspection, Supple Cardiovascular : RRR, no JVP, no lower extremity edema Respiratory : fair bilateral air entry, no crackles, wheezes or rhonchi Gastrointestinal: soft, lax, Normal bowel sounds, Non tender Skin : Warm, Dry Neurological : Alert & oriented x3, right-sided minimal weakness and upper extremity clumsiness, pronounce words correctly but having difficulties finding the right word and end up repeating most of them Objective Data Active Medications Acetaminophen (Acetaminophen 325 Mg Tablet) 650 mg PO Q6H PRN PRN Reason: Pain, Mild (Pain Scale 1-3) Last Admin: 06/28/22 23:08 Dose: 650 mg Documented By: CHIDI Acyclovir (Acyclovir 200 Mg Capsule) 400 mg PO TID [facility] Stop: 07/14/22 14:59 Amitriptyline HCl (Amitriptyline Hcl 50 Mg Tablet) 100 mg PO BEDTIME [facility] Last Admin: 06/29/22 20:45 Dose: 100 mg Documented By: LEONID Enoxaparin Sodium (Enoxaparin Sodium 40 Mg/0.4 Ml Syringe) 40 mg SUBCUT Q24H [facility] Last Admin: 06/29/22 18:37 Dose: Not Given Documented By: ELIZABETH Non-Admin Reason: Patient Refused Levetiracetam (Keppra) 1,000 mg in 100 mls @ 400 mls/hr IV Q12H [facility] Last Infusion: 06/30/22 10:38 Dose: 0 mls/hr Documented By: SASHA Lisinopril (Lisinopril 10 Mg Tablet) 10 mg PO DAILY [facility]; Protocol Last Admin: 06/30/22 09:26 Dose: 10 mg Documented By: SASHA Midazolam HCl (Midazolam Hcl/Pf 2 Mg/2 Ml Vial) 2 mg IVPUSH ONCE PRN PRN Reason: mri Last Admin: 06/25/22 15:52 Dose: 2 mg Documented By: TOBY Ondansetron HCl (Ondansetron Hcl 4 Mg/2 Ml Vial) 4 mg IVPUSH Q8H PRN PRN Reason: Nausea and Vomiting Pharmacy Consult (Consult Rx Vancomycin Dosing) 1 each MISCELLANE DAILY PRN PRN Reason: Consult order Sertraline HCl (Sertraline Hcl 25 Mg Tablet) 25 mg PO DAILY [facility] Last Admin: 06/30/22 10:38 Dose: 25 mg Documented By: SASHA Sodium Chloride (0.9 % Sodium Chloride Flush 3 Ml Syringe) 3 ml IVFLUSH QSHIFT [facility] Last Admin: 06/30/22 09:26 Dose: 3 ml Documented By: SASHA Labs CBC & Chem 7: 06/27/22 08:21 06/28/22 06:07 Assessment and Plan (1) Encephalitis: Status: Acute (2) Global aphasia: Status: Acute Plan 37-year-old female PMH IVDA, depression, morbid obesity, HTN presented with SIRS, ams, and aphasia acute metabolic encephalopathy and aphasia concern for encephalitis, negative encephalitis screen improving slowly LP mildly elevated WBCs at 16 culture and pcr panel negative MRI showing 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 with mild deformity of the medial aspect of left thalamus and other findings, Neurology feels findings not related to presentation Neurology input appreciated, acyclovir for 2 weeks, do EEG and continue Keppra keppra 1gm bid Pending EEG, [place] iGM, antinmda antibodies Occupational therapy HTN continue lisinopril morbid obesity weight loss depression amitryptilline history of IV opiate dependence ?remote Full code Lovenox reason for continued hospitalization: pending Antibodies result to dictate treatment plan and safe discharge plan Quality Stroke Does the patient have a stroke diagnosis?: No VTE Prior VTE?: No VTE Risk Level:: Medical - moderate - high VTE Device Contraindication: Treatment Not Indicated VTE Drug Contraindication: N/A - Med Ordered
--- NOTE | 2022-06-30 14:12 | MHC.SL.SOA ---
Referring Provider: Dr. Reyes Reason for Referral: Aphasia Date of Plan of Treatment:06/29/22 Onset of Symptoms/Illness:06/29/22 Date Treatment Started:06/29/22 Medical Diagnosis:SIRS w/ acute metabolic encephalopathy and aphasia. 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 mri findings not related to presentation Primary Speech Language Diagnosis:R47.01 Aphasia Secondary Speech Language Diagnosis:R13.10 Dysphagia Reason for Visit:88203 Individual Treatment Subjective:Pt was seen at bedside by speech pathologist and student advisor clinician for speech treatment. Pt was awake and alert. Pt was initially laying in bed and sat up when STEEL RIGGER arrived. Pt appeared frustrated during today's visit. Objective: Pt responded to all WH-questions with mhm. Pt answered unreliably yes to all yes/no questions as well. For that reason, we were unable to accurately assess pt's orientation. When asked to identify objects in the room, pt did look and reach her hand in the direction of the television when STEEL RIGGER named tv, but did not point for other objects named. When pt was provided with instructions for this task, pt continuously shrugged, shook her head no, and stated, yeah. Pt was unable to repeat words and phrases. STEEL RIGGER began singing Happy Birthday, and asked pt to sing along. Again pt stated yeah and shrugged. Pt did not count along with the clinician. Pt stated, I don't. Pt had communication board in her room. Pt was asked to point to the image which matched, I am cold. Pt looked at the board, moaned, shook her head, and said, yeah. At this point, pt appeared quite frustrated. STEEL RIGGER brought to pt new communication boards with images that were larger and more clear. Communication board includes images for: yes/no, sleep, bathroom, tv, drink, eat, medicine, I'm hot, I'm cold, I'm in pain, body parts, alphabet for spelling, tired, get dressed, call family, sit down, raise head, medicine, doctor, nurse. Will continue to work on multi-modalities for functional communication. Assessment:Pt's verbal responses during our visit today was limited to yeah and I don't. Pt exhibited difficulty following directions. Per chart review, Neurology is following this pt. Pt presents with SEVERE global APHASIA. Notes: Recommend intensive speech therapy at next level of care after discharge. STEEL RIGGER will continue to follow pt daily M-F for speech therapy at bedside during hospitalization. Seen by: Graduate/Clinical Fellow: Yes: Gordon Booker Supervisory Statement: f_Reg Query Last Value , MHC.AU.SIGNATUR Speech Language Pathologist: Negra Huntley M.A., CCC-STEEL RIGGER
--- NOTE | 2022-06-30 15:34 | MHC.CM.PN ---
per rounds pt to have an eeg today
[2022-06-30 15:46] VITALS: BP 121/77; PULSE 107; RESP 18; TEMP 35.9; O2SAT 95
[2022-06-30] MEDS: Enoxaparin Sodium 40 MG/0.4 ML SYRINGE SUBCUT (18:53)
[2022-06-30 20:00] VITALS: BP 115/74; PULSE 112; RESP 18; TEMP 36.8; O2SAT 97
[2022-06-30] MEDS: Acyclovir 200 MG CAPSULE 800 MG PO (20:06)
[2022-06-30] MEDS: Amitriptyline HCl 50 MG TABLET 100 MG PO (20:06)
[2022-06-30 23:44] VITALS: BP 127/64; PULSE 97; RESP 14; TEMP 37.1; O2SAT 97
[2022-07-01 03:44] VITALS: BP 110/55; PULSE 88; RESP 14; TEMP 36.4; O2SAT 98
[2022-07-01 06:45] LABS: Hematocrit 38.5 % (37.0-47.0); Hemoglobin 13.8 g/dl (12.0-16.0); Mean Corpuscular HGB Conc 35.8 g/dl (31.0-35.0); Mean Corpuscular Hemoglobin 31.8 pg (27.0-33.0); Mean Corpuscular Volume 88.7 fL (80.0-98.0); Mean Platelet Volume 10.6 fL (9.4-12.3); Platelet Count 286 X10*3/uL (160-400); Red Blood Count 4.34 X10*6/uL (4.20-5.50); Red Cell Distribution Width 11.9 % (11.0-16.0); White Blood Count 7.7 X10*3/uL (4.8-10.8)
[2022-07-01 07:06] LABS: Anion Gap 14 (12-20); Blood Urea Nitrogen 12 mg/dL (9-16); Calcium 8.9 mg/dL (8.4-10.2); Carbon Dioxide 24 mmol/L (22-29); Chloride 103 mmol/L (96-108); Creatinine Clr Calc Pharmacy 139.8; Estimated Glomerular Filt Rate > 60; Glucose Random 117 mg/dL (60-115); Potassium 4.2 mmol/L (3.3-5.1); Sodium 137 mmol/L (135-145)
[2022-07-01 07:21] VITALS: BP 116/57; PULSE 75; RESP 18; TEMP 36.1; O2SAT 96
[2022-07-01] MEDS: Sertraline HCL 25 MG TABLET PO (08:55)
[2022-07-01] MEDS: levETIRAcetam 1,000 MG TABLET 1000 MG PO (08:55)
[2022-07-01] MEDS: lisinopriL 10 MG TABLET PO (08:55)
[2022-07-01] MEDS: Acyclovir 200 MG CAPSULE 800 MG PO (08:55)
[2022-07-01] MEDS: 0.9 % Sodium Chloride Flush 3 ML SYRINGE IVFLUSH ×2 (09:00→17:03)
--- NOTE | 2022-07-01 11:35 | MHC.CM.PN ---
Per MD, Patient will need IV Acyclovir X 2 weeks via midline(anticipate dc next week/likely will need STR); CM will follow.
[2022-07-01 11:36] VITALS: BP 118/62; PULSE 77; RESP 20; TEMP 36.1; O2SAT 97
--- NOTE | 2022-07-01 11:39 | HO.PM.IMPN ---
Subjective Subjective Date of Service: 07/01/22 Interval History: the patient was seen and evaluated this morning Laying in bed, still feeling anxious and foggy in her brain Able to say a few words but lose track easily and cannot follow commands or point that any named thing in her room Denies any fever, chills or headache or double vision No reported other overnight events. Systemic review: No fever, chills or weakness No chest pain, palpitation No shortness of breath or coughing No abdominal pain, nausea or vomiting No urinary symptoms No reported rash or wounds Physical Exam Vital Signs: Vital Signs: Last Vital Signs Temp 97 F 07/01/22 11:36 Pulse 77 07/01/22 11:36 Resp 20 07/01/22 11:36 BP 118/62 07/01/22 11:36 Pulse Ox 97 07/01/22 11:36 O2 Del Method 07/01/22 11:36 O2 Flow Rate 2 06/23/22 18:17 BMI result Body Mass Index 47.5 Const: Other: Constitutional : Alert, oriented, not in distress Neck : Normal inspection, Supple Cardiovascular : RRR, no JVP, no lower extremity edema Respiratory : fair bilateral air entry, no crackles, wheezes or rhonchi Gastrointestinal: soft, lax, Normal bowel sounds, Non tender Skin : Warm, Dry Neurological : Alert & oriented x3, right-sided improving minimal weakness and upper extremity clumsiness, pronounce words correctly but having difficulties finding the right word and end up repeating most of them Objective Data Active Medications Acetaminophen (Acetaminophen 325 Mg Tablet) 650 mg PO Q6H PRN PRN Reason: Pain, Mild (Pain Scale 1-3) Last Admin: 06/28/22 23:08 Dose: 650 mg Documented By: CHIDI Amitriptyline HCl (Amitriptyline Hcl 50 Mg Tablet) 100 mg PO BEDTIME [facility] Last Admin: 06/30/22 20:06 Dose: 100 mg Documented By: MELODIE Enoxaparin Sodium (Enoxaparin Sodium 40 Mg/0.4 Ml Syringe) 40 mg SUBCUT Q24H [facility] Last Admin: 06/30/22 18:53 Dose: 40 mg Documented By: N-SOFFA Acyclovir Sodium 800 mg/ (Sodium Chloride) 266 mls @ 266 mls/hr IV Q8H [facility] Levetiracetam (Levetiracetam 1,000 Mg Tablet) 1,000 mg PO BID [facility] Last Admin: 07/01/22 08:55 Dose: 1,000 mg Documented By: ADOLFO Lisinopril (Lisinopril 10 Mg Tablet) 10 mg PO DAILY [facility]; Protocol Last Admin: 07/01/22 08:55 Dose: 10 mg Documented By: ADOLFO Midazolam HCl (Midazolam Hcl/Pf 2 Mg/2 Ml Vial) 2 mg IVPUSH ONCE PRN PRN Reason: mri Last Admin: 06/25/22 15:52 Dose: 2 mg Documented By: TOBY Ondansetron HCl (Ondansetron Hcl 4 Mg/2 Ml Vial) 4 mg IVPUSH Q8H PRN PRN Reason: Nausea and Vomiting Pharmacy Consult (Consult Rx Vancomycin Dosing) 1 each MISCELLANE DAILY PRN PRN Reason: Consult order Sertraline HCl (Sertraline Hcl 25 Mg Tablet) 25 mg PO DAILY [facility] Last Admin: 07/01/22 08:55 Dose: 25 mg Documented By: ADOLFO Sodium Chloride (0.9 % Sodium Chloride Flush 3 Ml Syringe) 3 ml IVFLUSH QSHIFT [facility] Last Admin: 07/01/22 09:00 Dose: 3 ml Documented By: ADOLFO Labs CBC & Chem 7: 07/01/22 06:36 07/01/22 06:36 Labs: Laboratory Results - last 24 hr 07/01/22 07/01/22 06:36 06:36 MCV 88.7 MCH 31.8 MCHC 35.8 H RDW 11.9 Plt Count 286 MPV 10.6 Absolute Nucleated RBC 0.000 Nucleated RBC % (auto) 0.0 Anion Gap 14 Estim Creat Clear Calc 139.8 Estimated GFR > 60 Random Glucose 117 H Calcium 8.9 Assessment and Plan (1) Global aphasia: Status: Acute (2) Toxic encephalopathy: Status: Acute Plan 37-year-old female PMH IVDA, depression, morbid obesity, HTN presented with SIRS, ams, and aphasia acute toxic metabolic encephalopathy and global aphasia concern for viral encephalitis, negative encephalitis screen improving slowly LP mildly elevated WBCs at 16 culture and pcr panel negative Pending [place] iGM, antinmda antibodies MRI showed 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 with mild deformity of the medial aspect of left thalamus and other findings, Neurology feels findings not related to presentation Neurology input appreciated, acyclovir for 2 weeks, negative EEG , discontinue Keppra and repeat MRI Id recommended to repeat LP to confirm negative results for encephalitis panel Discontinue Keppra Occupational therapy HTN Hold lisinopril morbid obesity weight loss depression amitryptilline history of IV opiate dependence Negative urine tox Full code Lovenox reason for continued hospitalization: pending Antibodies result to dictate treatment plan and safe discharge plan Quality Stroke Does the patient have a stroke diagnosis?: No VTE Prior VTE?: No VTE Risk Level:: Medical - moderate - high VTE Device Contraindication: Treatment Not Indicated VTE Drug Contraindication: N/A - Med Ordered
--- NOTE | 2022-07-01 12:50 | PM.IDPN ---
Subjective Subjective Date of Service: 07/01/22 Critical Care Time (minutes): 15 Comment: she is still not following commands or talking appropriately, not seeing any improvement Objective Data Labs CBC & Chem 7: 07/01/22 06:36 07/01/22 06:36 Labs: Laboratory Results - last 24 hr 07/01/22 07/01/22 06:36 06:36 WBC 7.7 RBC 4.34 Hgb 13.8 Hct 38.5 MCV 88.7 MCH 31.8 MCHC 35.8 H RDW 11.9 Plt Count 286 MPV 10.6 Absolute Nucleated RBC 0.000 Nucleated RBC % (auto) 0.0 Sodium 137 Potassium 4.2 D Chloride 103 Carbon Dioxide 24 Anion Gap 14 BUN 12 Creatinine 0.74 Estim Creat Clear Calc 139.8 Estimated GFR > 60 Random Glucose 117 H Calcium 8.9 Microbiology Microbiology Results: Microbiology 06/23/22 08:00 Blood - Venous Blood Culture - Final No growth after 5 days. 06/23/22 07:46 Blood - Venous Blood Culture - Final No growth after 5 days. 06/23/22 16:00 Cerebrospinal Fluid Gram Stain - Final 06/23/22 16:00 Cerebrospinal Fluid CSF Examination - Final 06/23/22 16:00 Cerebrospinal Fluid Fluid Description - Final 06/23/22 16:00 Cerebrospinal Fluid CSF Culture - Final No growth after 3 days. Physical Exam Vital Signs: Vital Signs: Last Vital Signs Temp 97 F 07/01/22 11:36 Pulse 77 07/01/22 11:36 Resp 20 07/01/22 11:36 BP 118/62 07/01/22 11:36 Pulse Ox 97 07/01/22 11:36 O2 Del Method 07/01/22 11:36 O2 Flow Rate 2 06/23/22 18:17 BMI result Body Mass Index 47.5 Eyes: General: appearance normal, both eyes and all related structures Resp: Effort & Inspection: normal respiratory effort Cardio: Rate: regular rate Rhythm: regular rhythm GI: Palpation (GI): Soft to palpation and nontender Neuro: Other: very sleepy and encephalopathic not engaging in conversation nonfocal Assessment and Plan Assessment and plan (1) Toxic encephalopathy: Problem details: She doesnt have evidence of fever or sepsis which is usually feature of encephalitis,herpes and other Meningitis/encephalitis panel negative herpes and there can be 4-8 percent false negative There is no temporal involvement on MRI but this is without contrast Possible other neurologic syndrome HIV negative Status: Acute Plan Repeat LP and check HSV PCR although features of this not present is a treatable encephalitis and being treated with Acyclovir It is not incorrect to hold Acyclovir if PCR negative and restart if patient declines but would recheck LP meningoencephalitis panel and check Lyme and EEE and West Nile as well on LP and anything else Neurology requests Would repeat MRI with contrast of brain and check temporal involvement which would be seen with HSV encephalitis. Time Spent With Patient Time: Total time spent is greater than 50% in coordination of care (as documented) at patient's floor/unit and/or counseling patient:
[2022-07-01 14:09] LABS: INTERNATIONAL NORM RATIO 1.1 (0.9-1.1); Prothrombin Time 12.7 SEC (10.0-13.1)
[2022-07-01 14:11] LABS: Partial Thromboplastin Time 33.1 SEC (26.0-36.4)
[2022-07-01 15:49] VITALS: BP 120/70; PULSE 116; RESP 16; TEMP 37; O2SAT 98
[2022-07-01] MEDS: Enoxaparin Sodium 40 MG/0.4 ML SYRINGE SUBCUT (17:04)
[2022-07-01] MEDS: Midazolam HCl/PF 2 MG/2 ML VIAL IVPUSH (17:04)
[2022-07-01 18:57] VITALS: BP 121/59; PULSE 96; RESP 16; TEMP 35.7; O2SAT 99
[2022-07-01] MEDS: Amitriptyline HCl 50 MG TABLET 100 MG PO (21:12)
[2022-07-01 23:15] VITALS: BP 119/68; PULSE 95; RESP 16; TEMP 36.8; O2SAT 98
[2022-07-02] MEDS: 0.9 % Sodium Chloride Flush 3 ML SYRINGE IVFLUSH ×3 (00:16→22:01)
[2022-07-02 03:13] VITALS: BP 128/75; PULSE 97; RESP 15; TEMP 36.5; O2SAT 96
[2022-07-02 07:49] VITALS: BP 134/69; PULSE 82; RESP 18; TEMP 36.4; O2SAT 98
[2022-07-02] MEDS: Sertraline HCL 25 MG TABLET PO (09:02)
[2022-07-02 09:35] LABS: Anion Gap 15 (12-20); Blood Urea Nitrogen 12 mg/dL (9-16); Calcium 8.7 mg/dL (8.4-10.2); Carbon Dioxide 23 mmol/L (22-29); Chloride 105 mmol/L (96-108); Estimated Glomerular Filt Rate > 60; Glucose Random 105 mg/dL (60-115); Potassium 4.3 mmol/L (3.3-5.1); Sodium 139 mmol/L (135-145)
[2022-07-02 11:13] VITALS: BP 116/77; PULSE 98; RESP 20; TEMP 36.3; O2SAT 97
--- NOTE | 2022-07-02 13:39 | P.PNIM_ITS ---
Subjective Subjective Date of Service: 07/02/22 Interval History: the patient was seen and evaluated this morning Laying in bed, still feeling anxious and frustrated from being unable to find the right words Could not sit still for the MRI study Refused to do lumbar puncture Denies any fever, chills or headache or double vision No reported other overnight events. Review of Systems Review of Systems: Yes Unobtainable due to mental condition and Unobtainable due to mental status Physical Exam Vital Signs: Vital Signs: Last Vital Signs Temp 97.3 F 07/02/22 11:13 Pulse 98 07/02/22 11:13 Resp 20 07/02/22 11:13 BP 116/77 07/02/22 11:13 Pulse Ox 97 07/02/22 11:13 O2 Del Method 07/02/22 11:13 O2 Flow Rate 2 06/23/22 18:17 BMI result Body Mass Index 47.5 Const: Other: Constitutional : Alert, oriented, not in distress Neck : Normal inspection, Supple Cardiovascular : RRR, no JVP, no lower extremity edema Respiratory : fair bilateral air entry, no crackles, wheezes or rhonchi Gastrointestinal: soft, lax, Normal bowel sounds, Non tender Skin : Warm, Dry Neurological : Alert & oriented x3, no noticeable weakness on the right-sided anymore, pronounce words correctly but having difficulties finding the right word and end up repeating most of them Objective Data Active Medications Acetaminophen (Acetaminophen 325 Mg Tablet) 650 mg PO Q6H PRN PRN Reason: Pain, Mild (Pain Scale 1-3) Last Admin: 06/28/22 23:08 Dose: 650 mg Documented By: CHIDI Amitriptyline HCl (Amitriptyline Hcl 50 Mg Tablet) 100 mg PO BEDTIME [facility] Last Admin: 07/01/22 21:12 Dose: 100 mg Documented By: SOTERO Enoxaparin Sodium (Enoxaparin Sodium 40 Mg/0.4 Ml Syringe) 40 mg SUBCUT Q24H [facility] Last Admin: 07/01/22 17:04 Dose: 40 mg Documented By: MIGUE Acyclovir Sodium 800 mg/ (Sodium Chloride) 266 mls @ 266 mls/hr IV Q8H [facility] Last Admin: 07/02/22 08:59 Dose: Not Given Documented By: LOKESH Non-Admin Reason: No Access Lisinopril (Lisinopril 10 Mg Tablet) 10 mg PO DAILY [facility]; Protocol Last Admin: 07/01/22 08:55 Dose: 10 mg Documented By: ADOLFO Ondansetron HCl (Ondansetron Hcl 4 Mg/2 Ml Vial) 4 mg IVPUSH Q8H PRN PRN Reason: Nausea and Vomiting Pharmacy Consult (Consult Rx Vancomycin Dosing) 1 each MISCELLANE DAILY PRN PRN Reason: Consult order Sertraline HCl (Sertraline Hcl 25 Mg Tablet) 25 mg PO DAILY [facility] Last Admin: 07/02/22 09:02 Dose: 25 mg Documented By: LOKESH Sodium Chloride (0.9 % Sodium Chloride Flush 3 Ml Syringe) 3 ml IVFLUSH QSHIFT [facility] Last Admin: 07/02/22 08:59 Dose: Not Given Documented By: LOKESH Non-Admin Reason: No Access Labs CBC & Chem 7: 07/01/22 06:36 07/02/22 08:36 Labs: Laboratory Results - last 24 hr 07/01/22 07/02/22 13:47 08:36 PT 12.7 INR 1.1 APTT 33.1 Anion Gap 15 Estim Creat Clear Calc 138.0 Estimated GFR > 60 Random Glucose 105 Calcium 8.7 Assessment and Plan (1) Toxic encephalopathy: Status: Acute (2) Global aphasia: Status: Acute Plan 37-year-old female PMH IVDA, depression, morbid obesity, HTN presented with SIRS, ams, and aphasia acute toxic metabolic encephalopathy and global aphasia concern for viral encephalitis, negative encephalitis screen improving slowly LP mildly elevated WBCs at 16 culture and pcr panel negative Pending west nile iGM, antinmda antibodies MRI showed 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 with mild deformity of the medial aspect of left thalamus and other findings, Neurology feels findings not related to presentation Neurology input appreciated, acyclovir for 2 weeks, negative EEG , discontinue Keppra and repeat MRI Patient could not tolerate sitting still for the MRI, canceled Id recommended to repeat LP to confirm negative results for encephalitis panel, patient refused LP once she was on the IR table Discontinue Keppra Occupational therapy HTN Hold lisinopril morbid obesity weight loss depression amitryptilline history of IV opiate dependence Negative urine tox Full code Lovenox reason for continued hospitalization: pending Antibodies result to dictate treatment plan and safe discharge plan Quality Stroke Does the patient have a stroke diagnosis?: No VTE Prior VTE?: No VTE Risk Level:: Medical - moderate - high VTE Device Contraindication: Treatment Not Indicated VTE Drug Contraindication: N/A - Med Ordered
--- NOTE | 2022-07-02 15:51 | MHC.CM.PN ---
per rounds pt will have a midline placed will be here over the weekend
--- NOTE | 2022-07-02 17:13 | HO.MIDLINE_ITS ---
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 Using ultrasound guidance, right cephalic vein access was obtained on first attempt by this RN. 20G X 10CM ST Non-PASV Midline was positioned. The procedure was performed in S272. Ultrasound was used to document vein patency and for needle entry. A formal ultrasound picture was recorded. Vascular Slab Puller has released the line for use and it is currently dressed with a StatLock, Tegaderm, and CHG disc. Verification has been pe rformed for blood return and line patency. Arm Circumference: 39.5 CM Equipment: BARD PowerGlide ST Midline Catheter Type: [id number] Non-PASV Midline Lot #: [id number]
[2022-07-02] MEDS: Acetaminophen 325 MG TABLET 650 MG PO (18:18)
[2022-07-02] MEDS: Enoxaparin Sodium 40 MG/0.4 ML SYRINGE SUBCUT (18:23)
--- NOTE | 2022-07-02 19:55 | MHC.SLORD ---
Addendum entered and electronically signed by Negra Huntley MA, CCC-MIGRATION SPECIALIST 07/02/22 20:00: D.S. Original Note: Speech Language Pathology Order Status: Pt not seen by factory maintenance technician on this date. MIGRATION SPECIALIST will continue to follow for toleration of diet and language tx.
[2022-07-02 20:00] VITALS: BP 134/83; PULSE 108; RESP 18; TEMP 36.1; O2SAT 94
[2022-07-02] MEDS: Amitriptyline HCl 50 MG TABLET 100 MG PO (21:58)
[2022-07-02] MEDS: 0.9 % Sodium Chloride Flush 10 ML SYRINGE 5 ML IVFLUSH (22:01)
[2022-07-02 23:08] VITALS: BP 129/79; PULSE 113; RESP 20; TEMP 36.9; O2SAT 98
[2022-07-03 03:08] VITALS: BP 128/58; PULSE 91; RESP 20; TEMP 37.1; O2SAT 95
[2022-07-03 07:41] VITALS: BP 131/63; PULSE 93; RESP 18; TEMP 36.4; O2SAT 98
[2022-07-03] MEDS: Sertraline HCL 25 MG TABLET PO (10:09)
[2022-07-03] MEDS: 0.9 % Sodium Chloride Flush 3 ML SYRINGE IVFLUSH ×2 (10:09→17:22)
[2022-07-03] MEDS: 0.9 % Sodium Chloride Flush 10 ML SYRINGE 5 ML IVFLUSH ×2 (10:09→17:22)
[2022-07-03 11:43] VITALS: BP 143/88; PULSE 110; RESP 20; TEMP 36.4; O2SAT 97
--- NOTE | 2022-07-03 12:17 | P.PNIM_ITS ---
Subjective Subjective Date of Service: 07/03/22 Interval History: the patient was seen and evaluated this morning Sitting in her chair, able to speake more words and say full sentences like: i want to go home feeling anxious and frustrated from being unable to find the right words Denies any fever, chills or headache or double vision No reported other overnight events. Review of Systems No fever, chills or weakness No chest pain, palpitation No shortness of breath or coughing No abdominal pain, nausea or vomiting No urinary symptoms No rash or wounds Physical Exam Vital Signs: Vital Signs: Last Vital Signs Temp 97.6 F 07/03/22 11:43 Pulse 110 H 07/03/22 11:43 Resp 20 07/03/22 11:43 BP 143/88 H 07/03/22 11:43 Pulse Ox 97 07/03/22 11:43 O2 Del Method 07/03/22 11:43 O2 Flow Rate 2 06/23/22 18:17 BMI result Body Mass Index 47.5 Const: Other: Constitutional : Alert, oriented, not in distress Neck : Normal inspection, Supple Cardiovascular : RRR, no JVP, no lower extremity edema Respiratory : fair bilateral air entry, no crackles, wheezes or rhonchi Gastrointestinal: soft, lax, Normal bowel sounds, Non tender Skin : Warm, Dry Neurological : Alert & oriented x3, no noticeable weakness on the right-sided anymore, able to speak more, pronounce words correctly but having difficulties finding the right word Objective Data Active Medications Acetaminophen (Acetaminophen 325 Mg Tablet) 650 mg PO Q6H PRN PRN Reason: Pain, Mild (Pain Scale 1-3) Last Admin: 07/02/22 18:18 Dose: 650 mg Documented By: LOKESH Amitriptyline HCl (Amitriptyline Hcl 50 Mg Tablet) 100 mg PO BEDTIME [facility] Last Admin: 07/02/22 21:58 Dose: 100 mg Documented By: MAXI Enoxaparin Sodium (Enoxaparin Sodium 40 Mg/0.4 Ml Syringe) 40 mg SUBCUT Q24H [facility] Last Admin: 07/02/22 18:23 Dose: 40 mg Documented By: LOKESH Acyclovir Sodium 800 mg/ (Sodium Chloride) 266 mls @ 266 mls/hr IV Q8H [facility] Last Infusion: 07/03/22 11:44 Dose: 0 mls/hr Documented By: AMAN Lisinopril (Lisinopril 10 Mg Tablet) 10 mg PO DAILY [facility]; Protocol Last Admin: 07/01/22 08:55 Dose: 10 mg Documented By: ADOLFO Ondansetron HCl (Ondansetron Hcl 4 Mg/2 Ml Vial) 4 mg IVPUSH Q8H PRN PRN Reason: Nausea and Vomiting Pharmacy Consult (Consult Rx Vancomycin Dosing) 1 each MISCELLANE DAILY PRN PRN Reason: Consult order Sertraline HCl (Sertraline Hcl 25 Mg Tablet) 25 mg PO DAILY [facility] Last Admin: 07/03/22 10:09 Dose: 25 mg Documented By: AMAN Sodium Chloride (0.9 % Sodium Chloride Flush 3 Ml Syringe) 3 ml IVFLUSH [facility] Last Admin: 07/03/22 10:09 Dose: 3 ml Documented By: AMAN Sodium Chloride (0.9 % Sodium Chloride Flush 10 Ml Syringe) [facility] Last Admin: 07/03/22 10:09 Dose: 5 ml Documented By: AMAN Labs CBC & Chem 7: 07/01/22 06:36 07/02/22 08:36 Assessment and Plan (1) Toxic encephalopathy: Status: Acute (2) Global aphasia: Status: Acute Plan 37-year-old female PMH IVDA, depression, morbid obesity, HTN presented with SIRS, ams, and aphasia acute toxic metabolic encephalopathy and global aphasia concern for viral encephalitis, negative encephalitis screen improving slowly LP mildly elevated WBCs at 16, culture and pcr panel negative Pending west Nile iGM, anti-NMDA antibodies MRI showed 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 with mild deformity of the medial aspect of left thalamus and other findings, Neurology feels findings not related to presentation Neurology input appreciated, acyclovir for 2 weeks( finish 07/14), negative EEG , discontinue Keppra and repeat MRI Patient could not tolerate sitting still for the MRI, and refused LP Id recommended to repeat LP to confirm negative results for encephalitis panel Discontinue Keppra Occupational therapy Try MRI and LP by Tuesday HTN restart lisinopril morbid obesity weight loss depression amitryptilline history of IV opiate dependence Negative urine tox Full code Lovenox reason for continued inpatient hospitalization: on IV Acyclovir, pending Antibodies, repeat MRI & LP result to dictate treatment plan and safe discharge plan Quality Stroke Does the patient have a stroke diagnosis?: No VTE Prior VTE?: No VTE Risk Level:: Medical - moderate - high VTE Device Contraindication: Treatment Not Indicated VTE Drug Contraindication: N/A - Med Ordered
--- NOTE | 2022-07-03 13:40 | PC.NURSE ---
Upon checking in with patient, acyclovir tubing found on the floor disconnected via patient. Patient upset about having to be in hospital. Irritable, guarded, and tearful while explaining that she has a daughter to care for at home and that she wants to leave. Education about treatment plan and emotional support provided. MD Ivan. aware of event, acyclovir paused, and MD to bedside to speak with patient.
[2022-07-03 15:00] VITALS: BP 140/76; PULSE 100; RESP 18; TEMP 36.1; O2SAT 99
[2022-07-03] MEDS: hydrOXYzine HCL 50 MG TABLET PO (15:23)
[2022-07-03] MEDS: Enoxaparin Sodium 40 MG/0.4 ML SYRINGE SUBCUT (17:23)
[2022-07-03] MEDS: Heparin Sodium,Porcine Flush 50 UNITS, 0.9 % Sodium Chloride Flush 5 ML IVFLUSH (17:23)
[2022-07-03] MEDS: Acetaminophen 325 MG TABLET 650 MG PO (17:24)
--- NOTE | 2022-07-03 17:30 | PC.NURSE ---
At this time midline noted to be occluded, previously flushed and working well after patient refused Acyclovir IV infusion. Dr. Escobar and Dr. Perez aware of occluded midline- placed orders for heparin flush and cathflo- however cathflo not given because upon further inspection of midline when the dressing taken down, catheter itself was kinked. Catheter out of shape and bent and no longer usable. Patient currently does not have any IV access and missed dose of acyclovir- Dr. Perez aware.
[2022-07-03] MEDS: diphenhydrAMINE HCL 25 MG CAPSULE PO (17:35)
--- NOTE | 2022-07-03 17:53 | PC.NURSE ---
Patient c/o of vague sudden right flank pain, subjectively states pain is a 10/10 but appears comfortable, states it is tender upon palpation, however upon palpation, once again appears comfortable; given tylenol 650mg for pain and will continue to monitor; Dr. Perez aware at this time.
[2022-07-03 18:54] VITALS: BP 138/80; PULSE 101; RESP 18; TEMP 36.3; O2SAT 98
[2022-07-03] MEDS: Amitriptyline HCl 50 MG TABLET 100 MG PO (21:44)
--- NOTE | 2022-07-03 22:47 | PC.NURSE ---
Pt refuses to wear tele monitor. She also needs a new IV due to her midline being occluded however me and other nurse tried unsuccessfully to put an IV in and pt began crying. I let the overnight hospitalist know and charted against her acyclovir. said this is fine for now.
[2022-07-03 23:06] VITALS: BP 109/55; PULSE 93; RESP 20; TEMP 36.7; O2SAT 95
[2022-07-04 03:19] VITALS: BP 124/72; PULSE 87; RESP 18; TEMP 36.6; O2SAT 96
[2022-07-04 06:16] LABS: Hematocrit 40.7 % (37.0-47.0); Hemoglobin 13.8 g/dl (12.0-16.0); Mean Corpuscular HGB Conc 33.9 g/dl (31.0-35.0); Mean Corpuscular Hemoglobin 31.4 pg (27.0-33.0); Mean Corpuscular Volume 92.5 fL (80.0-98.0); Platelet Count 209 X10*3/uL (160-400); Red Cell Distribution Width 11.8 % (11.0-16.0); White Blood Count 5.4 X10*3/uL (4.8-10.8)
[2022-07-04 06:43] LABS: Anion Gap 20 (12-20); Blood Urea Nitrogen 12 mg/dL (9-16); Calcium 8.6 mg/dL (8.4-10.2); Carbon Dioxide 16 mmol/L (22-29); Chloride 108 mmol/L (96-108); Estimated Glomerular Filt Rate > 60; Glucose Random 103 mg/dL (60-115); Potassium 4.8 mmol/L (3.3-5.1); Sodium 139 mmol/L (135-145)
[2022-07-04 07:19] VITALS: BP 133/70; PULSE 89; RESP 20; TEMP 36.4; O2SAT 99
--- NOTE | 2022-07-04 07:48 | PC.NURSE ---
Patient refusing to wear telemetry any longer and refuses to place back on. Dr. Escobar aware at this time.
[2022-07-04] MEDS: Sertraline HCL 25 MG TABLET PO (09:08)
[2022-07-04] MEDS: Acetaminophen 325 MG TABLET 650 MG PO (09:08)
--- NOTE | 2022-07-04 10:28 | PC.NURSE ---
With permission of Dr. Escobar, patient's midline pulled at this time, and pressure dressing applied. IV access obtained.
[2022-07-04 11:20] VITALS: BP 134/83; PULSE 102; RESP 20; TEMP 35.8; O2SAT 97
--- NOTE | 2022-07-04 11:28 | HO.PM.IMPN ---
Subjective Subjective Date of Service: 07/04/22 Interval History: the patient was seen and evaluated this morning Sitting in her chair, less talkative than yesterday, father at bedside Lost IV access since last night, unable to take 2 doses of acyclovir Denies any fever, chills or headache or double vision No reported other overnight events Review of Systems No fever, chills or weakness No chest pain, palpitation No shortness of breath or coughing No abdominal pain, nausea or vomiting No urinary symptoms No rash or wounds Physical Exam Vital Signs: Vital Signs: Last Vital Signs Temp 96.4 F L 07/04/22 11:20 Pulse 102 H 07/04/22 11:20 Resp 20 07/04/22 11:20 BP 134/83 07/04/22 11:20 Pulse Ox 97 07/04/22 11:20 O2 Del Method 07/04/22 11:20 O2 Flow Rate 2 06/23/22 18:17 BMI result Body Mass Index 47.5 Const: Other: Constitutional : Alert, oriented, not in distress Neck : Normal inspection, Supple Cardiovascular : RRR, no JVP, no lower extremity edema Respiratory : fair bilateral air entry, no crackles, wheezes or rhonchi Gastrointestinal: soft, lax, Normal bowel sounds, Non tender Skin : Warm, Dry Neurological : Alert & oriented x3, no noticeable weakness on the right-sided anymore, able to speak more, pronounce words correctly but having difficulties finding the right word Objective Data Active Medications Acetaminophen (Acetaminophen 325 Mg Tablet) 650 mg PO Q6H PRN PRN Reason: Pain, Mild (Pain Scale 1-3) Last Admin: 07/04/22 09:08 Dose: 650 mg Documented By: AMAN Amitriptyline HCl (Amitriptyline Hcl 50 Mg Tablet) 100 mg PO BEDTIME [facility] Last Admin: 07/03/22 21:44 Dose: 100 mg Documented By: MAXI Heparin Sodium (Porcine) 50 (units/ Sodium Chloride 5 ml) 0 units IVFLUSH QSHIFT [facility] Last Admin: 07/04/22 07:50 Dose: Not Given Documented By: AMAN Non-Admin Reason: IV kinked Enoxaparin Sodium (Enoxaparin Sodium 40 Mg/0.4 Ml Syringe) 40 mg SUBCUT Q24H [facility] Last Admin: 07/03/22 17:23 Dose: 40 mg Documented By: AMAN Hydroxyzine HCl (Hydroxyzine Hcl 50 Mg Tablet) 50 mg PO TID PRN PRN Reason: anxiety Last Admin: 07/03/22 15:23 Dose: 50 mg Documented By: AMAN Acyclovir Sodium 800 mg/ (Sodium Chloride) 266 mls @ 266 mls/hr IV Q8H [facility] Last Admin: 07/04/22 10:34 Dose: 266 mls/hr Documented By: AMAN Lisinopril (Lisinopril 10 Mg Tablet) 10 mg PO DAILY [facility]; Protocol Last Admin: 07/01/22 08:55 Dose: 10 mg Documented By: ADOLFO Ondansetron HCl (Ondansetron Hcl 4 Mg/2 Ml Vial) 4 mg IVPUSH Q8H PRN PRN Reason: Nausea and Vomiting Sertraline HCl (Sertraline Hcl 25 Mg Tablet) 25 mg PO DAILY [facility] Last Admin: 07/04/22 09:08 Dose: 25 mg Documented By: AMAN Sodium Chloride (0.9 % Sodium Chloride Flush 3 Ml Syringe) 3 ml IVFLUSH [facility] Last Admin: 07/04/22 07:50 Dose: Not Given Documented By: AMAN Non-Admin Reason: No Access Sodium Chloride (0.9 % Sodium Chloride Flush 10 Ml Syringe) 5 ml IVFLUSH [facility] Last Admin: 07/04/22 07:50 Dose: Not Given Documented By: AMAN Non-Admin Reason: No Access Labs CBC & Chem 7: 07/04/22 06:03 07/04/22 06:03 Labs: Laboratory Results - last 24 hr 07/04/22 07/04/22 06:03 06:03 MCV 92.5 MCH 31.4 MCHC 33.9 RDW 11.8 Plt Count 209 D MPV 11.0 Absolute Nucleated RBC 0.000 Nucleated RBC % (auto) 0.0 Anion Gap 20 Estim Creat Clear Calc 131.0 Estimated GFR > 60 Random Glucose 103 Calcium 8.6 Assessment and Plan (1) Toxic encephalopathy: Status: Acute (2) Encephalitis: Status: Acute (3) Global aphasia: Status: Acute Plan 37-year-old female PMH IVDA, depression, morbid obesity, HTN presented with SIRS, ams, and aphasia acute toxic metabolic encephalopathy and global aphasia Likely secondary to viral encephalitis, negative encephalitis screen though improving slowly LP mildly elevated WBCs at 16, culture and pcr panel negative Pending west Nile iGM, anti-NMDA antibodies MRI showed 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 with mild deformity of the medial aspect of left thalamus and other findings, Neurology feels findings not related to presentation Neurology input appreciated, acyclovir for 2 weeks( finish 07/14), negative EEG , discontinue Keppra and repeat MRI Id recommended to repeat LP to confirm negative results for encephalitis panel Patient could not tolerate sitting still for the MRI, and refused LP Repeat MRI tomorrow Patient refusing to repeat LP IV access problem Midline clogged, removed To place a new midline tomorrow HTN restart lisinopril morbid obesity weight loss depression amitryptilline history of IV opiate dependence Negative urine tox Full code Lovenox reason for continued inpatient hospitalization: on IV Acyclovir, pending Antibodies, repeat MRI & LP result to dictate treatment plan and safe discharge plan Quality Stroke Does the patient have a stroke diagnosis?: No VTE Prior VTE?: No VTE Risk Level:: Medical - moderate - high VTE Device Contraindication: Treatment Not Indicated VTE Drug Contraindication: N/A - Med Ordered
[2022-07-04 15:03] VITALS: BP 146/118; PULSE 95; RESP 18; TEMP 36; O2SAT 98
[2022-07-04] MEDS: Enoxaparin Sodium 40 MG/0.4 ML SYRINGE SUBCUT (16:03)
[2022-07-04] MEDS: 0.9 % Sodium Chloride Flush 10 ML SYRINGE 5 ML IVFLUSH (16:04)
[2022-07-04] MEDS: 0.9 % Sodium Chloride Flush 3 ML SYRINGE IVFLUSH ×2 (16:04→23:39)
[2022-07-04 19:26] VITALS: BP 128/70; PULSE 108; RESP 18; TEMP 36.4; O2SAT 97
[2022-07-04] MEDS: Amitriptyline HCl 50 MG TABLET 100 MG PO (19:48)
[2022-07-04 23:17] VITALS: BP 127/63; PULSE 81; RESP 18; TEMP 36.7; O2SAT 98
[2022-07-05 03:31] VITALS: BP 126/65; PULSE 86; RESP 15; O2SAT 98
[2022-07-05 03:33] VITALS: BP 123/71; PULSE 97; RESP 14; TEMP 36.3; O2SAT 93
[2022-07-05 07:39] VITALS: BP 119/58; PULSE 94; RESP 18; TEMP 36.6; O2SAT 98
[2022-07-05] MEDS: Sertraline HCL 25 MG TABLET PO (07:39)
[2022-07-05] MEDS: 0.9 % Sodium Chloride Flush 3 ML SYRINGE IVFLUSH ×3 (07:41→23:10)
[2022-07-05] MEDS: Acetaminophen 325 MG TABLET 650 MG PO ×2 (07:44→17:19)
[2022-07-05] MEDS: Midazolam HCl/PF 2 MG/2 ML VIAL 4 MG IVPUSH (10:34)
--- NOTE | 2022-07-05 12:09 | HO.PM.IMPN ---
Subjective Subjective Date of Service: 07/05/22 Interval History: the patient was seen and evaluated this morning Sitting in her chair, talkative and excited about going home maybe tomorrow Waiting placement of PICC line and repeat MRI Denies any fever, chills or headache or double vision No reported other overnight events Review of Systems No fever, chills or weakness No chest pain, palpitation No shortness of breath or coughing No abdominal pain, nausea or vomiting No urinary symptoms No rash or wounds Physical Exam Vital Signs: Vital Signs: Last Vital Signs Temp 97.8 F 07/05/22 07:39 Pulse 94 07/05/22 07:39 Resp 18 07/05/22 07:39 BP 119/58 L 07/05/22 07:39 Pulse Ox 98 07/05/22 07:39 O2 Del Method 07/05/22 07:39 O2 Flow Rate 2 06/23/22 18:17 BMI result Body Mass Index 47.5 Const: Other: Constitutional : Alert, oriented, not in distress Neck : Normal inspection, Supple Cardiovascular : RRR, no JVP, no lower extremity edema Respiratory : fair bilateral air entry, no crackles, wheezes or rhonchi Gastrointestinal: soft, lax, Normal bowel sounds, Non tender Skin : Warm, Dry Neurological : Alert & oriented x3, no noticeable weakness on the right-sided anymore, able to speak more, pronounce words correctly but having difficulties finding the right word Objective Data Active Medications Acetaminophen (Acetaminophen 325 Mg Tablet) 650 mg PO Q6H PRN PRN Reason: Pain, Mild (Pain Scale 1-3) Last Admin: 07/05/22 07:44 Dose: 650 mg Documented By: SASHA Amitriptyline HCl (Amitriptyline Hcl 50 Mg Tablet) 100 mg PO BEDTIME [facility] Last Admin: 07/04/22 19:48 Dose: 100 mg Documented By: LISA Heparin Sodium (Porcine) 50 (units/ Sodium Chloride 5 ml) 0 units IVFLUSH QSHIFT [facility] Last Admin: 07/05/22 07:36 Dose: Not Given Documented By: SASHA Non-Admin Reason: no midline Enoxaparin Sodium (Enoxaparin Sodium 40 Mg/0.4 Ml Syringe) 40 mg SUBCUT Q24H [facility] Last Admin: 07/04/22 16:03 Dose: 40 mg Documented By: AMAN Hydroxyzine HCl (Hydroxyzine Hcl 50 Mg Tablet) 50 mg PO TID PRN PRN Reason: anxiety Last Admin: 07/03/22 15:23 Dose: 50 mg Documented By: AMAN Acyclovir Sodium 800 mg/ (Sodium Chloride) 266 mls @ 266 mls/hr IV Q8H [facility] Last Infusion: 07/05/22 05:08 Dose: 0 mls/hr Documented By: LISA Lisinopril (Lisinopril 10 Mg Tablet) 10 mg PO DAILY [facility]; Protocol Last Admin: 07/01/22 08:55 Dose: 10 mg Documented By: ADOLFO Midazolam HCl (Midazolam Hcl/Pf 2 Mg/2 Ml Vial) 4 mg IVPUSH ONCE PRN PRN Reason: Pre MRI: give on the MRI table Last Admin: 07/05/22 10:34 Dose: 4 mg Documented By: LOKESH Ondansetron HCl (Ondansetron Hcl 4 Mg/2 Ml Vial) 4 mg IVPUSH Q8H PRN PRN Reason: Nausea and Vomiting Sertraline HCl (Sertraline Hcl 25 Mg Tablet) 25 mg PO DAILY [facility] Last Admin: 07/05/22 07:39 Dose: 25 mg Documented By: SASHA Sodium Chloride (0.9 % Sodium Chloride Flush 3 Ml Syringe) 3 ml IVFLUSH [facility] Last Admin: 07/05/22 07:41 Dose: 3 ml Documented By: SASHA Sodium Chloride (0.9 % Sodium Chloride Flush 10 Ml Syringe) [facility] Last Admin: 07/05/22 07:37 Dose: Not Given Documented By: SASHA Non-Admin Reason: no midline Labs CBC & Chem 7: 07/04/22 06:03 07/04/22 06:03 Assessment and Plan (1) Toxic encephalopathy: Status: Acute (2) Encephalitis: Status: Acute (3) Global aphasia: Status: Acute Plan 37-year-old female PMH IVDA, depression, morbid obesity, HTN presented with SIRS, ams, and aphasia acute toxic metabolic encephalopathy and global aphasia Likely secondary to viral encephalitis, negative encephalitis screen though improving slowly LP mildly elevated WBCs at 16, culture and pcr panel negative Pending west Nile iGM, anti-NMDA antibodies MRI showed 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 with mild deformity of the medial aspect of left thalamus and other findings, Neurology feels findings not related to presentation Neurology input appreciated, acyclovir for 2 weeks( finish 07/14), negative EEG , discontinue Keppra and repeat MRI Id recommended to repeat LP to confirm negative results for encephalitis panel Patient could not tolerate sitting still for the MRI, and refused LP Repeat MRI today Patient refusing to repeat LP IV access problem Midline clogged, removed To place a new midline tomorrow HTN restart lisinopril morbid obesity weight loss depression amitryptilline history of IV opiate dependence Negative urine tox Full code Lovenox reason for continued inpatient hospitalization: on IV Acyclovir, pending Antibodies, repeat MRI & PICC line placement to dictate treatment plan and safe discharge plan Quality Stroke Does the patient have a stroke diagnosis?: No VTE Prior VTE?: No VTE Risk Level:: Medical - moderate - high VTE Device Contraindication: Treatment Not Indicated VTE Drug Contraindication: N/A - Med Ordered
[2022-07-05 15:48] VITALS: BP 142/91; PULSE 100; RESP 16; TEMP 36.3; O2SAT 97
--- NOTE | 2022-07-05 16:12 | MHC.SLD.DC ---
Addendum entered and electronically signed by Negra Huntley MA, CCC-RAMP FLIGHT ATTENDANT 07/05/22 16:59: D.S. Original Note: Date of Plan of Treatment: 06/29/22 Onset of Symptoms/Illness: 06/29/22 Date Treatment Started: 06/29/22 Medical Diagnosis: SIRS w/ acute metabolic encephalopathy and aphasia. 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 mri findings not related to presentation Primary Speech Language Diagnosis: R47.01 Aphasia Secondary Speech Language Diagnosis: R13.10 Dysphagia Date Discharged from Speech: N/A Pt w/ SIRS encephalopathy, may improve with cessation of symptoms. Treatment: Checked in w/ RN upon arrival; RN reported no difficulty with swallowing, mentioned difficulty with word finding. Pt significantly more talkative today in comparison with last week. Pt's family present at bedside. In conversation, word finding difficulty observed. At times, pt required 5 or 10 second pause in conversation to think of word. Pt's family member reported that sometimes when pt is unable to think of a word, she will describe it. RAMP FLIGHT ATTENDANT screened pt for speech and language. Pt's performance of speech & language screening as follows: -Object namin/14 independently, 1 word required 5 sec delay (bed). / words named w/ minimal to moderate support (i.e. phonemic cue): chair, watch, elbow. Chair initially produced couch then crunch. When provided with phonemic cue CH patient immediate produced chair. Patient produced the word pen when shown a cellphone several times, when shown the phone in the hospital room, pt produced word phone. -Auditory verbal comprehension Y/N questions with 100% accuracy (06/07). -Responsive namin/10. When asked what color is snow? pt responded 4. When asked again with the word color emphasized, pt responded I don't know ... 10? Pt responded gold to what color is coal? Pt was observed to answer what color is this shirt? accurately -Sentence completion: 02/05. Pt responded I don't know to the following prompts sugar is ___, pass the salt and ___, and sweep the ___. When given the prompt sing a __, pt responded I don't know any numbers. When prompted, fill in the blank of this sentence... sing a __ pt responded I don't know. -Automatic language: Pt provided days of week and months of year with 100% accuracy and without much hesitation or delay. When asked pt's birthdate, patient stated [birth year]. Patient's birthday is [birth year]. Pt appeared frustrated throughout language screening. Pt resents with difficulty word finding benefitting from cues, specifically phonemic cues. Recommend speech therapy at next level of care. Graphic Editor Clinician/Clinical Fellow: Yes: Charissa Gonzales M.A., CF-RAMP FLIGHT ATTENDANT I have reviewed/agreed with student/fellow documentation: N/A Speech/Language Pathologist: Negra Huntley M.A., CCC-RAMP FLIGHT ATTENDANT
--- NOTE | 2022-07-05 17:31 | MHC.SL.SWA ---
Addendum entered and electronically signed by Negra Huntley MA, CCC-MANAGER OF COMPENSATION 07/05/22 17:56: D.S. Original Note: Risk of Aspiration Due to: Neurological Condition Dysphasia Diet Status: Recommend speech therapy at next level of care after discharge. MANAGER OF COMPENSATION will continue to follow pt daily M-F for speech therapy at bedside during hospitalization. Liquid Consistency and Strategies for Safe Swallow: Liquid Intake Recommendation: Thin Liquid Intake Strategies: Small Sips Solid Food Consistency: Dietary Recommendations: Regular Additional Modifications to Solid Foods: Oral Medication Intake: Whole with Liquid Please contact the pharmacy regarding appropriate crushable or liquid drug formulations that are available whenever modified delivery is recommended. Compensatory Strategies and Precautions to be Taken for Safe Swallow: Sitting Upright (90 deg) Small Bites and Sips Alternate Liquids/Solids Rate of Ingestion Change Supervision While Eating and Drinking for Safe Swallow: Intermittent Supervision Foods to Avoid: Swallowing Recommended Treatments: Compens. Strategy Educat. Recommendation for Speech: Inpatient Speech Therapy Outpatient speech therapy Speech Therapy through Rehab Facility Comment: Pt tolerated trials of regular solids. Swallow WFL. Recommend UPGRADE to REGULAR solids. Continue with thin liquids. Pt to continue to be seen by MANAGER OF COMPENSATION for language tx. Sent update to RN and MD via [employer]. Technical Advisor Clinican/Clinical Fellow: Yes: Charissa Gonzales M.A., -MANAGER OF COMPENSATION Supervisory Statement: I have reviewed and agree with the student/clinical fellow's documentation: Yes Speech Language Pathologist: Negra Huntley M.A., [facility]-MANAGER OF COMPENSATION
[2022-07-05] MEDS: hydrOXYzine HCL 50 MG TABLET PO (17:32)
[2022-07-05] MEDS: Enoxaparin Sodium 40 MG/0.4 ML SYRINGE SUBCUT (18:11)
[2022-07-05 19:16] VITALS: BP 143/92; PULSE 116; RESP 15; TEMP 36.1; O2SAT 96
[2022-07-05] MEDS: Amitriptyline HCl 50 MG TABLET 100 MG PO (20:04)
[2022-07-05] MEDS: Zolpidem Tartrate 5 MG TABLET PO (20:04)
[2022-07-06] VITALS: BP 119/64; PULSE 100; RESP 20; TEMP 36.4; O2SAT 97
[2022-07-06 03:37] VITALS: BP 144/74; PULSE 114; RESP 16; TEMP 36.6; O2SAT 97
[2022-07-06] MEDS: Acetaminophen 325 MG TABLET 650 MG PO ×2 (04:52→11:55)
[2022-07-06 07:13] VITALS: BP 119/58; PULSE 99; RESP 18; TEMP 36.8; O2SAT 95
[2022-07-06] MEDS: Sertraline HCL 25 MG TABLET PO (09:21)
[2022-07-06] MEDS: hydrOXYzine HCL 50 MG TABLET PO (09:22)
[2022-07-06 11:21] LABS: Anion Gap 15 (12-20); Blood Urea Nitrogen 11 mg/dL (9-16); Carbon Dioxide 21 mmol/L (22-29); Chloride 107 mmol/L (96-108); Creatinine Clr Calc Pharmacy 127.8; Estimated Glomerular Filt Rate > 60; Glucose Random 105 mg/dL (60-115); Potassium 4.2 mmol/L (3.3-5.1); Sodium 139 mmol/L (135-145)
--- NOTE | 2022-07-06 11:40 | HO.MIDLINE_ITS ---
Midline Insertion MIDLINE INSERTION Diagnosis: Mental Status Changes Indication: IV medications needed Pertinent Labs: reviewed Technique: Using sterile technique including cap and mask, glove and drape, the left arm was prepped and draped in the usual sterile fashion of full barrier technique with CHG. Using ultrasound guidance, left cephalic vein access was obtained twice, but unable to place midline. Sterile field was broken down and a new procedure was started using the above mentioned technique. Using ultrasound guidance, left basilic vein access was obtained on first attempt. A 20G X 10CM NON-PASV Midline was positioned. The procedure was performed in S272. Ultrasound was used to document vein patency and for needle entry. A formal ultrasound picture was recorded. [employer] Faculty Member has released the line for use and it is currently dressed with a StatLock, Tegaderm, and CHG disc. Verification has been performed for blood return and line patency. Arm Circumference: 38 CM Equipment: BARD PowerGlide ST Midline Catheter Type: [id number] NON-PASV Midline Lot #: [id number]
[2022-07-06 11:59] VITALS: BP 133/84; PULSE 91; RESP 18; TEMP 36.9; O2SAT 98
--- NOTE | 2022-07-06 12:07 | HO.PM.IMPN ---
Subjective Subjective Date of Service: 07/06/22 Interval History: the patient was seen and evaluated this morning Sitting in her chair, excited about going home maybe later today or tomorrow Plan for placement of PICC line No reported other overnight events Review of Systems No fever, chills or weakness No chest pain, palpitation No shortness of breath or coughing No abdominal pain, nausea or vomiting No urinary symptoms No rash or wounds Physical Exam Vital Signs: Vital Signs: Last Vital Signs Temp 98.4 F 07/06/22 11:59 Pulse 91 07/06/22 11:59 Resp 18 07/06/22 11:59 BP 133/84 07/06/22 11:59 Pulse Ox 98 07/06/22 11:59 O2 Del Method 07/06/22 11:59 O2 Flow Rate 2 06/23/22 18:17 BMI result Body Mass Index 47.5 Const: Other: Constitutional : Alert, oriented, not in distress Neck : Normal inspection, Supple Cardiovascular : RRR, no JVP, no lower extremity edema Respiratory : fair bilateral air entry, no crackles, wheezes or rhonchi Gastrointestinal: soft, lax, Normal bowel sounds, Non tender Skin : Warm, Dry Neurological : Alert & oriented x3, good strength and power bilaterally, able to speak more, pronounce words correctly but having difficulties finding the right word sometimes Objective Data Active Medications Acetaminophen (Acetaminophen 325 Mg Tablet) 650 mg PO Q6H PRN PRN Reason: Pain, Mild (Pain Scale 1-3) Last Admin: 07/06/22 11:55 Dose: 650 mg Documented By: VAISHNAVI Amitriptyline HCl (Amitriptyline Hcl 50 Mg Tablet) 100 mg PO BEDTIME [facility] Last Admin: 07/05/22 20:04 Dose: 100 mg Documented By: LISA Heparin Sodium (Porcine) 50 (units/ Sodium Chloride 5 ml) 0 units IVFLUSH QSHIFT [facility] Last Admin: 07/06/22 09:28 Dose: Not Given Documented By: VAISHNAVI Non-Admin Reason: no midline Enoxaparin Sodium (Enoxaparin Sodium 40 Mg/0.4 Ml Syringe) 40 mg SUBCUT Q24H [facility] Last Admin: 07/05/22 18:11 Dose: 40 mg Documented By: SASHA Hydroxyzine HCl (Hydroxyzine Hcl 50 Mg Tablet) 50 mg PO TID PRN PRN Reason: anxiety Last Admin: 07/06/22 09:22 Dose: 50 mg Documented By: VAISHNAVI Acyclovir Sodium 800 mg/ (Sodium Chloride) 266 mls @ 266 mls/hr IV Q8H [facility] Last Admin: 07/06/22 11:56 Dose: 266 mls/hr Documented By: VAISHNAVI Lisinopril (Lisinopril 10 Mg Tablet) 10 mg PO DAILY [facility]; Protocol Last Admin: 07/01/22 08:55 Dose: 10 mg Documented By: ADOLFO Midazolam HCl (Midazolam Hcl/Pf 2 Mg/2 Ml Vial) 4 mg IVPUSH ONCE PRN PRN Reason: Pre MRI: give on the MRI table Last Admin: 07/05/22 10:34 Dose: 4 mg Documented By: LOKESH Ondansetron HCl (Ondansetron Hcl 4 Mg/2 Ml Vial) 4 mg IVPUSH Q8H PRN PRN Reason: Nausea and Vomiting Sertraline HCl (Sertraline Hcl 25 Mg Tablet) 25 mg PO DAILY [facility] Last Admin: 07/06/22 09:21 Dose: 25 mg Documented By: VAISHNAVI Sodium Chloride (0.9 % Sodium Chloride Flush 3 Ml Syringe) 3 ml IVFLUSH [facility] Last Admin: 07/06/22 09:26 Dose: Not Given Documented By: VAISHNAVI Non-Admin Reason: pt refused, c/o pain at site Sodium Chloride (0.9 % Sodium Chloride Flush 10 Ml Syringe) 5 ml IVFLUSH QSWAFT [facility] Last Admin: 07/06/22 09:26 Dose: Not Given Documented By: VAISHNAVI Non-Admin Reason: No midline Zolpidem Tartrate (Zolpidem Tartrate 5 Mg Tablet) 5 mg PO BEDTIME [facility] Last Admin: 07/05/22 20:04 Dose: 5 mg Documented By: LISA Labs CBC & Chem 7: 07/04/22 06:03 07/06/22 06:45 Labs: Laboratory Results - last 24 hr 07/06/22 06:45 Anion Gap 15 Estim Creat Clear Calc 127.8 Estimated GFR > 60 Random Glucose 105 Calcium 9.0 Assessment and Plan (1) Toxic encephalopathy: Status: Acute (2) Global aphasia: Status: Acute (3) Encephalitis: Status: Acute Plan 37-year-old female PMH IVDA, depression, morbid obesity, HTN presented with SIRS, ams, and aphasia acute toxic metabolic encephalopathy and global aphasia Likely secondary to viral encephalitis, negative encephalitis screen though improving slowly LP mildly elevated WBCs at 16, culture and pcr panel negative Pending west Nile iGM, anti-NMDA antibodies MRI showed 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 with mild deformity of the medial aspect of left thalamus and other findings, Neurology feels findings not related to presentation Neurology input appreciated, acyclovir for 2 weeks( finish 07/14), negative EEG , discontinue Keppra and repeat MRI Id recommended to repeat LP to confirm negative results for encephalitis panel Refused to repeat LP Repeated MRI did not show any acute findings with minimal nonspecific white matter signal changes with lot of motion artifact IV access problem To place a new midline today HTN restart lisinopril morbid obesity weight loss depression amitryptilline history of IV opiate dependence Negative urine tox Full code Lovenox reason for continued inpatient hospitalization: on IV Acyclovir, pending Antibodies, repeat MRI & PICC line placement to dictate treatment plan and safe discharge plan Quality Stroke Does the patient have a stroke diagnosis?: No VTE Prior VTE?: No VTE Risk Level:: Medical - moderate - high VTE Device Contraindication: Treatment Not Indicated VTE Drug Contraindication: N/A - Med Ordered
--- NOTE | 2022-07-06 12:56 | PC.NURSE ---
Addendum entered by Rachael Das RN 07/06/22 15:36: father and mother at bedside with pt, discharge education given to parents as well as pt. Verbalized understanding and stated all questions answered. Pt belongings returned. Addendum entered by Rachael Das RN 07/06/22 14:30: pt due to be discharged today, education related to midline care and medication given by [facility] . Discharge education given to pt, verbalized understanding and stated no further questions''. Heparin flushed midline, pt's father to transport her home. Original Note: report received from overnight RN. Pt down to get midline placed at 0930, requested PRN atarax before procedure. clerical and administrative workers per OCT. Pt back to the floor at 1130, c/o pain to her lower back. clerical and administrative workers per OCT. Call ludwig within reach, camera in room, pt encouraged to call for assistance, hourly rounding and safety precautions in place.
--- NOTE | 2022-07-06 14:13 | P.DS_ITS ---
DS: Providers Provider Date of Service: 07/06/22 Date of admission: 06/23/22 18:26 Primary care physician: Unknown Physician Consults: 06/24/22 11:16 Consult to Neurology Stat Consulting Provider: [facility] [place] [facility] Reason for consultation: altered mental status Has provider been notified: No 06/24/22 14:01 Consult to Infectious Diseases Stat Consulting Provider: Sayra Darling Reason for consultation: Altered mental status Has provider been notified: No DS: Diagnosis Discharge Diagnosis (1) Toxic encephalopathy: Status: Acute (2) Global aphasia: Status: Acute (3) Encephalitis: Status: Acute (4) Encephalopathy acute: Status: Acute DS: Summary Hospital Course Hospital Course: Admission note HPI All information gleaned from chart and staff as patient is somnolent but arousable.? Family states patient woke up around 01:00 this morning vomiting; they also noted her to to be confused and nonsensical which is not her baseline.? She was having difficulty ambulating was able to get to the car with assistance.? Family states she also complained of low back pain in the absence of injury.? In the emergency room, she was confused and rambling.? Workup in the emergency room including abdominal pelvis CT/head CT/checks x-ray failed to demonstrate any acute pathology.? [place] [id number] in and otherwise unremarkable chemistries.? Urinalysis was bland.? Lumbar puncture was done and demonstrated 16 wbc's per high-power field.? Cultures pending.? She was treated empirically with ceftriaxone/vancomycin/acyclovir pending cultures Hospital course The patient was admitted for evaluation of acute toxic metabolic encephalopathy and global aphasia. Believed to be the secondary to viral encephalitis, negative encephalitis screen though. The patient had lumbar puncture done at time of presentation with mildly elevate d WBCs at 16, culture and pcr panel negative. Pending west Nile iGM, anti-NMDA antibodies. 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 Started with treatment of vancomycin, ceftriaxone and acyclovir per guidelines with addition of Keppra for possible underlying seizure disorder.. Evaluated by Infectious Disease specialist who recommended to discontinue all previous meds with no evidence of infection. Neurology recommended treatment with acyclovir for 2 weeks( finish 07/14) in spite of negative encephalitis panel as EEG turned out to be negative and Keppra was discontinued with no changes of mentation. Repeated MRI had lot of artifact but no acute findings reported. Id recommended to repeat LP to confirm negative results for encephalitis panel but the patient refused to do it. A midline was placed to finish treatment with acyclovir for 8 days with a plan to follow-up with Neurology as outpatient. Continue acyclovir for 8 more days to finish 2 weeks of treatment Start sertraline To follow-up with Dr. Norman from Neurology in 2 weeks after calling for an appointment Continue speech therapy as outpatient Time Spent with Patient Time attestation: Total time spent providing and/or coordinating discharge services: Discharge coordination time: Greater than 30 minutes Quality: Safe Use of Opioids Does Pt have an Active Cancer Diagnosis on the Problem List?: No Quality: Stroke Does the patient have a stroke diagnosis?: No Physical Exam Vital Signs: Vital Signs: Last Vital Signs Temp 98.4 F 07/06/22 11:59 Pulse 91 07/06/22 11:59 Resp 18 07/06/22 11:59 BP 133/84 07/06/22 11:59 Pulse Ox 98 07/06/22 11:59 O2 Del Method 07/06/22 11:59 O2 Flow Rate 2 06/23/22 18:17 BMI result Body Mass Index 47.5 Const: Other: Constitutional : Alert, oriented, not in distress Neck : Normal inspection, Supple Cardiovascular : RRR, no JVP, no lower extremity edema Respiratory : fair bilateral air entry, no crackles, wheezes or rhonchi Gastrointestinal: soft, lax, Normal bowel sounds, Non tender Skin : Warm, Dry Neurological : Alert & oriented x3, good strength and power bilaterally, able to speak more, pronounce words correctly but having difficulties finding the right word sometimes DS: Data Data Completed and Pending Labs on day of discharge: Laboratory Results - last 24 hr 07/06/22 06:45 Sodium 139 Potassium 4.2 Chloride 107 Carbon Dioxide 21 L Anion Gap 15 BUN 11 Creatinine 0.81 Estim Creat Clear Calc 127.8 Estimated GFR > 60 Random Glucose 105 Calcium 9.0 Imaging MRI - head: Radiologist's impression: ITS Impressions Head CT 06/23/22 11:22 IMPRESSION: No acute intracranial pathology. Abdomen/Pelvis CT 06/23/22 14:05 IMPRESSION: No acute abnormality. No bowel obstruction. Fleischner guidelines were followed. Chest X-Ray 06/23/22 17:50 IMPRESSION: Hypoexpanded but otherwise no evidence of acute disease. Brain MRI 06/25/22 16:08 IMPRESSION: No acute infarct, mass lesion, intracranial hemorrhage, or evidence of hydrocephalus. 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 Given the mass effect, follow-up/surveillance is recommended. Brain MRI 07/05/22 11:06 IMPRESSION: Limited study with motion artifacts. No acute process. Minimal nonspecific white matter signal changes. No abnormal enhancement. Discharge Plan Discharge Anticipated Discharge Date/Time: 07/06/22 14:06 Patient Disposition: Home Health Service Discharge Diagnosis: Global aphasia encephalitis Referrals: Physician,Unknown J [Primary Care Provider] - 1 Week Discharge Medications: New acyclovir sodium 50 mg/mL solution 800 mg IV Q8H 8 Days Qty: 384 0RF sertraline 25 mg Tablet 25 mg PO DAILY Qty: 30 0RF Continued ibuprofen 800 mg tablet 1 tab PO Q8H PRN (Reason: pain) tizanidine 4 mg tablet 1 tab PO Q6H PRN (Reason: muscle spasm) hydroxyzine HCl 50 mg tablet 1 tab PO TID PRN (Reason: anxiety) tramadol 50 mg tablet 1 tab PO Q6H PRN (Reason: pain) lisinopril 10 mg tablet 1 tab PO DAILY amitriptyline 100 mg tablet 1 tab PO BEDTIME Discharge Orders: Discharge Order (Routine); Ordered 07/06/22 Ordered By: Luis Escobar Diet: Advance to usual diet Activity on Discharge: As tolerated Stand Alone Forms: Patient Portal Discharge page Care Plan Goals: Read below Health Concerns: Read below Plan of Treatment: Read below Assessment: You were admitted to the hospital for evaluation of altered mentation and inability to speak. Evaluated with brain images that did not show any significant abnormality. Lumbar tap was done showing elevated white blood cells. Evaluated by Neurology and Infectious Disease specialist as you were treated with IV antibiotics, antiviral and seizure medications with good response over the course of hospital stay as an EEG was negative for any seizure disorder. Continue acyclovir for 8 more days to finish 2 weeks of treatment Start sertraline To follow-up with Dr. Norman from Neurology in 2 weeks after calling for an appointment Continue speech therapy as outpatient
[2022-07-06] MEDS: Heparin Sodium,Porcine Flush 50 UNITS, 0.9 % Sodium Chloride Flush 5 ML IVFLUSH (14:15)
--- NOTE | 2022-07-06 14:23 | P.F2F_ITS ---
Service Date Service Date: 07/06/22 Encounter Date of encounter: 07/06/22 Reasons for Services Signs and symptoms assessed: Encephalitis on IV acyclovir Reason for residential: central line care and medication treatment Reason for speech therapy: speech impairment and cognitive impairment Homebound: Leaving the home is medically contraindicated at this time without the asist of a device and/or another person due th the listed conditions above and below. Reason homebound: other Certification: Based on the above findings, I certify that this patient is confined to the home and needs intermittent residential care, physical therapy and/or speech therapy, or continues to need occupational therapy. The patient is under my care, and I have initiated the establishment of the plan of care. The patient will be followed by a physician who will periodically review the plan of care.
--- NOTE | 2022-07-06 14:53 | MHC.SL.SOA ---
Referring Provider: Dr. Reyes Reason for Referral: Aphasia Date of Plan of Treatment:06/29/22 Onset of Symptoms/Illness:06/29/22 Date Treatment Started:06/29/22 Medical Diagnosis:SIRS w/ acute metabolic encephalopathy and aphasia. 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 mri findings not related to presentation Primary Speech Language Diagnosis:R47.01 Aphasia Secondary Speech Language Diagnosis:R13.10 Dysphagia Number of Authorized Visits Remaining: Authorization End Date: Reason for Visit:[id number] Individual Treatment Other: Subjective:Pt was seen at bedside by speech pathologist this afternoon. Patient is pending discharge home with follow up VNA rehab services to be provided in the home, including Speech/Language [place]. Patient was sitting in cardiac chair, watching TV at onset. Pt expressed some frustration with being in hospital, expressed that she did not know what was wrong with her, although recalled being unable to walk before being admitted to the hospital. Patient stated that she feels confused, has difficulty expressing herself, recalling words, including, at times family member's names. Objective: Pt was given subtests of the Western Aphasia Battery to update/screen language function. Repetition: On repetition of words and phrases, Patient was accurate on all words and short phrases. On longer sentences, patient evidenced paraphasia substitutes for some of the words altering the content of the sentence significantly. Sentence Completion: Patient was able to complete familiar phrases providing the missing word in 5/5 contexts. Responsive Speech: Patient was able to provide word when given functional description in 5/5 contexts. Object naming: Patient was able to name 4/6 drawings of familiar objects. When given phonemic prompt, patient labeled 1/2 missed items. Word Fluency: in open set naming by category ( name as many animals as you can think of ) Patient named 12 items in one minute (target=20) with increasing struggle/evident frustration as activity progressed. Spontaneous speech/picture description: When asked to give a complete description of a pictured scene, patient noted to piecemeal label parts of the scene (e.g. [place], boat, kids playing... ) with paucity of words and expression, though using true words. Assessment:Patient has made significant progress with language/communication, but continues to demonstrate word finding issues in connected speech, occasional use of paraphasia, difficulty organizing language for expression, consistent with a mild to moderate expressive aphasia. Patient expresses that she struggles for words, feels confused, has difficulty recalling information and details. Notes: Recommend speech therapy at next level of care after discharge. Plan: Goal # : Status of Goal: Goal # : Status of Goal: Goal # : Status of Goal: Goal # : Status of Goal: Seen by: Graduate/Clinical Fellow: No Supervisory Statement: f_Reg Query Last Value , MHC.AU.SIGNAT Speech Language Pathologist: Tejal Marks M.A., CCC-MANAGER BAKERY
== END 2022-07-06 15:42 | disposition home health service (06) | DRG 50 ==
LOC: HO.ED 15:55 → HO.EDOVER 18:44 → HO.IMC 19:27
PROVIDERS: Emergency Medicine Emergency Medical Services; Internal Medicine; Admitting Provider Hospitalist; Emergency Provider Emergency Medicine; Visit Provider Student in an Organized Health Care Education/Training Program
DX: A86 Unspecified viral encephalitis (principal); R65.10 Systemic inflammatory response syndrome (SIRS) of non-infectious origin without acute organ dysfunction; Z68.42 Body mass index [BMI] 45.0-49.9, adult; E66.01 Morbid (severe) obesity due to excess calories; G81.91 Hemiplegia, unspecified affecting right dominant side; F32.A Depression, unspecified; D35.4 Benign neoplasm of pineal gland; F11.21 Opioid dependence, in remission; I10 Essential (primary) hypertension; Z20.822 Contact with and (suspected) exposure to COVID-19; G92.8 Other toxic encephalopathy; Z91.013 Allergy to seafood; Z79.899 Other long term (current) drug therapy
CPT/HCPCS: 0241U; 36410; 36415; 36580; 70450; 70551; 70553; 71045; 74177; 80048; 80053; 80202; 80307; 81001; 81003; 81025; 82077; 82140; 82565; 82945; 83605; 84157; 84443; 85025; 85027; 85610; 85730; 87015; 87040; 87070; 87205; 87389; 87476; 87483; 87635; 89051; 92507; 92523; 92526; 92610; 93005; 95819; 97166; 99285; A9585; C1751; J0131; J0133; J0696; J1170; J1642; J1650; J1885; J1953; J2250; J2405; J2930; J3370; Q9967

== ENCOUNTER 2022-07-08 15:55 | Outpatient (REF) | payer BC, SELFPAY ==
[2022-07-08 15:58] LABS: MANUAL DIFF FLAG NO
[2022-07-08 16:06] LABS: Basophils Percent Auto 0.5 % (0-2); Eosinophils Absolute Auto 0.2 X10*3/uL (0.0-0.4); Eosinophils Percent Auto 2.2 % (0-4); Hemoglobin 12.7 g/dl (12.0-16.0); Imm Gran Abs Auto 0.03 X10*3/uL (0.00-0.03); Imm Gran Pct Auto 0.4 % (0.0-0.4); Lymphocytes Absolute Auto 2.6 X10*3/uL (1.2-4.9); Mean Corpuscular HGB Conc 35.3 g/dl (31.0-35.0); Mean Corpuscular Hemoglobin 31.6 pg (27.0-33.0); Mean Corpuscular Volume 89.6 fL (80.0-98.0); Mean Platelet Volume 10.4 fL (9.4-12.3); Monocytes Absolute Auto 0.8 X10*3/uL (0.1-1.2); Monocytes Percent Auto 9.4 % (2-11); Neutrophils Absolute Auto 4.5 x10*3/uL (2.0-8.3); Neutrophils Percent Auto 55.5 % (45-73); Platelet Count 309 X10*3/uL (160-400); Red Blood Count 4.02 X10*6/uL (4.20-5.50); Red Cell Distribution Width 12.1 % (11.0-16.0); White Blood Count 8.1 X10*3/uL (4.8-10.8)
[2022-07-08 16:20] LABS: Anion Gap 16 (12-20); Blood Urea Nitrogen 15 mg/dL (9-16); Calcium 8.9 mg/dL (8.4-10.2); Carbon Dioxide 22 mmol/L (22-29); Chloride 108 mmol/L (96-108); Estimated Glomerular Filt Rate > 60; Glucose Random 121 mg/dL (60-115); Potassium 4.1 mmol/L (3.3-5.1); Sodium 142 mmol/L (135-145)
== END 2022-07-08 15:56 | disposition home or self-care (01) ==
LOC: HO.HVNA 15:55
PROVIDERS: Visit Provider Internal Medicine
DX: G92.9 Unspecified toxic encephalopathy (principal)
CPT/HCPCS: 36415; 80048; 85025

== ENCOUNTER 2024-05-02 17:45 | Emergency (ER) | payer BC, SELFPAY ==
--- NOTE | ~2024-05-02 | CT_ITS ---
EXAMINATION: CT ANGIOGRAM HEAD CT ANGIOGRAM NECK CLINICAL INFORMATION: Temporary left vision loss. Right arm numbness. COMPARISON: Brain MRI from 07/05/2022. TECHNIQUE: Initial noncontrast manager stone imaging of the head and neck was performed. Noncontrast head CT was also performed. Test bolus sequences followed by intravenous administration 70 mL of Omnipaque 350. Helical imaging was performed in the axial plane from the aortic arch to the skull vertex. Delayed postcontrast imaging of the head was also performed. The data was processed at the radiologic technologist mammogram's workstation for generation of MIP sequences. Angled MIPs and volume rendered reformatted images were also generated at an offline 3D workstation. Stenoses are assessed in accordance with NASCET criteria unless otherwise indicated. This CT examination was performed using dose optimization techniques as appropriate, variously including the following: *Automated exposure control. *Adjustment of mA and/or kV according to patient size (this includes techniques or standardized protocols for targeted exams where dose is matched to indication/reason for exam; i.e. extremities or head). *Use of iterative reconstruction technique. DLP: 2308 mGy-cm FINDINGS: CT Head: There is no evidence of acute intracranial hemorrhage or edematous territorial infarction. Patricio-white matter differentiation is preserved. There is no abnormal attenuation within the brain parenchyma. The ventricles are normal in morphology and size. No evidence for obstructive hydrocephalus. No abnormal mass effect or midline shift. No extra-axial fluid collections. No pathologic intra-axial enhancement or regional oligemia. No acute soft tissue or osseous abnormalities. The mastoid air cells and visualized paranasal sinuses are clear. CT Neck: The thyroid gland and remaining cervical soft tissues are within normal limits. Mild reversal of the normal cervical lordosis centered at C5-C6 with disc-osteophyte complex formation. Moderate degenerative disc disease from C5-C7. Facet and uncovertebral joint arthropathy leads to osseous encroachment on the neural foramina at C5-C6. CT Upper Chest: The visualized lung apices and upper mediastinum are within normal limits. Neck CTA: Aortic Arch: Normal contour and caliber. Classic 3 vessel branching pattern of the aortic arch. Great Vessel Origins: No significant stenosis of the branch origins. Right Common Carotid Artery: No focal stenosis or occlusion. Cervical Right Internal Carotid Artery: Normal opacification without focal stenosis or occlusion. Left Common Carotid Artery: No focal stenosis or occlusion. Cervical Left Internal Carotid Artery: Normal opacification without focal stenosis or occlusion. Cervical Right Vertebral Artery: No focal stenosis or occlusion. Cervical Left Vertebral Artery: Mildly dominant. No focal stenosis or occlusion. Brain CTA: Intracranial Internal Carotid Arteries: No focal stenosis or occlusion. Right Anterior Cerebral Artery: Normal A1 segment. Normal opacification of the distal DREW segments. Left Anterior Cerebral Artery: Normal A1 segment. Normal opacification of the distal DREW segments. Anterior Communicating Artery: Normal. Right Middle Cerebral Artery: Normal M1 segment of the MCA without focal stenosis or occlusion. Normal arborization of the distal segments. Left Middle Cerebral Artery: Normal M1 segment of the MCA without focal stenosis or occlusion. Normal arborization of the distal segments. Right Vertebral Artery: Normal V4 segment. Normal opacification of the proximal segments of the posterior inferior cerebellar artery. Left Vertebral Artery: Normal V4 segment. Normal opacification of the proximal segments of the posterior inferior cerebellar artery. Basilar Artery: Normal without focal stenosis or occlusion. Normal appearance of the proximal superior cerebellar arteries. Right Posterior Cerebral Artery: Normal P1 segment. Normal opacification of the distal LAY OUT MAKER segments. Left Posterior Cerebral Artery: Normal P1 segment. Normal opacification of the distal LAY OUT MAKER segments. Normal opacification of the superior sagittal, straight, transverse, and sigmoid sinuses. CT/CT angio head neck IMPRESSION: 1. No evidence of acute intracranial hemorrhage or edematous territorial infarction. 2. CTA of the head and neck without proximal occlusion or flow-limiting stenosis. Electronically signed by: Richy Patel DO 05/02/2024 07:38 PM EDT
[2024-05-02 17:59] VITALS: BP 162/80; PULSE 90; O2SAT 99
--- NOTE | 2024-05-02 17:59 | ECG_ITS ---
Test Reason : PARASTHESIAS Blood Pressure : / mmHG Vent. Rate : 106 BPM Atrial Rate : 106 BPM P-R Int : 148 ms QRS Dur : 094 ms QT Int : 346 ms P-R-T Axes : 016 031 024 degrees QTc Int : 459 ms Sinus tachycardia Otherwise normal ECG When compared with ECG of 24-JUN-2022 08:34, No significant change was found Referred By: Ankita Romano Electronically Signed By:SONYA YEUNG
--- NOTE | 2024-05-02 18:03 | ED_ITS ---
HPI - Neuro Symptoms/Deficit General Chief Complaint: Headache Stated Complaint: EPISODE OF BLURRY VISION &LOWER EXTREMITY TINGLING Time Seen by Provider: 05/02/24 17:57 Source: patient and EMS Mode of arrival: EMS Limitations: no limitations History of Present Illness ED Provider: Dr. Ankita Romano HPI Narrative: patient comes to the emergency room complaining of an episode of bilateral lower field vision lost for a few minutes on the left eye. Right arm numbness and tingling, and bilateral lower extremities paresthesias. Patient also complaining of a headache. Related Data Home Medications ?Medication ?Instructions ?Recorded ?Confirmed amitriptyline 100 mg tablet 1 tab PO BEDTIME 06/23/22 06/23/22 hydroxyzine HCl 50 mg tablet 1 tab PO TID PRN anxiety 06/23/22 06/23/22 ibuprofen 800 mg tablet 1 tab PO Q8H PRN pain 06/23/22 06/23/22 lisinopril 10 mg tablet 1 tab PO DAILY 06/23/22 06/23/22 tizanidine 4 mg tablet 1 tab PO Q6H PRN muscle spasm 06/23/22 06/23/22 tramadol 50 mg tablet 1 tab PO Q6H PRN pain 06/23/22 06/23/22 Previous Rx's ?Medication ?Instructions ?Recorded acyclovir sodium 50 mg/mL 800 mg (16 mL) IV Q8H 8 days #384 07/06/22 intravenous solution mL sertraline 25 mg tablet 25 mg PO DAILY #30 tabs 07/06/22 sumatriptan succinate 50 mg tablet 50 mg PO Q2-4H PRN migraine 05/02/24 headache #14 tabs Allergies Allergy/AdvReac Type Severity Reaction Status Date / Time codeine [CODEINE] Allergy Intermediate HIVES Verified 05/02/24 18:17 shrimp Allergy Unknown Verified 05/02/24 18:17 Review of Systems 2 Review of Systems: Constitutional : No Weight loss, No Fever, No Chills, No Night Sweats, No Fatigue, No Malaise ENT/Mouth : No Hearing loss, No Ear Pain, No Nasal Congestion, No Sinus Pain, No Hoarseness, No sore throat, No Rhinorrhea, No Swallowing Difficulty Eyes: No Eye Pain, No Swelling, No Redness, No Foreign Body, No Discharge, complaining of visual changes in the bilateral lower martinez of the left eye which self-resolved Cardiovascular : No Chest Pain, No SOB, No Dyspnea on Exertion, No Orthopnea, No Edema, No Palpitations Respiratory : No Cough, No Sputum, No Wheezing, No Smoke Exposure, No Dyspnea Gastrointestinal : No Nausea, No Vomiting, No Diarrhea, No Constipation, No abdominal Pain, No Hematochezia, No Melena Genitourinary : no irregular bleeding, No Dysuria, No Urinary Frequency, No Hematuria, No Urinary Incontinence, No Urgency, No Flank Pain, No Urinary Flow Changes, No Hesitancy Musculoskeletal : No joint pain, No Myalgias, No Joint Swelling Skin : No Skin Lesions, No rash Neuro : No Weakness, No Numbness, complaining of right arm and bilateral lower extremity paresthesias, No Loss of Consciousness, No Dizziness, Complaining of Headache Psych : No Anxiety/Panic, No Depression, No SI/HI/AH/VH, No Social Issues, Heme/Lymph: No Bruising, No Bleeding,No Lymphadenopathy Endocrine : No Polyuria, No Polydipsia, No Temperature Intolerance [facility] Past Medical History Medical History Encephalitis Global aphasia Social History Social History Household Members: Unknown / Unable to assess Housing: Unknown / Unable to assess Unable to assess alcohol history related to: Unknown and Refusing to respond Comment: sitter in hallway Patient Tobacco Use Status: Tobacco use Unknown Advance Directives: No Advance Directives Information Provided: No Do you have a plan to hurt others: No Plan service: No Current occupational status: employed Physical Exam 2 Vital Signs: Vital Signs: Last Vital Signs Temp 98.1 F 05/02/24 21:43 Pulse 90 05/02/24 21:43 Resp 16 05/02/24 21:43 BP 140/73 H 05/02/24 21:43 Pulse Ox 97 05/02/24 21:43 O2 Del Method Room Air 05/02/24 21:43 BMI result Body Mass Index 45.9 Const: Other: Appearance: Alert. Oriented X3. No acute distress. Eyes: Pupils equal, round and reactive to light. bedside eye ultrasound are normal ENT: Pharynx normal. Neck: Normal inspection. Neck supple. No lymph nodes noted. No crepitus CVS: Normal heart rate and rhythm. Pulses normal. Normal S1 and S2 Respiratory: No respiratory distress. Breath sounds normal. No Wheezing. No rales Abdomen: Soft and nontender. No rigidity. No distention. Skin: Skin warm and dry. Normal skin color. Normal skin turgor. Extremities: No lower extremity edema. No Lacerations. No Rash Neuro: Oriented X 3. No motor deficit. No sensory deficit. Moving all extremities. No slurred speech. CN 2 through 12 grossly intact Psych: calm, cooperative, anxious, tearful Course Course Course Narrative: all of patient's labs pending - CT and CTA pending - patient has a very strong family history of migraine headaches in her family. Patient states that her mother has stroke-like symptoms with her migraines. - Patient is symptomatic. However, NIH score is 0 Medications Administered Discontinued Medications Generic Name Dose Route Start Last Admin Trade Name Freq PRN Reason Stop Dose Admin Diphenhydramine HCl 25 mg 05/02/24 18:01 05/02/24 18:44 Diphenhydramine Hcl 50 Mg/Ml Vial IVPUSH 05/02/24 18:02 25 mg ONCE ONE Administration Sodium Chloride 1,000 mls @ 999 mls/hr 05/02/24 18:01 05/02/24 19:45 Ns IVCONT 05/02/24 19:01 Infused .Q1H1M ONE Infusion Iohexol 100 ml 05/02/24 19:07 05/02/24 19:07 Iohexol 350 Mg/Ml 100 Ml Infus..Btl IV 05/02/24 19:08 70 ml ONCE ONE Administration Ketorolac Tromethamine 30 mg 05/02/24 21:19 05/02/24 21:36 Ketorolac Tromethamine 30 Mg/Ml Vial IVPUSH 05/02/24 21:20 30 mg ONCE ONE Administration Metoclopramide HCl 10 mg 05/02/24 18:01 05/02/24 18:46 Metoclopramide Hcl 10 Mg/2 Ml Vial IVPUSH 05/02/24 18:02 10 mg ONCE ONE Administration Morphine Sulfate 2 mg 05/02/24 18:01 05/02/24 18:45 Morphine Sulfate 2 Mg/Ml Cartridge IVPUSH 05/02/24 18:02 2 mg ONCE ONE Administration Protocol Medical Decision Making Medical Decision Making [facility] Narrative: - my interpretation of labs, hematology and chemistry at baseline, troponin negative - CTA of the head and neck negative for any acute pathology. - Discussed with the patient that likely she has an ocular migraine versus migraine. Differential Diagnosis Differential Diagnoses: The differential diagnosis associated with the presentation includes ( migraine, TIA, tension headache) Admission/Observation Consideration of admission/observation: Escalation of care including admission/observation considered ( given patient's symptoms, observation considered) Lab Data MDM Lab Attestation statement: I reviewed the patient's lab results. 05/02/24 18:27 05/02/24 18:27 Labs: Lab Results 05/02/24 05/02/24 Range/Units 18:27 18:50 WBC 10.6 (4.8-10.8) X10*3/uL RBC 4.25 (4.20-5.50) X10*6/uL Hgb 13.9 (12.0-16.0) g/dl Hct 38.9 (37.0-47.0) % MCV 91.5 (80.0-98.0) fL MCH 32.7 (27.0-33.0) pg MCHC 35.7 H (31.0-35.0) g/dl RDW 11.9 (11.0-16.0) % Plt Count 238 (160-400) X10*3/uL MPV 10.7 (9.4-12.3) fL Immature Gran % (Auto) 0.7 H (0.0-0.4) % Neut % (Auto) 69.8 (45-73) % Lymph % (Auto) 19.8 L (20-40) % [place] % (Auto) 7.8 (2-11) % Eos % (Auto) 1.5 (0-4) % Baso % (Auto) 0.4 (0-2) % Lymph # (Auto) 2.1 (1.2-4.9) X10*3/uL [place] # (Auto) 0.8 (0.1-1.2) X10*3/uL Eos # (Auto) 0.2 (0.0-0.4) X10*3/uL Baso # (Auto) 0.0 (0.0-0.2) X10*3/uL Abs Immat Gran (auto) 0.07 H (0.00-0.03) X10*3/uL Absolute Neuts (auto) 7.4 (2.0-8.3) x10*3/uL Absolute Nucleated RBC 0.000 (0.0-0.012) X10*3/uL Nucleated RBC % (auto) 0.0 (0.0-0.2) /100WBC PT 11.4 (11.1-13.3) SEC INR 0.9 (0.9-1.1) Sodium 139 (135-145) mmol/L Potassium 3.7 (3.3-5.1) mmol/L Chloride 107 (96-108) mmol/L Carbon Dioxide 24 (22-29) mmol/L Anion Gap 12 (12-20) BUN 12 (9-16) mg/dL Creatinine 0.74 (0.5-1.4) mg/dL Estim Creat Clear Calc 148.6 Estimated GFR > 60 Random Glucose 141 H (60-115) mg/dL Calcium 9.4 (8.4-10.2) mg/dL Magnesium 2.0 (1.6-2.6) mg/dL Total Bilirubin 0.2 (0.0-1.0) mg/dL Direct Bilirubin < 0.2 (0.0-0.5) mg/dL AST 17 (5-31) U/L ALT 21 (0-31) U/L Alkaline Phosphatase 80 (39-117) U/L Troponin I High Sens < 2.7 (<3.5-17.0) ng/L Total Protein 6.8 (6.5-8.0) g/dL Albumin 3.8 (3.5-5.0) g/dL Urine Opiates Screen Not Detected (Not Detect) Ur Buprenorphine Scrn Not Detected (Not Detect) ng/mL Ur Oxycodone Screen Not Detected (Not Detect) ng/mL Urine Methadone Screen Not Detected (Not Detect) ng/mL Urine Fentanyl Screen Not Detected (Not Detect) Ur Barbiturates Screen Not Detected (Not Detect) Ur Phencyclidine Scrn Not Detected (Not Detect) Ur Amphetamines Screen Not Detected (Not Detect) U Benzodiazepines Scrn Not Detected (Not Detect) Urine Cocaine Screen Not Detected (Not Detect) U Marijuana (THC) Screen POSITIVE H (Not Detect) Ethyl Alcohol < 10 mg/dL Independent Interpretation I performed an independent interpretation of an: CT Scan Radiology Impression Discussion of test interpretation with radiology: I have reviewed the radiologist's reading. (CT Head: There is no evidence of acute intracranial hemorrhage or edematous territorial infarction. Patricio-white matter differentiation is preserved. There is no abnormal attenuation within the brain parenchyma. The ventricles are normal in morphology and size. No evidence for obstructive hydrocep) NIH Stroke Scale Internal: Initial- Upon Arrival Level of Consciousness: Alert Level of Consciousness Questions: Answers both questions correctly Level of Consciousness Commands: Performs both tasks correctly Best Gaze: Normal Visual: No visual loss Facial Palsy: Normal Motor Arm (Right): No drift Motor Arm (Left): No drift Motor Leg (Right): No drift Motor Leg (Left): No drift Limb Ataxia: Absent Sensory: Normal Best Language: No aphasia Dysarthia: Normal Extinction and Inattention: No abnormality Score: 0 Critical Care Time Critical Care Time Critical Care Time: Yes Total Critical Care Time: 60 Attestation: I have personally provided critical care time. Time includes review of lab data, radiology results, discussion with consultants, and monitoring for potential decompensation. Intervention performed as documented. Discharge Plan Discharge Clinical Impression: Migraine Patient Disposition: Home, Self-Care Instructions: Migraine Headache (ED) Additional Instructions: Please follow-up with your primary care physician tomorrow. If you have any worsening or new symptoms, please return to the emergency room or call 911 Prescriptions: New sumatriptan succinate 50 mg tablet 50 mg PO Q2-4H PRN (Reason: migraine headache) Qty: 14 0RF Rx Instructions: do not exceed 4 doses per 24 hrs No Action ibuprofen 800 mg tablet 1 tab PO Q8H PRN (Reason: pain) tizanidine 4 mg tablet 1 tab PO Q6H PRN (Reason: muscle spasm) hydroxyzine HCl 50 mg tablet 1 tab PO TID PRN (Reason: anxiety) tramadol 50 mg tablet 1 tab PO Q6H PRN (Reason: pain) lisinopril 10 mg tablet 1 tab PO DAILY amitriptyline 100 mg tablet 1 tab PO BEDTIME acyclovir sodium 50 mg/mL solution 800 mg IV Q8H 8 Days Qty: 384 0RF sertraline 25 mg Tablet 25 mg PO DAILY Qty: 30 0RF Referrals: Khari Norman MD [Physician] - 05/03/24 Stand Alone Forms: Work/School Release Print Language: Latvian
[2024-05-02 18:17] VITALS: BP 153/86; PULSE 101; RESP 20; TEMP 36.9; O2SAT 100; BMI 45.9
[2024-05-02 18:32] LABS: MANUAL DIFF FLAG NO
[2024-05-02] MEDS: 0.9 % Sodium Chloride 1,000 ML 999 ML IVCONT (18:44)
[2024-05-02] MEDS: diphenhydrAMINE HCL 50 MG/ML VIAL 25 MG IVPUSH (18:44)
[2024-05-02 18:45] LABS: Ethanol < 10 mg/dL
[2024-05-02] MEDS: Morphine Sulfate 2 MG/ML CARTRIDGE IVPUSH (18:45)
[2024-05-02] MEDS: Metoclopramide HCl 10 MG/2 ML VIAL IVPUSH (18:46)
[2024-05-02 18:48] LABS: Alanine Aminotransferase 21 U/L (0-31); Albumin Level 3.8 g/dL (3.5-5.0); Alkaline Phosphatase 80 U/L (39-117); Anion Gap 12 (12-20); Aspartate Amino Transferase 17 U/L (5-31); Bilirubin Direct < 0.2 mg/dL (0.0-0.5); Bilirubin Total 0.2 mg/dL (0.0-1.0); Blood Urea Nitrogen 12 mg/dL (9-16); Calcium 9.4 mg/dL (8.4-10.2); Carbon Dioxide 24 mmol/L (22-29); Chloride 107 mmol/L (96-108); Creatinine Clr Calc Pharmacy 148.6; Estimated Glomerular Filt Rate > 60; Glucose Random 141 mg/dL (60-115); Potassium 3.7 mmol/L (3.3-5.1); Sodium 139 mmol/L (135-145); Total Protein 6.8 g/dL (6.5-8.0)
[2024-05-02 18:50] LABS: Basophils Percent Auto 0.4 % (0-2); Eosinophils Absolute Auto 0.2 X10*3/uL (0.0-0.4); Eosinophils Percent Auto 1.5 % (0-4); Hematocrit 38.9 % (37.0-47.0); Hemoglobin 13.9 g/dl (12.0-16.0); Imm Gran Abs Auto 0.07 X10*3/uL (0.00-0.03); Imm Gran Pct Auto 0.7 % (0.0-0.4); Lymphocytes Absolute Auto 2.1 X10*3/uL (1.2-4.9); Lymphocytes Percent Auto 19.8 % (20-40); Mean Corpuscular HGB Conc 35.7 g/dl (31.0-35.0); Mean Corpuscular Hemoglobin 32.7 pg (27.0-33.0); Mean Corpuscular Volume 91.5 fL (80.0-98.0); Mean Platelet Volume 10.7 fL (9.4-12.3); Monocytes Absolute Auto 0.8 X10*3/uL (0.1-1.2); Monocytes Percent Auto 7.8 % (2-11); Neutrophils Absolute Auto 7.4 x10*3/uL (2.0-8.3); Neutrophils Percent Auto 69.8 % (45-73); Platelet Count 238 X10*3/uL (160-400); Red Blood Count 4.25 X10*6/uL (4.20-5.50); Red Cell Distribution Width 11.9 % (11.0-16.0); White Blood Count 10.6 X10*3/uL (4.8-10.8)
[2024-05-02 18:55] LABS: INTERNATIONAL NORM RATIO 0.9 (0.9-1.1); Prothrombin Time 11.4 SEC (11.1-13.3)
[2024-05-02 18:56] LABS: Troponin-I High Sensitivity < 2.7 ng/L (<3.5-17.0)
[2024-05-02] MEDS: iohexoL 350 MG/ML 100 ML INFUS..BTL IV (19:07)
[2024-05-02 19:09] LABS: Amphetamine Screen Urine Not Detected (Not Detect); Barbiturates, Urine Not Detected (Not Detect); Benzodiazepines Screen Urine Not Detected (Not Detect); Buprenorphine Scr Not Detected (Not Detect); Cannabinoid Screen Urine POSITIVE (Not Detect); Cocaine Screen Urine Not Detected (Not Detect); Fentanyl, urine Not Detected (Not Detect); Methadone Screen, Urine Not Detected (Not Detect); Opiate Screen Urine Not Detected (Not Detect); Oxycodone Screen Urine Not Detected (Not Detect); Phencyclidine Screen Urine Not Detected (Not Detect)
[2024-05-02 19:38] VITALS: BP 153/74; PULSE 94; RESP 16; TEMP 36.9; O2SAT 97
--- NOTE | 2024-05-02 21:21 | PC.NURSE ---
pt reports 9/10 YOUNGBLOOD, blurriness improved. axox4 ambulatory with steady gait. pt requested tylenol for pain, MD aware. neuros intact.
[2024-05-02] MEDS: Ketorolac Tromethamine 30 MG/ML VIAL IVPUSH (21:36)
[2024-05-02 21:43] VITALS: BP 140/73; PULSE 90; RESP 16; TEMP 36.7; O2SAT 97
[2024-05-02 22:43] VITALS: BP 140/73; PULSE 90; RESP 16; TEMP 36.7; O2SAT 97
== END 2024-05-02 22:43 | disposition home or self-care (01) ==
PROVIDERS: Emergency Provider Emergency Medicine; PCP Internal Medicine
DX: G43.909 Migraine, unspecified, not intractable, without status migrainosus (principal); H54.7 Unspecified visual loss; R20.0 Anesthesia of skin; R20.2 Paresthesia of skin; R29.700 NIHSS score 0; Z79.899 Other long term (current) drug therapy
CPT/HCPCS: 36415; 70496; 70498; 80048; 80076; 80307; 83735; 84484; 85025; 85610; 93005; 96361; 96374; 96375; 99284; J1200; J1885; J2270; J2765; Q9967

== ENCOUNTER 2024-05-21 16:14 | Emergency (ER) | payer BC, SELFPAY ==
--- NOTE | ~2024-05-21 | CT_ITS ---
EXAMINATION: CT ABDOMEN AND PELVIS WITH CONTRAST CLINICAL INFORMATION: Right lower quadrant pain COMPARISON: June 23, 2022 TECHNIQUE: Multidetector volumetric images were obtained from the superior aspect of the liver through the pubic symphysis following administration 85 mL of Omnipaque 350 intravenous contrast. Sagittal and coronal reformatted images were obtained on the technologist's workstation. Oral contrast: No This CT examination was performed using dose optimization techniques as appropriate, variously including the following: *Automated exposure control *Adjustment of mA and/or kV according to patient size (this includes techniques or standardized protocols for targeted exams where dose is matched to indication/reason for exam; i.e. extremities or head) *Use of iterative reconstruction technique DLP: 1110 mGy-cm FINDINGS: LUNG BASES: There is minimal scarring at the anterior right lung base. LIVER, GALLBLADDER, AND BILIARY TREE: The liver is normal in size, shape, and attenuation. No focal hepatic lesion or biliary ductal dilatation is present. There has been a prior cholecystectomy. PANCREAS: Unremarkable. SPLEEN: Unremarkable. ADRENAL GLANDS: Unremarkable. KIDNEYS AND URETERS: The kidneys are normal in size, shape, and attenuation. No hydronephrosis, hydroureter, or calculi seen. No perinephric stranding. There are subcentimeter cysts in both kidneys. BLADDER: Unremarkable. GASTROINTESTINAL TRACT: The small and large bowel are unremarkable. The appendix is unremarkable. ABDOMINAL WALL: There is a minimal umbilical hernia containing fat. LYMPH NODES: Normal. VASCULAR: Unremarkable. PELVIC VISCERA: Unremarkable. OSSEOUS STRUCTURES: There is degenerative and postoperative change of the lumbar spine. There is a prominent posterior osteophyte at L2-3 with moderate spinal canal narrowing. CT/CT abdomen pelvis w IV con IMPRESSION: No acute findings. Normal-appearing appendix. No renal stone or hydronephrosis seen. Status post cholecystectomy. Degenerative and postoperative changes of the lumbar spine. Fleischner guidelines were followed. Electronically signed by: Slava Price MD 05/22/2024 04:19 AM EDT
--- NOTE | ~2024-05-21 | US_ITS ---
EXAMINATION: ULTRASOUND RIGHT LOWER QUADRANT CLINICAL INFORMATION: Right lower quadrant pain COMPARISON: None. TECHNIQUE: Grayscale ultrasound, color Doppler performed right lower quadrant. FINDINGS: The appendix is not seen. Appendicitis cannot be excluded. No focal fluid collection. No inflammatory change. US/US appendix IMPRESSION: The appendix is not identified. Appendicitis cannot be excluded. No focal inflammatory change. Electronically signed by: Alexis Fitzpatrick MD 05/21/2024 06:09 PM EDT
[2024-05-21 16:28] VITALS: BP 176/111; PULSE 103; RESP 18; TEMP 36.9; O2SAT 99; BMI 47.0
--- NOTE | 2024-05-21 16:32 | ED.GENADULT ---
HPI - General Adult General Chief complaint: Abdominal Pain Stated complaint: ? appendicitis sent from Time Seen by Provider: 05/21/24 22:57 Source: patient and old records reviewed Mode of arrival: ambulatory Limitations: no limitations History of Present Illness ED Provider: DIANA DIXON narrative: 39 yo female with PMH of HTN, chronic back pain on daily tramadol, prior cholecystectomy and anterior approach back surgery here with c/o one day of lower abdominal pain on R side. She denies n/v/d and dysuria. She has not had fevers. She was referred here by urgent care. She denies hx of ovarian cysts. She last ate lunch time. No trauma or strain to the area. Pain made worse with walking and the patient notes her tramadol is not touching the pain. MD complaint: abdominal pain Onset (ago): day(s) (1) Location: abdomen Radiation: non-radiation Severity: moderate Quality: aching and constant Pain Consistency: constant Relieving factors: none Exacerbating factors: movement Associated symptoms: denies other symptoms Treatments prior to arrival: none Related Data Home Medications ?Medication ?Instructions ?Recorded ?Confirmed amitriptyline 100 mg tablet 1 tab PO BEDTIME 06/23/22 06/23/22 hydroxyzine HCl 50 mg tablet 1 tab PO TID PRN anxiety 06/23/22 06/23/22 ibuprofen 800 mg tablet 1 tab PO Q8H PRN pain 06/23/22 06/23/22 lisinopril 10 mg tablet 1 tab PO DAILY 06/23/22 06/23/22 tizanidine 4 mg tablet 1 tab PO Q6H PRN muscle spasm 06/23/22 06/23/22 tramadol 50 mg tablet 1 tab PO Q6H PRN pain 06/23/22 06/23/22 Previous Rx's ?Medication ?Instructions ?Recorded acyclovir sodium 50 mg/mL 800 mg (16 mL) IV Q8H 8 days #384 07/06/22 intravenous solution mL sertraline 25 mg tablet 25 mg PO DAILY #30 tabs 07/06/22 sumatriptan succinate 50 mg tablet 50 mg PO Q2-4H PRN migraine 05/02/24 headache #14 tabs Allergies Allergy/AdvReac Type Severity Reaction Status Date / Time codeine [CODEINE] Allergy Intermediate HIVES Verified 05/21/24 16:30 shrimp Allergy Unknown Verified 05/21/24 16:30 Review of Systems Review of Systems: Constitutional : No Weight loss, No Fever, No Chills ENT/Mouth : No sore throat, No Rhinorrhea Eyes: No Swelling, No Redness Cardiovascular : No Chest Pain, No SOB, NoEdema Respiratory : No Cough, No Sputum, No Wheezing Gastrointestinal : no Nausea, no Vomiting, no Diarrhea, positive abdominal Pain, No Hematochezia, No Melena Genitourinary : No Dysuria, No Urinary Frequency, No Hematuria, No Urgency Musculoskeletal : No joint pain, No Myalgias, No Joint Swelling Skin : No Skin Lesions, No rash Neuro : No Weakness, No Numbness, No Dizziness, No Headache Psych : No Anxiety/Panic, No Depression All other systems reviewed and are negative. [facility] Past Medical History Attestation statement: The following information was validated with the patient. Source: old records reviewed Medical History Encephalitis Global aphasia Social History Social History Household Members: Unknown / Unable to assess Housing: Unknown / Unable to assess Unable to assess alcohol history related to: Unknown and Refusing to respond Comment: sitter in hallway Patient Tobacco Use Status: Tobacco use Unknown Advance Directives: No Advance Directives Information Provided: No service: No Current occupational status: employed Physical Exam ED Vital Signs: Vital Signs - 24 hr 05/21/24 16:28 05/21/24 23:23 05/22/24 01:35 Temperature 98.4 F 98.1 F 97.9 F Pulse Rate 103 H 100 94 Respiratory Rate 18 18 17 Blood Pressure 176/111 H 165/91 H 125/74 Pulse Oximetry 99 97 98 Oxygen Delivery Method Room Air Room Air Room Air BMI result Body Mass Index 47.0 Appearance: Alert. Oriented X3. No acute distress. Eyes: Pupils equal, round and reactive to light. ENT: Pharynx normal. Neck: Normal inspection. Neck supple. CVS: Normal heart rate and rhythm. Pulses normal. Respiratory: No respiratory distress. Breath sounds normal. Abdomen: Soft and no mass felt reports moderate ttp in RLQ no rebound Skin: Skin warm and dry. Normal skin color. Normal skin turgor. Extremities: No lower extremity edema. No calf ttp Neuro: Oriented X 3. No motor deficit. No sensory deficit. Course Course Course Narrative: RME performed by Missy Quan PA-C. Patient is a 39 year old assigned female at presenting to the emergency department with right sided lower abdominal pain. Patient states that over the last day she has had right sided lower abdominal pain and was told to come here to have appendicitis ruled out. Detailed physical exam and review of systems are deferred to the export administrator. Labs, imaging, and swabs ordered. Patient placed back in the waiting room pending room availability and results. Reevaluation(s) Reevaluation #1: signed out to Dr. Townsend pending CT scan read Medications Administered Discontinued Medications Generic Name Dose Route Start Last Admin Trade Name Freq PRN Reason Stop Dose Admin Hydromorphone HCl 1 mg 05/21/24 23:01 05/21/24 23:20 Hydromorphone Hcl 1 Mg/Ml Syringe IVPUSH 05/21/24 23:02 1 mg ONCE ONE Administration Protocol Iohexol 100 ml 05/22/24 00:03 05/22/24 00:04 Iohexol 350 Mg/Ml 100 Ml Infus..Btl IV 05/22/24 00:04 100 ml ONCE ONE Administration Ketorolac Tromethamine 15 mg 05/22/24 01:38 05/22/24 01:42 Ketorolac Tromethamine 15 Mg/Ml Vial IVPUSH 05/22/24 01:39 15 mg ONCE ONE Administration Ondansetron HCl 4 mg 05/21/24 23:01 05/21/24 23:20 Ondansetron Hcl 4 Mg/2 Ml Vial IVPUSH 05/21/24 23:02 4 mg ONCE ONE Administration Medical Decision Making Medical Decision Making [facility] Narrative: 39 yo female with PMH of HTN, chronic back pain on daily tramadol, prior cholecystectomy and anterior approach here with c/o RLQ pain since yesterday no fevers, n/v/d she notes her BP is going up due to pain. She has not eaten since lunch. At this time labs, CT scan for appendicitis, IV dilaudid for pain ordered. Differential Diagnosis Differential Diagnoses: The differential diagnosis associated with the presentation includes renal colic, appendicitis, ovarian cyst Admission/Observation Consideration of admission/observation: Escalation of care including admission/observation considered Lab Data [facility] Lab Attestation statement: I reviewed the patient's lab results. 05/21/24 17:15 05/21/24 17:15 Labs: Lab Results 05/21/24 05/21/24 Range/Units 17:15 23:26 WBC 11.0 H (4.8-10.8) X10*3/uL RBC 4.20 (4.20-5.50) X10*6/uL Hgb 13.6 (12.0-16.0) g/dl Hct 38.3 (37.0-47.0) % MCV 91.2 (80.0-98.0) fL MCH 32.4 (27.0-33.0) pg MCHC 35.5 H (31.0-35.0) g/dl RDW 11.9 (11.0-16.0) % Plt Count 249 (160-400) X10*3/uL MPV 10.2 (9.4-12.3) fL Immature Gran % (Auto) 0.5 H (0.0-0.4) % Neut % (Auto) 69.7 (45-73) % Lymph % (Auto) 19.7 L (20-40) % Walsh % (Auto) 8.7 (2-11) % Eos % (Auto) 1.0 (0-4) % Baso % (Auto) 0.4 (0-2) % Lymph # (Auto) 2.2 (1.2-4.9) X10*3/uL Walsh # (Auto) 1.0 (0.1-1.2) X10*3/uL Eos # (Auto) 0.1 (0.0-0.4) X10*3/uL Baso # (Auto) 0.0 (0.0-0.2) X10*3/uL Abs Immat Gran (auto) 0.06 H (0.00-0.03) X10*3/uL Absolute Neuts (auto) 7.6 (2.0-8.3) x10*3/uL Absolute Nucleated RBC 0.000 (0.0-0.012) X10*3/uL Nucleated RBC % (auto) 0.0 (0.0-0.2) /100WBC Sodium 140 (135-145) mmol/L Potassium 4.3 (3.3-5.1) mmol/L Chloride 106 (96-108) mmol/L Carbon Dioxide 27 (22-29) mmol/L Anion Gap 11 L (12-20) BUN 15 (9-16) mg/dL Creatinine 0.77 (0.5-1.4) mg/dL Estim Creat Clear Calc 144.8 Estimated GFR > 60 Random Glucose 103 (60-115) mg/dL Calcium 9.3 (8.4-10.2) mg/dL Magnesium 2.0 (1.6-2.6) mg/dL Total Bilirubin 0.4 (0.0-1.0) mg/dL AST 20 (5-31) U/L ALT 20 (0-31) U/L Alkaline Phosphatase 89 (39-117) U/L Total Protein 7.4 (6.5-8.0) g/dL Albumin 4.1 (3.5-5.0) g/dL Beta HCG, Quant < 2 mIU/mL Urine Color Yellow Urine Appearance Cloudy Urine pH 6.0 (5.0-9.0) Ur Specific [place] 1.020 (1.005-1.025) Urine Protein 100 (2+) H (Neg-Trace) mg/dL Urine Glucose (UA) Negative (Negative) mg/dL Urine Ketones Negative (Negative) mg/dL Urine Blood Trace H (Negative) Urine Nitrite Negative (Negative) Ur Leukocyte Esterase Negative (Negative) Urine RBC 0-2 (0-2) /HPF Urine WBC 0-5 (0-5) /HPF Ur Squamous Epith Cells 6-10 (0-2) /HPF Urine Bacteria 1+ (None Seen) Hyaline Casts 0-2 (0-2) /LPF Influenza Type A (PCR) NEGATIVE (Negative) Influenza Type B (PCR) NEGATIVE (Negative) RSV RNA Qual (PCR) NEGATIVE (Negative) SARS-CoV-2 RNA (RT-PCR) NEGATIVE (Negative) Independent Interpretation I performed an independent interpretation of an: CT Scan External Record Review External record reviewed: Office record Discharge Plan Discharge Clinical Impression: Abdominal pain Qualifiers: Abdominal location: right lower quadrant Qualified Code(s): R10.31 - Right lower quadrant pain Instructions: Abdominal Pain (ED) Prescriptions: No Action ibuprofen 800 mg tablet 1 tab PO Q8H PRN (Reason: pain) tizanidine 4 mg tablet 1 tab PO Q6H PRN (Reason: muscle spasm) hydroxyzine HCl 50 mg tablet 1 tab PO TID PRN (Reason: anxiety) tramadol 50 mg tablet 1 tab PO Q6H PRN (Reason: pain) lisinopril 10 mg tablet 1 tab PO DAILY amitriptyline 100 mg tablet 1 tab PO BEDTIME acyclovir sodium 50 mg/mL solution 800 mg IV Q8H 8 Days Qty: 384 0RF sertraline 25 mg Tablet 25 mg PO DAILY Qty: 30 0RF sumatriptan succinate 50 mg tablet 50 mg PO Q2-4H PRN (Reason: migraine headache) Qty: 14 0RF Rx Instructions: do not exceed 4 doses per 24 hrs Print Language: Gambian
[2024-05-21 17:18] LABS: MANUAL DIFF FLAG NO
[2024-05-21 17:20] LABS: Basophils Percent Auto 0.4 % (0-2); Eosinophils Absolute Auto 0.1 X10*3/uL (0.0-0.4); Hematocrit 38.3 % (37.0-47.0); Hemoglobin 13.6 g/dl (12.0-16.0); Imm Gran Abs Auto 0.06 X10*3/uL (0.00-0.03); Imm Gran Pct Auto 0.5 % (0.0-0.4); Lymphocytes Absolute Auto 2.2 X10*3/uL (1.2-4.9); Lymphocytes Percent Auto 19.7 % (20-40); Mean Corpuscular HGB Conc 35.5 g/dl (31.0-35.0); Mean Corpuscular Hemoglobin 32.4 pg (27.0-33.0); Mean Corpuscular Volume 91.2 fL (80.0-98.0); Mean Platelet Volume 10.2 fL (9.4-12.3); Monocytes Percent Auto 8.7 % (2-11); Neutrophils Absolute Auto 7.6 x10*3/uL (2.0-8.3); Neutrophils Percent Auto 69.7 % (45-73); Platelet Count 249 X10*3/uL (160-400); Red Cell Distribution Width 11.9 % (11.0-16.0)
[2024-05-21 17:40] LABS: Alanine Aminotransferase 20 U/L (0-31); Albumin Level 4.1 g/dL (3.5-5.0); Alkaline Phosphatase 89 U/L (39-117); Anion Gap 11 (12-20); Aspartate Amino Transferase 20 U/L (5-31); Bilirubin Total 0.4 mg/dL (0.0-1.0); Blood Urea Nitrogen 15 mg/dL (9-16); Calcium 9.3 mg/dL (8.4-10.2); Carbon Dioxide 27 mmol/L (22-29); Chloride 106 mmol/L (96-108); Creatinine Clr Calc Pharmacy 144.8; Estimated Glomerular Filt Rate > 60; Glucose Random 103 mg/dL (60-115); Potassium 4.3 mmol/L (3.3-5.1); Sodium 140 mmol/L (135-145); Total Protein 7.4 g/dL (6.5-8.0)
[2024-05-21 17:42] LABS: HCG Quantitative < 2 mIU/mL
[2024-05-21 17:58] LABS: Influenza A PCR NEGATIVE (Negative); Influenza B PCR NEGATIVE (Negative); Resp Syncy Virus RNA Qual PCR NEGATIVE (Negative); SARS COV2 PCR INHOUSE NEGATIVE (Negative)
[2024-05-21] MEDS: HYDROmorphone HCl 1 MG/ML SYRINGE IVPUSH (23:20)
[2024-05-21] MEDS: ondansetron HCL 4 MG/2 ML VIAL IVPUSH (23:20)
[2024-05-21 23:23] VITALS: BP 165/91; PULSE 100; RESP 18; TEMP 36.7; O2SAT 97
[2024-05-21 23:34] LABS: Appearance Urine Cloudy; Color Urine Yellow; Glucose Urine UA Negative (Negative); Leukocyte Esterase Urine Negative (Negative); Nitrite Urine Negative (Negative); UMIC TRIGGER UACC YES; Urine Blood Trace (Negative); Urine Ketones Negative (Negative); Urine Protein 100 (2+) mg/dL (Neg-Trace)
[2024-05-21 23:39] LABS: Bacteria Urine 1+ (None Seen); Hyaline Casts Urine 0-2 /LPF (0-2); RBC Urine 0-2 /HPF (0-2); WBC Urine 0-5 /HPF (0-5)
[2024-05-22] MEDS: iohexoL 350 MG/ML 100 ML INFUS..BTL IV (00:04)
[2024-05-22 01:35] VITALS: BP 125/74; PULSE 94; RESP 17; TEMP 36.6; O2SAT 98
[2024-05-22] MEDS: Ketorolac Tromethamine 15 MG/ML VIAL IVPUSH (01:42)
[2024-05-22 04:30] VITALS: BP 133/60; PULSE 94; RESP 17; TEMP 36.7; O2SAT 95
[2024-05-22 05:23] VITALS: BP 133/60; PULSE 94; RESP 17; TEMP 36.7; O2SAT 95
== END 2024-05-22 05:24 | disposition home or self-care (01) ==
PROVIDERS: Physician Assistant Medical; Emergency Provider Emergency Medicine; PCP Nurse Practitioner Family
DX: R10.31 Right lower quadrant pain (principal); Z03.818 Encounter for observation for suspected exposure to other biological agents ruled out; I10 Essential (primary) hypertension; Z90.49 Acquired absence of other specified parts of digestive tract; Z79.899 Other long term (current) drug therapy
CPT/HCPCS: 0241U; 74177; 76705; 80053; 81001; 83735; 84702; 85025; 96374; 96375; 99284; J1170; J1885; J2405; Q9967

== ENCOUNTER 2024-08-09 07:42 | Emergency (ER) | payer BC, SELFPAY ==
--- NOTE | ~2024-08-09 | XR_ITS ---
EXAMINATION: Left foot series. Left ankle series. CLINICAL INFORMATION: Pain and swelling left ankle COMPARISON: None. TECHNIQUE: 3 views of the left foot and 3 views of the left ankle FINDINGS: Left ankle and foot: Small calcaneal spurs. Some calcification of plantar to the distal calcaneus perhaps related to old soft tissue trauma. Additional calcification also noted in the region of the plantar fascia perhaps related to old partial tear. Remaining bones joints and soft tissues normal. XR/XR foot LT min 3V IMPRESSION: 1. No acute abnormality. 2. Calcaneal spurs. 3. Calcifications in the region of the plantar fascia and deep to the fascia perhaps related to old soft tissue trauma. Electronically signed by: Roderick Patrick MD 08/09/2024 09:38 AM [facility]
--- NOTE | ~2024-08-09 | XR_ITS ---
EXAMINATION: Left foot series. Left ankle series. CLINICAL INFORMATION: Pain and swelling left ankle COMPARISON: None. TECHNIQUE: 3 views of the left foot and 3 views of the left ankle FINDINGS: Left ankle and foot: Small calcaneal spurs. Some calcification of plantar to the distal calcaneus perhaps related to old soft tissue trauma. Additional calcification also noted in the region of the plantar fascia perhaps related to old partial tear. Remaining bones joints and soft tissues normal. XR/XR ankle LT min 3V IMPRESSION: 1. No acute abnormality. 2. Calcaneal spurs. 3. Calcifications in the region of the plantar fascia and deep to the fascia perhaps related to old soft tissue trauma. Electronically signed by: Roderick Patrick MD 08/09/2024 09:38 AM [facility]
[2024-08-09 07:49] VITALS: BP 132/81; PULSE 82; RESP 16; TEMP 36.4; O2SAT 98; BMI 45.9
--- NOTE | 2024-08-09 08:18 | ED_ITS ---
HPI - General Adult General Chief complaint: Extremity Injury, Lower Stated complaint: l foot inj Time Seen by Provider: 08/09/24 08:16 Source: patient Mode of arrival: ambulatory Limitations: no limitations History of Present Illness ED Provider: gary DIXON narrative: Patient is a 39-year-old female presenting to the emergency department with complaint of left foot and ankle pain since last night. 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 Complains of ongoing pain and swelling since. States pain is decreased if she walks on the lateral edge of her foot or her heel. Denies any weakness, numbness, tingling. MD complaint: left ankle and foot pain Onset (ago): hour(s) Location: left and lower extremity Severity: severe Quality: aching Pain Consistency: constant Exacerbating factors: movement Associated symptoms: denies other symptoms Treatments prior to arrival: none Related Data Home Medications ?Medication ?Instructions ?Recorded ?Confirmed amitriptyline 100 mg tablet 1 tab PO BEDTIME 06/23/22 06/23/22 hydroxyzine HCl 50 mg tablet 1 tab PO TID PRN anxiety 06/23/22 06/23/22 ibuprofen 800 mg tablet 1 tab PO Q8H PRN pain 06/23/22 06/23/22 lisinopril 10 mg tablet 1 tab PO DAILY 06/23/22 06/23/22 tizanidine 4 mg tablet 1 tab PO Q6H PRN muscle spasm 06/23/22 06/23/22 tramadol 50 mg tablet 1 tab PO Q6H PRN pain 06/23/22 06/23/22 Previous Rx's ?Medication ?Instructions ?Recorded acyclovir sodium 50 mg/mL 800 mg (16 mL) IV Q8H 8 days #384 07/06/22 intravenous solution mL sertraline 25 mg tablet 25 mg PO DAILY #30 tabs 07/06/22 sumatriptan succinate 50 mg tablet 50 mg PO Q2-4H PRN migraine 05/02/24 headache #14 tabs Allergies Allergy/AdvReac Type Severity Reaction Status Date / Time codeine [CODEINE] Allergy Intermediate HIVES Verified 08/09/24 07:50 shrimp Allergy Unknown Verified 08/09/24 07:50 Review of Systems Review of Systems: As per hPI Yes all other systems are reviewed and are negative Constitutional: Constitutional: Reports as per [facility] Past Medical History Medical History Encephalitis Global aphasia Social History Social History Household Members: Unknown / Unable to assess Housing: Unknown / Unable to assess Unable to assess alcohol history related to: Unknown and Refusing to respond Comment: sitter in hallway Patient Tobacco Use Status: Tobacco use Unknown Advance Directives: No Advance Directives Information Provided: Yes service: No Current occupational status: employed Physical Exam ED Vital Signs: Vital Signs - 24 hr 08/09/24 07:49 Temperature 97.6 F Pulse Rate 82 Respiratory Rate 16 Blood Pressure 132/81 Pulse Oximetry 98 Oxygen Delivery Method Room Air BMI result Body Mass Index 45.9 Vital signs have been reviewed and appear to be correct. Blood pressure normal. Heart rate normal. Respiratory rate normal. Temperature normal. Oxygen saturation normal. Const General: cooperative, healthy appearing and no acute distress Orientation/consciousness: oriented to person, oriented to place, oriented to time and patient oriented x3 Limitations: no limitations [facility] Head: Yes normocephalic and Yes atraumatic Ears: external ears normal General nose exam: Normal external nose present Face and sinus: Yes face symmetric Mouth: oropharynx normal and moist mucous membranes Throat: Yes uvula midline Eyes Pupils: Equal, round and reactive pupils present Neck Neck: Yes normal visual inspection and Yes supple Resp Effort & Inspection: normal respiratory effort and able to speak in complete sentences Auscultation: clear to auscultation bilaterally Cardio Rate: regular rate Rhythm: regular rhythm Heart sounds: S1 normal heart sound present and S2 normal heart sound present GI Palpation (GI): Soft to palpation and nontender Auscultation: normoactive bowel sounds General: Yes no CVA tenderness Back/Spine/Pelvis Back: no CVA tenderness Skin General skin exam: elasticity normal and turgor normal Neuro General: oriented to person, oriented to place, oriented to time, patient oriented x3, moves all extremities, no focal motor deficits and CN's II-XI intact bilaterally Cranial nerves: Yes Equal, round and reactive pupils present Cognition (Neuro): normal cognition Extrem General: Yes full ROM, Yes no pedal edema and Yes no calf tenderness Left lower extremity: ankle Details: tenderness Location: of the medial malleolus, swelling Details: medially and abnormal ROM (decreased due to pain); no warmth and no ecchymosis and foot Details: normal capillary refill, tenderness Location: of the dorsal foot Location: medially, toes with normal ROM, no edema and vascular exam Details: dorsalis pedis pulse present, posterior tibial pulse present and normal capillary refill; no ecchymosis Psych Mental Status: mental status grossly normal Affect: normal affect Thought process: Normal thought process present Medical Decision Making Medical Decision Making [facility] Narrative: Patient is a 39-year-old female presenting to the emergency department with complaint of left foot and ankle pain since last night. On exam patient is awake, A+Ox3, VS WNL, afebrile, normal neurological exam without focal deficits, physical exam findings as above. Given reported symptoms and physical exam findings, initial differential includes left foot and ankle strain, sprain, fracture, dislocation. X-ray left foot and ankle notable for no evidence of acute fracture dislocation. My interpretation is in agreement with the radiologist's interpretation. Patient updated on results and all questions answered. Will place patient in Jerome wrap to foot and Aircast for ankle. Advised patient to keep foot elevated, apply ice intermittently, Tylenol ibuprofen as needed for discomfort. Will refer to orthopedics for any ongoing symptoms. Return precautions discussed at bedside. Patient verbalized understanding and agreement with plan. Differential Diagnosis Differential Diagnoses: The differential diagnosis associated with the presentation includes As per [facility] Independent Interpretation I performed an independent interpretation of an: Plain X-Ray Interpretation: No evidence of acute fracture or dislocation to left foot or ankle Radiology Impression Discussion of test interpretation with radiology: I have reviewed the radiologist's reading. Radiologist Impression: IMPRESSION: 1. No acute abnormality. 2. Calcaneal spurs. 3. Calcifications in the region of the plantar fascia and deep to the fascia perhaps related to old soft tissue trauma. External Record Review External record reviewed: Inpatient record, Office record and Outpatient record Discharge Plan Discharge Clinical Impression: Left ankle sprain Patient Disposition: Home, Self-Care Instructions: Ankle Sprain (DC), Ankle Stirrup Splint (ED), How to Use an Elastic Bandage (ED), R.I.C.E. Treatment (ED) Additional Instructions: You have been evaluated in the emergency department today for foot and ankle pain. Your evaluation did not find evidence of medical conditions requiring emergent intervention at this time. We have provided a splint and JEROME wrap for you to use while your injury heals. Please rest, ice, and elevate your ankle, and resume normal activities as tolerated. We recommend you take 600mg ibuprofen every 6 hours or 650mg Tylenol every 6 hours as needed for pain. If Needed you can alternate these medications as they take 1 medication every 3 hours. For instance at noon take ibuprofen, then at 3:00 p.m. take Tylenol, then at 6:00 p.m. take ibuprofen. Please schedule an appointment for follow-up with your primary care provider this week. Return to the emergency department if you experience worsening pain, numbness, tingling, change of color in your foot, or any other concerning symptoms. Prescriptions: No Action ibuprofen 800 mg tablet 1 tab PO Q8H PRN (Reason: pain) tizanidine 4 mg tablet 1 tab PO Q6H PRN (Reason: muscle spasm) hydroxyzine HCl 50 mg tablet 1 tab PO TID PRN (Reason: anxiety) tramadol 50 mg tablet 1 tab PO Q6H PRN (Reason: pain) lisinopril 10 mg tablet 1 tab PO DAILY amitriptyline 100 mg tablet 1 tab PO BEDTIME acyclovir sodium 50 mg/mL solution 800 mg IV Q8H 8 Days Qty: 384 0RF sertraline 25 mg Tablet 25 mg PO DAILY Qty: 30 0RF sumatriptan succinate 50 mg tablet 50 mg PO Q2-4H PRN (Reason: migraine headache) Qty: 14 0RF Rx Instructions: do not exceed 4 doses per 24 hrs Referrals: [facility] [Provider Group] Stand Alone Forms: Work/School Release Print Language: Lithuanian
--- NOTE | 2024-08-09 08:41 | PC.NURSE ---
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 No obvious injury noted. +PP. Xray done. Waiting for provider eval.
[2024-08-09 11:01] VITALS: BP 132/81; PULSE 82; RESP 16; TEMP 36.4; O2SAT 98
== END 2024-08-09 11:01 | disposition home or self-care (01) ==
PROVIDERS: Emergency Provider Student in an Organized Health Care Education/Training Program; PCP Nurse Practitioner Family
DX: S93.402A Sprain of unspecified ligament of left ankle, initial encounter (principal); W22.8XXA Striking against or struck by other objects, initial encounter; Y93.9 Activity, unspecified; Y92.010 Kitchen of single-family (private) house as the place of occurrence of the external cause; Y99.9 Unspecified external cause status
CPT/HCPCS: 73610; 73630; 99282; 99283

== ENCOUNTER 2024-08-23 14:46 | Emergency (ER) | payer BC, SELFPAY ==
[2024-08-23 15:15] VITALS: BP 148/94; PULSE 98; RESP 16; TEMP 37; O2SAT 97; BMI 46.3
--- NOTE | 2024-08-23 15:29 | ED_ITS ---
HPI - General Adult General Chief complaint: Extremity Problem Stated complaint: l heel pain Time Seen by Provider: 08/23/24 15:22 Source: patient, RN notes reviewed and old records reviewed Mode of arrival: ambulatory Limitations: no limitations History of Present Illness ED Provider: Kandis DIXON narrative: 39 old female presents for evaluation of left pain. She reports that she sprained her ankle 2 weeks ago and was seen here. She had x-rays of the ankle and for that did not show any evidence of fracture. She reports that she has pain to her heel over the last week She is able to bear weight but has pain with walking. Denies any more recent injuries. She has been wearing an Aircast for ankle pain which has resolved. She sees Orthopedics on Tuesday. She reports a history of plantar fasciitis and has previously had cortisone injections for this Related Data Home Medications ?Medication ?Instructions ?Recorded ?Confirmed amitriptyline 100 mg tablet 1 tab PO BEDTIME 06/23/22 06/23/22 hydroxyzine HCl 50 mg tablet 1 tab PO TID PRN anxiety 06/23/22 06/23/22 ibuprofen 800 mg tablet 1 tab PO Q8H PRN pain 06/23/22 06/23/22 lisinopril 10 mg tablet 1 tab PO DAILY 06/23/22 06/23/22 tizanidine 4 mg tablet 1 tab PO Q6H PRN muscle spasm 06/23/22 06/23/22 tramadol 50 mg tablet 1 tab PO Q6H PRN pain 06/23/22 06/23/22 Previous Rx's ?Medication ?Instructions ?Recorded acyclovir sodium 50 mg/mL 800 mg (16 mL) IV Q8H 8 days #384 07/06/22 intravenous solution mL sertraline 25 mg tablet 25 mg PO DAILY #30 tabs 07/06/22 sumatriptan succinate 50 mg tablet 50 mg PO Q2-4H PRN migraine 05/02/24 headache #14 tabs Allergies Allergy/AdvReac Type Severity Reaction Status Date / Time codeine [CODEINE] Allergy Intermediate HIVES Verified 08/23/24 15:16 shrimp Allergy Unknown Verified 08/23/24 15:16 Review of Systems Constitutional: Constitutional: Denies body ache(s), Denies chills, Denies fever(s) and Denies headache(s) Eyes: Eyes: Denies blurry vision ENT: Denies vertigo, Denies dizziness and Denies headache(s) Cardiovascular: Cardiovascular: Denies chest pain and Denies dyspnea Respiratory: Respiratory: Denies cough and Denies dyspnea Gastrointestinal: Gastrointestinal: Denies abdominal pain, Denies nausea and Denies vomiting Musculoskeletal: Musculoskeletal: Reports arthralgias Integumentary/Breasts: Skin/Breast: Denies rash Neurologic: Denies vertigo, Denies dizziness and Denies headache(s) [facility] Past Medical History Medical History Encephalitis Global aphasia Social History Social History Household Members: Unknown / Unable to assess Housing: Unknown / Unable to assess Unable to assess alcohol history related to: Unknown and Refusing to respond Comment: sitter in hallway Patient Tobacco Use Status: Tobacco use Unknown service: No Current occupational status: employed Physical Exam ED Vital Signs: Vital Signs - 24 hr 08/23/24 15:15 Temperature 98.6 F Pulse Rate 98 Respiratory Rate 16 Blood Pressure 148/94 H Pulse Oximetry 97 Oxygen Delivery Method Room Air BMI result Body Mass Index 46.3 Const General: healthy appearing, comfortable, no acute distress, alert and awake Nutritional Appearance: well nourished Orientation/consciousness: patient oriented x3 HENMT Head: Yes normocephalic and Yes atraumatic Eyes Eyelids: Yes eyelids normal Conjunctivae: conjunctivae normal Sclerae: sclerae normal Corneas: corneas normal Pupils: Equal, round and reactive pupils present EOM: EOMs intact bilaterally Neck Neck: Yes full ROM Resp Effort & Inspection: normal respiratory effort, able to speak in complete sentences and not labored Skin General skin exam: elasticity normal Neuro General: patient oriented x3 Cranial nerves: Yes Equal, round and reactive pupils present and Yes Bilaterally intact EOM present Cognition (Neuro): normal cognition Extrem Other: Moving all extremities well without any obvious deformities. There is no tenderness to the left ankle, no deformities. There is no tenderness to the Achilles tendon region. The patient does have tenderness to the left plantar fascia without deformity. Medical Decision Making Medical Decision Making MDM Narrative: History exam is most consistent with plantar fasciitis. I reviewed her x-rays from 2 weeks ago and I reviewed the calcaneus that is well visualized on the foot x-ray which appears intact. Symptomatic treatment only. The patient will follow up with Orthopedics on Tuesday as planned. Differential Diagnosis Differential Diagnoses: The differential diagnosis associated with the presentation includes Plantar fasciitis Foot pain Gout Foot fracture less likely Discharge Plan Discharge Clinical Impression: Plantar fasciitis of left foot Patient Disposition: Home, Self-Care Instructions: Plantar Fasciitis (ED), Plantar Fasciitis Exercises (ED) Additional Instructions: Your pain is most likely related to plantar fasciitis. Your x-ray did show your heel from 2 weeks ago and did not show any fractures. You may use ibuprofen and Tylenol for pain. Follow-up with your orthopedic appointment on Tuesday as planned. Prescriptions: No Action ibuprofen 800 mg tablet 1 tab PO Q8H PRN (Reason: pain) tizanidine 4 mg tablet 1 tab PO Q6H PRN (Reason: muscle spasm) hydroxyzine HCl 50 mg tablet 1 tab PO TID PRN (Reason: anxiety) tramadol 50 mg tablet 1 tab PO Q6H PRN (Reason: pain) lisinopril 10 mg tablet 1 tab PO DAILY amitriptyline 100 mg tablet 1 tab PO BEDTIME acyclovir sodium 50 mg/mL solution 800 mg IV Q8H 8 Days Qty: 384 0RF sertraline 25 mg Tablet 25 mg PO DAILY Qty: 30 0RF sumatriptan succinate 50 mg tablet 50 mg PO Q2-4H PRN (Reason: migraine headache) Qty: 14 0RF Rx Instructions: do not exceed 4 doses per 24 hrs Stand Alone Forms: Work/School Release Print Language: Slovenian
[2024-08-23 15:59] VITALS: BP 148/94; PULSE 98; RESP 16; TEMP 37; O2SAT 97
== END 2024-08-23 16:00 | disposition home or self-care (01) ==
PROVIDERS: Emergency Provider Emergency Medicine; PCP Nurse Practitioner Family
DX: M72.2 Plantar fascial fibromatosis (principal); M79.672 Pain in left foot
CPT/HCPCS: 99282

== ENCOUNTER 2024-08-27 10:24 | Outpatient (REF) | payer BC, SELFPAY ==
--- NOTE | ~2024-08-27 | XR_ITS ---
EXAMINATION: XR ANKLE 3 OR MORE VIEWS LEFT HISTORY: M25.572 - Pain in left ankle and joints of left foot COMPARISON: Comparison is made with the prior examination dated 08/09/2024. FINDINGS: Three views of the left ankle are submitted. Osseous mineralization is normal. There is no fracture or dislocation. The joint spaces are preserved. There is a small plantar calcaneal spur. Again seen is soft tissue calcification at the plantar aspect of the foot. XR/XR ankle LT min 3V IMPRESSION: Small plantar calcaneal spur. No acute abnormality. Electronically signed by: Lance Camarena MD 09/04/2024 11:28 AM [facility]
== END 2024-08-27 10:25 | disposition home or self-care (01) ==
LOC: HO.HOSX 10:24
DX: M25.572 Pain in left ankle and joints of left foot (principal)
CPT/HCPCS: 73610

== ENCOUNTER 2024-08-27 13:11 | Outpatient (AMB) | payer BC, SELFPAY ==
--- NOTE | 2024-08-27 13:16 | MHC.OFFVIS ---
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 She had an immediate onset of pain and difficulty weight bearing. She was seen at [facility] ED after the injury where she was given a stirrup aircast. She describes anteriolateral pain with flexion, increased pain with weight bearing that causes her to walk on her toes as well as cramping in the calf and numbness in all her toes. She is taking Tramadol and Ibuprofen which is not helping. 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 She went back to [facility] ED where she was then told that her symptoms were due to Plantar fasciitis, she has implemented a cushioned insert for this. She does have an appointment set with a Silver Wrapper in August, she has previously seen a Silver Wrapper where she received plantar fasciitis injections over a year ago. 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 She had an immediate onset of pain and difficulty weight bearing. She was seen at [facility] ED after the injury where she was given a stirrup aircast. She describes anteriolateral pain with flexion, increased pain with weight bearing that causes her to walk on her toes as well as cramping in the calf and numbness in all her toes. She is taking Tramadol and Ibuprofen which is not helping. 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 She went back to [facility] ED where she was then told that her symptoms were due to Plantar fasciitis, she has implemented a cushioned insert for this. She does have an appointment set with a Silver Wrapper in August, she has previously seen a Silver Wrapper where she received plantar fasciitis injections over a year ago. [facility] Medical History Encephalitis Global aphasia Social History Household Members: Unknown / Unable to assess Housing: Unknown / Unable to assess Unable to assess alcohol history related to: Unknown and Refusing to respond Comment: sitter in hallway Patient Tobacco Use Status: Tobacco use Unknown service: No Current occupational status: employed Review of Systems Const All systems reviewed & are unremarkable except as noted in HPI and below Physical Exam Vital Signs: BMI result Body Mass Index 46.2 Extrem Other: On inspection, there is no visible deformity of the patient's left ankle Some very mild edema noted anterolateral aspect of the patient's left ankle, no erythema or ecchymosis noted No lacerations, abrasions, open areas No evidence of infection Patient reports no tenderness to palpation about the medial , lateral malleolus, or elsewhere on the left foot or ankle Patient ambulates with a slightly antalgic gait Patient reports pain in the left ankle with ambulation Results Reviewed Results Reviewed: X-rays obtained in the office today and independently reviewed by me, Diego Paul PA-C, demonstrate no fracture or acute bony abnormality of the left ankle. Assessment & Plan Assessment & Plan (1) Contusion of left ankle: Code(s): S90.02XA - Contusion of left ankle, initial encounter Category: Medical Plan 1. Bony contusion of the left ankle Date of injury 08/08/2024 Patient is educated about this condition Patient is educated about the typical recovery course At this time, patient was provided with a lace-up ankle brace to be worn with daytime activities for the next 2 weeks Patient is advised that after 2 weeks, she should begin to gradually wean out of the lace-up ankle brace, until approximately 4 weeks from today when she should be not using lace-up brace thing more Patient is offered referral to physical therapy at this time, but declines, stating that she does not feel that physical therapy will help her If patient was still experiencing pain in 4-6 weeks, she should call our office for re-evaluation and potential referral to physical therapy Patient was amenable to this plan Patient will follow-up as needed with any acute concerns Coding Level of Care Code New Pt Level 3 (30582) Diagnoses Contusion of left ankle S90.02XA
[2024-08-27 13:17] VITALS: BMI 46.2
== END 2024-08-27 14:06 | disposition home or self-care (01) ==
PROVIDERS: PCP Nurse Practitioner Family
DX: S90.02XA Contusion of left ankle, initial encounter (principal)
CPT/HCPCS: 99203

== ENCOUNTER → 2024-08-27 13:43 | Outpatient (BNV) | payer BC, SELFPAY | PROVIDERS: Visit Provider Radiology Diagnostic Radiology | DX: M25.572 Pain in left ankle and joints of left foot (principal) | CPT/HCPCS: 73610 ==